=== PATIENT | male | born 1950 | race Caucasian/White ===

== ENCOUNTER 2018-06-18 15:26 | Inpatient (IN) | payer MEDICARE, OTHER ==
[~2018-06-18] VITALS: Ht 170.2 cm; Wt 88.5 kg
[2018-06-18 17:45] VITALS: BP 129/66
[2018-06-18] MEDS ORDERED: CALCIUM CARBONATE 500 MG TAB.CHEW PO PRN (18:00)
[2018-06-18] MEDS ORDERED: HYDROcodone/APAP 5/325MG 1 TAB TABLET PO PRN (18:00)
[2018-06-18] MEDS ORDERED: 0.9 % SODIUM CHLORIDE 10 ML DISP.SYRIN. IV PRN (18:00)
[2018-06-18] MEDS ORDERED: MAGNESIUM HYDROXIDE 2,400 MG/30 ML ORAL.SUSP. PO PRN (18:00)
[2018-06-18] MEDS ORDERED: ACETAMINOPHEN 325 MG TABLET. PO PRN (18:00)
[2018-06-18] MEDS ORDERED: fentaNYL PF VIAL 100 MCG/2 ML VIAL IV PRN (18:00)
--- NOTE | 2018-06-18 18:03 | HP ---
ADMIT DATE: 06/18/2018 REASON FOR ADMISSION: Lower extremity weakness. HISTORY OF PRESENT ILLNESS: The patient is a pleasant 67-year-old man who reports over the last month increasing pain in his lower back along with feelings of electricity radiating into his lower extremities and weakness in his lower extremities. He reports that he has had problems with intermittent leg numbness in the past, beginning a month ago he developed much more significant pain in his lower back along with numbness and weakness in his lower extremities. His left leg is more involved than the right. He has been taking gabapentin to try to help him. Recently, because of leg weakness and falling he has started to use a walker. He rates his pain as a 4-5/10. He reports no bowel or bladder difficulties. PAST MEDICAL HISTORY: He has renal disease. He has problems with cardiac rhythm and has a pacemaker. PERSONAL HISTORY: He is . He lives with his . MEDICATIONS: Available on the chart and are noncontributory. ALLERGIES: NKDA REVIEW OF SYSTEMS: A 12 points was reviewed and was negative. PHYSICAL EXAMINATION: GENERAL: He is pleasant, alert and cooperative. NEUROLOGIC: He is alert and oriented x 3. His strength was 4/5 in bilateral lower extremities. In his upper extremities, strength was 5/5. On sensory examination, his sensation was normal in the upper extremities. In his lower extremities, he noted a decrease in light touch, which began in the lower abdominal wall anteriorly and extended to involve both of his lower extremities. His left leg he felt was slightly more involved with decreased sensation on the right. On reflex testing, his upper extremity reflexes were 1+. In his lower extremities, knee jerks were 3+, ankle jerks were 1+. There were no pathologic reflexes. He walked using a walker to support himself. Earlier today, he underwent myelography to include the cervical, thoracic and lumbar spine. There are a significant number of abnormalities. In the lumbar spine, he has severe stenosis at L2-L3 and very severe stenosis at L3-L4, which could include a broad-based disk herniation. There is complete block at L3-L4. At T10-T11, there is a left-sided disk herniation with marked deviation of the spinal cord from the left to right and moderately severe spinal stenosis. In the cervical spine, at C5-C6 there is severe cervical spinal stenosis. ASSESSMENT AND PLAN: Based on his sensory level and his hyperreflexia, my concern is that the problem at T10-T11 is responsible for his recent severe deterioration. My plan at this point would be to admit him and have him undergo thoracic surgery to remove the thoracic disc herniation. I did discuss this with him and outlined the risks of this type of operation and possibility of paralysis with this sort of problem and surgery. He understands that this most likely would not correct all of his problems and most certainly at some point he is going to require lumbar surgery and cervical surgery for his significant problems. MICHEAL HERNANDEZ MD DR: THUY/kaye JOB#: [id number] / [id number] PEPE
--- NOTE | 2018-06-18 18:13 | EKG ---
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
[2018-06-18 18:41] LABS: BASO # 0.1 x10^3/uL (0.0-0.2); BASO % 1 % (0-3); EOS # 0.1 x10^3/uL (0.0-0.7); EOS % 2 % (0-3); HEMATOCRIT 44.3 % (39.0-53.0); HEMOGLOBIN 14.8 g/dL (13.0-17.5); LYMPH % 27 % (24-48); MEAN CORPUSCULAR HEMOGLOBIN 31 pg (25-35); MEAN CORPUSCULAR HGB CONC 33 g/dL (31-37); MEAN CORPUSCULAR VOLUME 94 fL (79-100); MONO # 0.6 x10^3/uL (0.0-1.1); MONO % 9 % (0-9); NEUT # 4.6 x10^3uL (1.8-7.7); NEUT % 62 % (31-73); PLATELET COUNT 153 x10^3/uL (140-400); RED BLOOD COUNT 4.71 x10^6/uL (4.30-5.70); RED CELL DISTRIBUTION WIDTH 12.4 % (11.5-14.5); WHITE BLOOD COUNT 7.4 x10^3/uL (4.0-11.0)
[2018-06-18 18:48] LABS: PROTHROMBIN TIME PATIENT 14.2 SEC (11.7-14.0)
[2018-06-18 18:57] LABS: ALBUMIN 3.8 g/dL (3.4-5.0); ALBUMIN/GLOBULIN RATIO 1.1 (1.0-1.7); CALCIUM 8.9 mg/dL (8.5-10.1); GFR 74.8; POTASSIUM 3.7 mmol/L (3.5-5.1); TOTAL BILIRUBIN 0.6 mg/dL (0.2-1.0); TOTAL PROTEIN 7.3 g/dL (6.4-8.2)
[2018-06-18 19:00] VITALS: BP 143/91
--- NOTE | 2018-06-18 19:00 | NUR ---
ADMIT Patient arrived on . Patient A/Ox4, room air. Several family members at bedside. Patient c/o pain in back, radiating down both legs 7/10, 3/10 with spasms down right and left legs, more so in right leg. Patient currently more comfortable in chair. Full admission assessment completed, fall precautions posted at this time. IV Access initiated. IVF will be started. Verified home meds, and placed in computer at this time. Passcode given to spouse at bedside. Discussed plan of care, NPO at 12am. Will continue to monitor closely.
[2018-06-18] MEDS ORDERED: LISI10TA2 PO (20:45)
[2018-06-18] MEDS ORDERED: LISI-334 PO (20:45)
[2018-06-18] MEDS ORDERED: OMEG1CAP6 PO (20:45)
[2018-06-18] MEDS ORDERED: MELO7.5T29 PO (20:45)
[2018-06-18] MEDS ORDERED: METO25TA4 PO (20:45)
[2018-06-18] MEDS ORDERED: HYDR12.59 PO (20:45)
[2018-06-18] MEDS ORDERED: ATOR20TA58 PO (20:45)
[2018-06-18] MEDS ORDERED: GABA300C18 PO (20:45)
[2018-06-18] MEDS ORDERED: AMLO5TAB10 PO (20:45)
[2018-06-18] MEDS: DOCUSATE SODIUM 100 MG CAPSULE. PO SCH (22:38)
[2018-06-18 23:00] VITALS: BP 143/91
[2018-06-18] MEDS: CYCLOBENZAPRINE 10 MG TABLET. PO PRN (23:08)
[2018-06-18] MEDS: POTASSIUM CL 20MEQ D5-0.45NACL 1,000 ML IV SCH (23:24)
[2018-06-19] MEDS: HYDROcodone/APAP 5/325MG 1 TAB TABLET PO PRN ×3 (00:02→20:45)
[2018-06-19 03:00] VITALS: BP 124/69
--- NOTE | 2018-06-19 06:41 | NUR ---
Routine consult called to Dr. Fernandes regarding pre-op cardiac clearance. Message left with Sarah at answering service.
--- NOTE | 2018-06-19 06:47 | NUR ---
Routine consult called to Dr. Le, [facility]. Message left with Malini, answering service. Dr. Win currently electronic tech.
[2018-06-19 07:00] VITALS: BP 138/73
[2018-06-19] MEDS: POTASSIUM CL 20MEQ D5-0.45NACL 1,000 ML IV SCH ×2 (07:07→17:20)
--- NOTE | 2018-06-19 07:51 | PDOC2 ---
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 He reports that he has had problems with intermittent leg numbness in the past, beginning a month ago he developed much more significant pain in his lower back along with numbness and weakness in his lower extremities. His left leg is more involved than the right. Recently, because of leg weakness and falling he has started to use a walker. He rates his pain as a 4-5/10. He reports no bowel or bladder difficulties. He notes gabapentin gives him minimal relief. He has significant thoracic stenosis and has had myelogram outpatient 06/18/18 to evidence this. Pt has not been having any chest pain, SOA. No cardiac symptoms. No palpitations, frequent dizziness. Denies any past CAD and it over 3 yrs since his last stress test. He does have hx of complete heart block s/p PPM which was originally placed at least the lead in 1990 then several generator change with the same lead since then with last generator change in 2014. 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 Past Medical History Cardiovascular: HTN, Other (PPM 2/2 complete heart block) Pulmonary: No pertinent hx GI: No pertinent hx Heme/Onc: No pertinent hx Hepatobiliary: No pertinent hx Psych: No pertinent hx Musculoskeletal: low back pain, Weakness Rheumatologic: No pertinent hx Infectious disease: No pertinent hx ENT: No pertinent hx Renal/: Chronic renal insuff Endocrine: No pertinent hx Dermatology: No pertinent hx Past Surgical History Past Surgical History: Pacemaker Family History Family History: High Cholestrol, Hypertension Social History No ALCOHOL: rare Drugs: None Lives: with Family Domestic Violence: Neg Current Medications Current Medications Current Medications Sodium Chloride (Normal Saline Flush) 3 ml PRN DAILY PRN IV AFTER MEDS AND BLOOD DRAWS; Start 06/18/18 at 18:00 Potassium Chloride/Dextrose/ Sod Cl 1,000 ml @ 75 mls/hr [id number] IV Last administered on 06/18/18at 23:24; Start 06/18/18 at 17:47 Calcium Carbonate/ Glycine (Tums) 500 mg PRN Q3HRS PRN PO UPSET STOMACH; Start 06/18/18 at 18:00 Acetaminophen/ Hydrocodone Bitart (Lortab 5/325) 1 tab PRN Q4HRS PRN PO MILD PAIN Last administered on 06/19/18at 05:45; Start 06/18/18 at 18:00 Acetaminophen/ Hydrocodone Bitart (Lortab 5/325) 2 tab PRN Q4HRS PRN PO MODERATE PAIN, SEVERE PAIN; Start 06/18/18 at 18:00 Acetaminophen (Tylenol) 650 mg PRN Q6HRS PRN PO Headaches, Temp > 101.5F; Start 06/18/18 at 18:00 Docusate Sodium (Colace) 100 mg BID PO ; Start 06/18/18 at 21:00 Magnesium Hydroxide (Milk Of Magnesia) 2,400 mg PRN Q12HR PRN PO CONSTIPATION; Start 06/18/18 at 18:00 Fentanyl Citrate (Fentanyl 2ml Vial) 25 mcg PRN Q2HR PRN IV MODERATE PAIN; Start 06/18/18 at 18:00 Cyclobenzaprine HCl (Flexeril) 10 mg PRN TID PRN PO MUSCLE SPASMS Last administered on 06/18/18at 23:08; Start 06/18/18 at 23:00 Amlodipine Besylate (Norvasc) 5 mg DAILY PO ; Start 06/19/18 at 09:00 Atorvastatin Calcium (Lipitor) 20 mg HS PO ; Start 06/19/18 at 21:00 Gabapentin (Neurontin) 300 mg TID PO ; Start 06/19/18 at 09:00 Lisinopril (Prinivil) 10 mg DAILY16 PO ; Start 06/19/18 at 16:00 Lisinopril (Prinivil) 20 mg DAILY PO ; Start 06/19/18 at 09:00 Metoprolol Tartrate (Lopressor) 25 mg BID PO ; Start 06/19/18 at 09:00 Hydrochlorothiazide (Microzide) 12.5 mg DAILY PO ; Start 06/19/18 at 09:00 Active Scripts Active Reported Meloxicam 7.5 Mg Tablet 1 Tab PO DAILY Fish Oil 1,000 Mg Capsule ([place]-3 Fatty Acids/Fish Oil) 1 Each Capsule 1 Each PO BID Hydrochlorothiazide 12.5 Mg Capsule 12.5 Mg PO DAILY Lisinopril 10 Mg Tablet 1 Tab PO DAILY16 Lisinopril 20 Mg Tablet 1 Tab PO DAILY Metoprolol Tartrate 25 Mg Tablet 1 Tab PO BID Gabapentin (Gabapentin) 300 Mg Capsule 300 Mg PO TID Atorvastatin Calcium 20 Mg Tablet 1 Tab PO DAILY Amlodipine Besylate 5 Mg Tablet 5 Mg PO DAILY Allergies Allergies: Coded Allergies: No Known Drug Allergies (Unverified , 06/18/18) ROS General: No: Chills, Night Sweats, Fatigue, Malaise, Appetite, Other PSYCHOLOGICAL ROS: No: Anxiety, Behavioral Disorder, Concentration difficultie , Decreased libido, Depression, Disorientation, Hallucinations, Hostility, Irritablity, Memory difficulties, Mood Swings, Obsessive thoughts, Physical abuse, Sexual abuse, Sleep disturbances, Suicidal ideation, Other Eyes: No Blurry vision, No Decreased vision, No Double vision, No Dry eyes, No Excessive tearing, No Eye Pain, No Itchy Eyes, No Loss of vision, No Photophobia , No Scotomata, No Uses contacts, No Uses glasses, No Other HEENT: No: Heacaches, Visual Changes, Hearing change, Nasal congestion, Nasal discharge, Oral lesions, Sinus pain, Sore Throat, Epistaxis, Sneezing, Snoring, Tinnitus, Vertigo, Vocal changes, Other ALLERGY AND IMMUNOLOGY: No: Hives, Insect Bite Sensitivity, Itchy/Watery Eyes, Nasal Congestion, Post Nasal Drip, Seasonal Allergies, Other Hematological and Lymphatic: No: Bleeding Problems, Blood Clots, Blood Transfusions, Brusing, Night Sweats, Pallor, Swollen Lymph Nodes, Other ENDOCRINE: No: Breast Changes, Galactorrhea, Hair Pattern Changes, Hot Flashes , Malaise/lethargy, Mood Swings, Palpitations, Polydipsia/polyuria, Skin Changes , Temperature Intolerance, Unexpected Weight Changes, Other Breast: No New/Changing Breast Lumps, No Nipple changes, No Nipple discharge, No Other Respiratory: No: Cough, Hemoptysis, Orthopnea, Pleuritic Pain, Shortness of breath, SOB with excertion, Sputum Changes, Stridor, Tachypnea, Wheezing, Other Cardiovascular: No Chest Pain, No Palpitations, No Orthopnea, No Paroxysmal Noc. Dyspnea, No Edema, No Lt Headedness, No Other Gastrointestinal: No Nausea, No Vomiting, No Abdominal Pain, No Diarrhea, No Constipation, No Melena, No Hematochezia, No Other Genitourinary: No Dysuria, No Frequency, No Incontinence, No Hematuria, No Retention, No Discharge, No Urgency, No Pain, No Flank Pain, No Other, No , No , No , No , No , No , No Musculoskeletal: Yes Gait Disturbance, Yes Joint Pain, Yes Joint Stiffness, Yes Muscle Pain, Yes Muscular Weakness; No Joint Swelling, No Pain In:, No Swelling In:, No Other Neurological: Yes Gait Disturbance, Yes Impaired Coord/balance, Yes Numbness/ Tingling; No Behavorial Changes, No Bowel/Bladder ControlChng, No Confusion, No Dizziness, No Headaches, No Memory Loss, No Seizures, No Speech Problems, No Tremors, No Visual Changes, No Weakness, No Other Skin: No Dry Skin, No Eczema, No Hair Changes, No Lumps, No Mole Changes, No Mottling, No Nail Changes, No Pruritus, No Rash, No Skin Lesion Changes, No Other, No Acne Physical Exam Physical Exam His strength was 4/5 in bilateral lower extremities. In his upper extremities, strength was 5/5. On sensory examination, his sensation was normal in the upper extremities. In his lower extremities, he noted a decrease in light touch , which began in the lower abdominal wall anteriorly and extended to involve both of his lower extremities. His left leg he felt was slightly more involved with decreased sensation on the right. On reflex testing, his upper extremity reflexes were 1+. In his lower extremities, knee jerks were 3+, ankle jerks were 1+. There were no pathologic reflexes. He walked using a walker to support himself. General: Alert, Oriented X3, Cooperative, No acute distress HEENT: Atraumatic, PERRLA, EOMI, Mucous membr. moist/pink Lungs: Clear to auscultation, Normal air movement Heart: Regular rate, Normal S1, Normal S2, No murmurs Abdomen: Normal bowel sounds, Soft, No tenderness, No hepatosplenomegaly, No masses Extremities: No clubbing, No cyanosis, No edema, Normal pulses, No tenderness/ swelling Skin: No rashes, No breakdown Neuro: Normal speech, Normal tone, Cranial nerves 3-12 NL, Reflexes 2+ ( Hyperreflexic left leg, some fasciculations), Other (H) Psych/Mental Status: Mental status NL, Mood NL MUSCULOSKELETAL: No joint tenderness, No deformity, No swelling, No muscular tenderness noted Vitals VITALS Vital Signs Date Time Temp Pulse Resp B/P (MAP) Pulse Ox O2 Delivery O2 Flow Rate FiO2 06/19/18 07:00 97.9 60 18 138/73 (94) 96 Room Air 97.9 Labs Labs Laboratory Tests Test 06/18/18 18:25 White Blood Count 7.4 x10^3/uL (4.0-11.0) Red Blood Count 4.71 x10^6/uL (4.30-5.70) Hemoglobin 14.8 g/dL (13.0-17.5) Hematocrit 44.3 % (39.0-53.0) Mean Corpuscular Volume 94 fL (79-100) Mean Corpuscular Hemoglobin 31 pg (25-35) Mean Corpuscular Hemoglobin Concent 33 g/dL (31-37) Red Cell Distribution Width 12.4 % (11.5-14.5) Platelet Count 153 x10^3/uL (140-400) Neutrophils (%) (Auto) 62 % (31-73) Lymphocytes (%) (Auto) 27 % (24-48) Monocytes (%) (Auto) 9 % (0-9) Eosinophils (%) (Auto) 2 % (0-3) Basophils (%) (Auto) 1 % (0-3) Neutrophils # (Auto) 4.6 x10^3uL (1.8-7.7) Lymphocytes # (Auto) 2.0 x10^3/uL (1.0-4.8) Monocytes # (Auto) 0.6 x10^3/uL (0.0-1.1) Eosinophils # (Auto) 0.1 x10^3/uL (0.0-0.7) Basophils # (Auto) 0.1 x10^3/uL (0.0-0.2) Prothrombin Time 14.2 SEC (11.7-14.0) Prothromb Time International Ratio 1.1 (0.8-1.1) Sodium Level 142 mmol/L (136-145) Potassium Level 3.7 mmol/L (3.5-5.1) Chloride Level 106 mmol/L (98-107) Carbon Dioxide Level 26 mmol/L (21-32) Anion Gap 10 (6-14) Blood Urea Nitrogen 27 mg/dL (8-26) Creatinine 1.0 mg/dL (0.7-1.3) Estimated GFR (Cockcroft-Gault) 74.8 BUN/Creatinine Ratio 27 (6-20) Glucose Level 101 mg/dL (70-99) Calcium Level 8.9 mg/dL (8.5-10.1) Total Bilirubin 0.6 mg/dL (0.2-1.0) Aspartate Amino Transf (AST/SGOT) 23 U/L (15-37) Alanine Aminotransferase (ALT/SGPT) 24 U/L (16-63) Alkaline Phosphatase 68 U/L (46-116) Total Protein 7.3 g/dL (6.4-8.2) Albumin 3.8 g/dL (3.4-5.0) Albumin/Globulin Ratio 1.1 (1.0-1.7) Laboratory Tests Test 06/18/18 18:25 White Blood Count 7.4 x10^3/uL (4.0-11.0) Red Blood Count 4.71 x10^6/uL (4.30-5.70) Hemoglobin 14.8 g/dL (13.0-17.5) Hematocrit 44.3 % (39.0-53.0) Mean Corpuscular Volume 94 fL (79-100) Mean Corpuscular Hemoglobin 31 pg (25-35) Mean Corpuscular Hemoglobin Concent 33 g/dL (31-37) Red Cell Distribution Width 12.4 % (11.5-14.5) Platelet Count 153 x10^3/uL (140-400) Neutrophils (%) (Auto) 62 % (31-73) Lymphocytes (%) (Auto) 27 % (24-48) Monocytes (%) (Auto) 9 % (0-9) Eosinophils (%) (Auto) 2 % (0-3) Basophils (%) (Auto) 1 % (0-3) Neutrophils # (Auto) 4.6 x10^3uL (1.8-7.7) Lymphocytes # (Auto) 2.0 x10^3/uL (1.0-4.8) Monocytes # (Auto) 0.6 x10^3/uL (0.0-1.1) Eosinophils # (Auto) 0.1 x10^3/uL (0.0-0.7) Basophils # (Auto) 0.1 x10^3/uL (0.0-0.2) Prothrombin Time 14.2 SEC (11.7-14.0) Prothromb Time International Ratio 1.1 (0.8-1.1) Sodium Level 142 mmol/L (136-145) Potassium Level 3.7 mmol/L (3.5-5.1) Chloride Level 106 mmol/L (98-107) Carbon Dioxide Level 26 mmol/L (21-32) Anion Gap 10 (6-14) Blood Urea Nitrogen 27 mg/dL (8-26) Creatinine 1.0 mg/dL (0.7-1.3) Estimated GFR (Cockcroft-Gault) 74.8 BUN/Creatinine Ratio 27 (6-20) Glucose Level 101 mg/dL (70-99) Calcium Level 8.9 mg/dL (8.5-10.1) Total Bilirubin 0.6 mg/dL (0.2-1.0) Aspartate Amino Transf (AST/SGOT) 23 U/L (15-37) Alanine Aminotransferase (ALT/SGPT) 24 U/L (16-63) Alkaline Phosphatase 68 U/L (46-116) Total Protein 7.3 g/dL (6.4-8.2) Albumin 3.8 g/dL (3.4-5.0) Albumin/Globulin Ratio 1.1 (1.0-1.7) Images Images Myelogram - In the lumbar spine, he has severe stenosis at L2-L3 and very severe stenosis at L3-L4, which could include a broad-based disk herniation. There is complete block at L3-L4. At T10-T11, there is a left-sided disk herniation with marked deviation of the spinal cord from the left to right and moderately severe spinal stenosis. In the cervical spine, at C5-C6 there is severe cervical spinal stenosis. Assessment/Plan Assessment/Plan A/P: Lower extremity numbness and weakness - likely compression at T10-T11 is responsible for his recent severe weakness and numbness HTN - controlled CKD1 - IVF 500cc-1000cc pre op appropriate. Labs stable Complete heart block s/p PPM in situ - medtronic device, cardiology will interrogate. EKG shows a sinus rhythm. Can have Echocardiogram VILLA on CPAP - has brought his device. I recommend bedside BIPAP availability post-operatively for respiratory bridging to avoid prolonged vent stay Patient would be at moderate cardiovascular risk for lower risk noncardiac surgery. Recommend routine pacer care intraoperatively per anesthesia protocol No further testing necessary prior to planned surgery tomorrow FEN - cardiac diet, npo after midnight PPX - ambulatory, post op lovenox FULL CODE Inpatient for likely thoracic spinal compression, at least 2 midnights of inpatient care. 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 CHUY JHA MD Jun 19, 2018 07:51
[2018-06-19] MEDS: DOCUSATE SODIUM 100 MG CAPSULE. PO SCH ×2 (08:37→20:44)
[2018-06-19] MEDS: hydroCHLOROthiazide 12.5 MG CAPSULE PO SCH ×2 (09:00→14:32)
[2018-06-19] MEDS: GABAPENTIN 300 MG CAPSULE. PO SCH ×3 (09:00→20:45)
[2018-06-19] MEDS: LISINOPRIL 20 MG TABLET PO SCH ×2 (09:00→14:33)
[2018-06-19] MEDS: amLODIPine BESYLATE 5 MG TABLET PO SCH ×2 (09:00→14:33)
--- NOTE | 2018-06-19 09:40 | PDOC2 ---
CARDIAC CONSULT DATE OF CONSULT Date of Consult DATE: 06/19/18 TIME: 09:25 REASON FOR CONSULT Reason for Consult: Preo clearance REFERRING PHYSICIAN Referring Physician: Douglas SOURCE Source: Chart review, Patient HISTORY OF PRESENT ILLNESS HISTORY OF PRESENT ILLNESS This is a pleasant 67 yo male admitted for complains of persistent leg weakness , back pain. He has significant thoracic stenosis and has been having worsening symptoms such as decreased LE mobility, sensation and back pain. Surgery for decompression is planned today and requiring perop eval. Pt has not been having any chest pain, SOA. No cardiac symptoms. No palpitations, frequent dizziness. Denies any past CAD and it over 3 yrs since his last stress test. He does have hx of complete heart which was originally placed at least the lead in 1990 then several generator change with the same lead since then with last generator change in 2014. 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 He has HTn and takes his meds regularly. PAST MEDICAL HISTORY Cardiovascular: HTN, Other (CHF) Pulmonary: Other (VILLA with CPAP) GI: No pertinent hx Heme/Onc: No pertinent hx Hepatobiliary: No pertinent hx Psych: No pertinent hx Musculoskeletal: low back pain, Osteoarthritis Rheumatologic: No pertinent hx Infectious disease: No pertinent hx Renal/: No pertinent hx Endocrine: No pertinent hx Dermatology: No pertinent hx PAST SURGICAL HISTORY Past Surgical History: Pacemaker (with several gen change last done in 2014), Other (cervical fusion) FAMILY HISTORY Family History: Heart Disease (father) SOCIAL HISTORY Smoke: No ALCOHOL: none Drugs: None Lives: with Family CURRENT MEDICATIONS CURRENT MEDICATIONS Current Medications Medications (Trade) Dose Ordered Sig/Antonina Route PRN Reason Start Time Stop Time Status Last Admin Dose Admin Potassium Chloride/Dextrose/ Sod Cl 1,000 ml @ 75 mls/hr [id number] IV 06/18/18 17:47 06/18/18 23:24 Acetaminophen/ Hydrocodone Bitart (Lortab 5/325) 1 tab PRN Q4HRS PRN PO MILD PAIN 06/18/18 18:00 06/19/18 05:45 Cyclobenzaprine HCl (Flexeril) 10 mg PRN TID PRN PO MUSCLE SPASMS 06/18/18 23:00 06/18/18 23:08 ALLERGIES ALLERGIES: Coded Allergies: No Known Drug Allergies (Unverified , 06/18/18) ROS Review of System 14 point ROS evaluated with pertinent positives noted per HPI PHYSICAL EXAM General: Alert, Oriented X3, Cooperative, No acute distress HEENT: Atraumatic, Mucous membr. moist/pink Lungs: Clear to auscultation, Normal air movement Heart: Regular rate (SR), Normal S1, Normal S2, Other (2/6 systolic murmur to LLS border) Abdomen: Soft, No tenderness Extremities: No cyanosis, No edema Skin: No breakdown, No significant lesion Neuro: Normal speech, Other (decrease LE sensation and weakness. ) Psych/Mental Status: Mental status NL, Mood NL MUSCULOSKELETAL: Osteoarthritic changes both hands VITALS VITALS Vital Signs Date Time Temp Pulse Resp B/P (MAP) Pulse Ox O2 Delivery O2 Flow Rate FiO2 06/19/18 07:00 97.9 60 18 138/73 (94) 96 Room Air 97.9 LABS Lab: Laboratory Tests Test 06/18/18 18:25 White Blood Count 7.4 x10^3/uL (4.0-11.0) Red Blood Count 4.71 x10^6/uL (4.30-5.70) Hemoglobin 14.8 g/dL (13.0-17.5) Hematocrit 44.3 % (39.0-53.0) Mean Corpuscular Volume 94 fL (79-100) Mean Corpuscular Hemoglobin 31 pg (25-35) Mean Corpuscular Hemoglobin Concent 33 g/dL (31-37) Red Cell Distribution Width 12.4 % (11.5-14.5) Platelet Count 153 x10^3/uL (140-400) Neutrophils (%) (Auto) 62 % (31-73) Lymphocytes (%) (Auto) 27 % (24-48) Monocytes (%) (Auto) 9 % (0-9) Eosinophils (%) (Auto) 2 % (0-3) Basophils (%) (Auto) 1 % (0-3) Neutrophils # (Auto) 4.6 x10^3uL (1.8-7.7) Lymphocytes # (Auto) 2.0 x10^3/uL (1.0-4.8) Monocytes # (Auto) 0.6 x10^3/uL (0.0-1.1) Eosinophils # (Auto) 0.1 x10^3/uL (0.0-0.7) Basophils # (Auto) 0.1 x10^3/uL (0.0-0.2) Prothrombin Time 14.2 SEC (11.7-14.0) Prothromb Time International Ratio 1.1 (0.8-1.1) Sodium Level 142 mmol/L (136-145) Potassium Level 3.7 mmol/L (3.5-5.1) Chloride Level 106 mmol/L (98-107) Carbon Dioxide Level 26 mmol/L (21-32) Anion Gap 10 (6-14) Blood Urea Nitrogen 27 mg/dL (8-26) Creatinine 1.0 mg/dL (0.7-1.3) Estimated GFR (Cockcroft-Gault) 74.8 BUN/Creatinine Ratio 27 (6-20) Glucose Level 101 mg/dL (70-99) Calcium Level 8.9 mg/dL (8.5-10.1) Total Bilirubin 0.6 mg/dL (0.2-1.0) Aspartate Amino Transf (AST/SGOT) 23 U/L (15-37) Alanine Aminotransferase (ALT/SGPT) 24 U/L (16-63) Alkaline Phosphatase 68 U/L (46-116) Total Protein 7.3 g/dL (6.4-8.2) Albumin 3.8 g/dL (3.4-5.0) Albumin/Globulin Ratio 1.1 (1.0-1.7) ASSESSMENT/PLAN ASSESSMENT/PLAN 1. Severe thoracic stenosis with increasing LE symptoms: needing surgery per neurosurgery 2. HTN: controlled 3. PPM in situ: medtronic due to past CHB. Presently EKG appears to be SB with likely lowest setting at 50 Recommendations 1. Continue perop BB. TTE today. Pending TTE he is low risk for preoperative CV events for noncardiac surgery. 2. Restart home BP regimen after surgery 3. Will try to interrogate device. CHANDANA MCKENZIE APRN Jun 19, 2018 09:40
[2018-06-19] MEDS: METOPROLOL TART IMMED RELEASE 25 MG TABLET. PO SCH ×2 (10:03→20:46)
--- NOTE | 2018-06-19 10:22 | CARD ---
MR#: [id number] Date of Study: 06/19/2018 Ordering Physician: CHANDANA MCKENZIE, Referring Physician: MICHEAL HERNANDEZ Tech: Becca Sainz KARLIE APPROVED REPORT EXAM: Two-dimensional and M-mode echocardiogram with Doppler and color Doppler. Other Information Quality : Good INDICATION Pre-Op Surgery/Intervention Pacemaker: Date: 2000 2D DIMENSIONS RVDd2.3 (2.9-3.5cm)Left Atrium(2D)4.0 (1.6-4.0cm) IVSd0.9 (0.7-1.1cm)Aortic Root(2D)3.1 (2.0-3.7cm) LVDd5.6 (3.9-5.9cm)LVOT Diameter2.0 (1.8-2.4cm) PWd0.7 (0.7-1.1cm)LVDs2.8 (2.5-4.0cm) FS (%) 30.0 %LVEF(%)60.0 (>50%) Aortic Valve AoV Peak Noman.168.2cm/sAoV VTI31.7cm AO Peak GR.11.3mmHgLVOT VTI 26.32cm AO Mean GR.6mmHgAVA (VTI)2.50cm2 Mitral Valve MV E Fqvetocw475.2cm/sMV DECEL VEMQ989xo MV A Ywkqrmsb02.4cm/sE/A Ratio1.3 TDI Lateral E' P. V10.21cm/sMedial E' P. V7.98cm/s E/Lateral E'12.2E/Medial E'15.6 Tricuspid Valve TR P. Tbommvud814mo/sRAP QHNCKJUE1joCz TR Peak Gr.31tnYwPDGM61efPh Pulmonary Vein S1 Mutqtwlu58.7cm/sS2 Ayjaomiq05.92cm/s D2 Kehdwrki49.9cm/s LEFT VENTRICLE The Left Ventricle is mildly dilated. There is normal left ventricular wall thickness. The left ventr icular systolic function is normal and the ejection fraction is within normal range. The Ejection Fra ction is 55-60%. There is normal LV segmental wall motion. Transmitral Doppler flow pattern is Grade I-abnormal relaxation pattern. RIGHT VENTRICLE The right ventricle is normal size. The right ventricular systolic function is normal. There is a pac emaker lead in the right ventricle. ATRIA The left atrium is mildly dilated. The right atrium size is normal. A pacemaker is seen in the right atrium consistent with history. The interatrial septum is intact with no evidence for an atrial septa l defect or patent foramen ovale as noted on 2-D or Doppler imaging. AORTIC VALVE The aortic valve is calcified but opens well. Doppler and Color Flow revealed no significant aortic r egurgitation. There is no significant aortic valvular stenosis. MITRAL VALVE The mitral valve is calcified but opens well. Mitral annular calcification is mild. There is no evide nce of mitral valve prolapse. There is no mitral valve stenosis. Doppler and Color-flow revealed trac e to mild mitral regurgitation. TRICUSPID VALVE The tricuspid valve is normal in structure and function. Doppler and Color Flow revealed physiologica l tricuspid regurgitation. The PA pressure was estimated at 31 mmHg. There is no tricuspid valve sten osis. PULMONIC VALVE The pulmonic valve is not well visualized. Doppler and Color Flow revealed trace pulmonic valvular re gurgitation. There is no pulmonic valvular stenosis. GREAT VESSELS The aortic root is normal in size. The ascending aorta is normal in size. The IVC is normal in size a nd collapses >50% with inspiration. PERICARDIAL EFFUSION There is no evidence of significant pericardial effusion. Critical Notification Critical Value: No <Conclusion> The left ventricular systolic function is normal and the ejection fraction is within normal range. Th e Ejection Fraction is 55-60%. There is normal LV segmental wall motion. There is a pacemaker lead in the right ventricle. Signed by : Sage Fernandes, Electronically Approved : 06/19/2018 10:21:12
[2018-06-19 11:00] VITALS: BP 150/81
[2018-06-19] MEDS: CYCLOBENZAPRINE 10 MG TABLET. PO PRN ×2 (11:45→20:53)
--- NOTE | 2018-06-19 11:48 | NUR ---
SW following for discharge planning. Discussed with RN, pt is from home with . Possible surgery today. PT/OT will need to be reordered after surgery. SW will continue to follow.
--- NOTE | 2018-06-19 12:14 | RAD ---
CT of the thoracic spine without contrast, 06/19/2018: History: Brain lab study for surgical localization, spinal stenosis Multidetector CT imaging was performed with multiplanar reconstructions produced. The data was transferred to the operating room to aid in the patient's stereotactically guided surgery. There are multilevel degenerative changes in the thoracic spine. There is residual contrast material within the thecal sac from yesterday's myelogram. Central spinal stenosis is again identified at the T10-11 level, better demonstrated and fully described on yesterday's CT myelogram. Spinal stenosis is also noted at L2-3 and L3-4, as also described on yesterday's exam. PQRS Compliance Statement: One or more of the following individualized dose reduction techniques were utilized for this examination: 1. Automated exposure control 2. Adjustment of the mA and/or kV according to patient size 3. Use of iterative reconstruction technique
[2018-06-19 15:00] VITALS: BP 186/60
[2018-06-19] MEDS: LISINOPRIL 10 MG TABLET PO SCH (17:20)
[2018-06-19 19:00] VITALS: BP 114/72
[2018-06-19] MEDS: ATORVASTATIN CALCIUM 20 MG TABLET PO SCH (20:45)
[2018-06-19] MEDS ORDERED: MAG HYDROX/ALUMINUM HYD/SIMETH 30 ML ORAL.SUSP PO PRN (22:00)
[2018-06-19 23:00] VITALS: BP 112/75
[2018-06-20] VITALS (10 sets, daily range): BP systolic 104–146; BP diastolic 60–81
[2018-06-20] MEDS ORDERED: BACITRACIN 50,000 UNIT in IV NORMAL SALINE 1000ML BAG 1,000 ML IRR ONE (06:00)
[2018-06-20] MEDS ORDERED: BUPIVAC MPF-EPI 0.5%-1:200000 30 ML VIAL. ONE (06:52)
[2018-06-20] MEDS ORDERED: THROMBIN TOPICAL 20,000 UNIT SPRAY.SYRN KIT TP ONE (06:52)
[2018-06-20] MEDS ORDERED: GELATIN SPONGE SIZE 100. ONE (06:52)
[2018-06-20] MEDS ORDERED: KETOROLAC 60 MG/2 ML INJ FOR OR. ONE (06:52)
[2018-06-20] MEDS ORDERED: HYDROmorphone 2 MG/ML VIAL IV PRN (07:00)
[2018-06-20] MEDS ORDERED: fentaNYL PF VIAL 100 MCG/2 ML VIAL IV PRN ×2 (07:00)
[2018-06-20] MEDS ORDERED: ONDANSETRON PF 4 MG/2 ML VIAL. IV PRN (07:00)
[2018-06-20] MEDS ORDERED: MORPHINE SULFATE 2 MG/ML VIAL. IV PRN (07:00)
[2018-06-20] MEDS ORDERED: IV RINGERS,LACTATED 1000ML 1,000 ML IV SCH (07:00)
[2018-06-20] MEDS ORDERED: LIDOCAINE 1% PF 2 ML VIAL. ID PRN (07:00)
[2018-06-20] MEDS ORDERED: PROCHLORPERAZINE 10 MG/2 ML VIAL. IV PRN (07:00)
[2018-06-20] MEDS ORDERED: PROPOFOL 20 ML IV ONE (07:42)
[2018-06-20] MEDS ORDERED: PROPOFOL 50 ML IV ONE ×2 (07:42→10:43)
[2018-06-20] MEDS ORDERED: ROCURONIUM 50 MG/5 ML VIAL. ONE (07:43)
[2018-06-20] MEDS ORDERED: LIDOCAINE 2% PF 5 ML VIAL. ONE (07:43)
[2018-06-20] MEDS ORDERED: fentaNYL PF VIAL 100 MCG/2 ML VIAL ONE (07:43)
[2018-06-20] MEDS ORDERED: REMIFENTANIL 2 MG VIAL. IV ONE (07:43)
[2018-06-20] MEDS ORDERED: SUCCINYLCHOLINE 200 MG/10 ML VIAL. ONE (07:43)
--- NOTE | 2018-06-20 08:06 | PDOC ---
PROGRESS NOTES Chief Complaint Chief Complaint A/P: Lower extremity numbness and weakness - likely compression at T10-T11 is responsible for his recent severe weakness and numbness HTN - controlled CKD1 - IVF 500cc-1000cc pre op appropriate. Labs stable Complete heart block s/p PPM in situ - medtronic device, cardiology will interrogate. EKG shows a sinus rhythm. Can have Echocardiogram VILLA on CPAP - has brought his device. I recommend bedside BIPAP availability post-operatively for respiratory bridging to avoid prolonged vent stay Patient would be at moderate cardiovascular risk for lower risk noncardiac surgery. Recommend routine pacer care intraoperatively per anesthesia protocol No further testing necessary prior to planned surgery tomorrow FEN - cardiac diet, npo after midnight PPX - ambulatory, post op lovenox FULL CODE Inpatient for likely thoracic spinal compression, at least 2 midnights of inpatient care. 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 History of Present Illness History of Present Illness Mr Gomez is a pleasant 67-year-old man w/ PMHx VILLA on CPAP, HTN, 3rd degree heart block s/p PPM, CKD1 who reports over the last month increasing pain in his lower back along with feelings of electricity radiating into his lower extremities and weakness in his bilateral lower extremities. He reports that he has had problems with intermittent leg numbness in the past, beginning a month ago he developed much more significant pain in his lower back along with numbness and weakness in his lower extremities. His left leg is more involved than the right. Recently, because of leg weakness and falling he has started to use a walker. He rates his pain as a 4-5/10. He reports no bowel or bladder difficulties. He notes gabapentin gives him minimal relief. He has significant thoracic stenosis and has had myelogram outpatient 06/18/18 to evidence this. Slept ok with CPAP overnight. To OR today Vitals Vitals Vital Signs Date Time Temp Pulse Resp B/P (MAP) Pulse Ox O2 Delivery O2 Flow Rate FiO2 06/20/18 07:05 99.0 62 15 140/72 97 Room Air 99.0 Physical Exam General: Alert, Oriented X3, Cooperative, No acute distress Heart: Regular rate, Normal S1, Normal S2, No murmurs Abdomen: Normal bowel sounds, Soft, No tenderness, No hepatosplenomegaly, No masses Extremities: No clubbing, No cyanosis, No edema, Normal pulses, No tenderness/ swelling Skin: No rashes, No breakdown Comment Review of Relevant I have reviewed the following items khanh (where applicable) has been applied. Labs Laboratory Tests Test 06/18/18 18:25 White Blood Count 7.4 x10^3/uL (4.0-11.0) Red Blood Count 4.71 x10^6/uL (4.30-5.70) Hemoglobin 14.8 g/dL (13.0-17.5) Hematocrit 44.3 % (39.0-53.0) Mean Corpuscular Volume 94 fL (79-100) Mean Corpuscular Hemoglobin 31 pg (25-35) Mean Corpuscular Hemoglobin Concent 33 g/dL (31-37) Red Cell Distribution Width 12.4 % (11.5-14.5) Platelet Count 153 x10^3/uL (140-400) Neutrophils (%) (Auto) 62 % (31-73) Lymphocytes (%) (Auto) 27 % (24-48) Monocytes (%) (Auto) 9 % (0-9) Eosinophils (%) (Auto) 2 % (0-3) Basophils (%) (Auto) 1 % (0-3) Neutrophils # (Auto) 4.6 x10^3uL (1.8-7.7) Lymphocytes # (Auto) 2.0 x10^3/uL (1.0-4.8) Monocytes # (Auto) 0.6 x10^3/uL (0.0-1.1) Eosinophils # (Auto) 0.1 x10^3/uL (0.0-0.7) Basophils # (Auto) 0.1 x10^3/uL (0.0-0.2) Prothrombin Time 14.2 SEC (11.7-14.0) Prothromb Time International Ratio 1.1 (0.8-1.1) Sodium Level 142 mmol/L (136-145) Potassium Level 3.7 mmol/L (3.5-5.1) Chloride Level 106 mmol/L (98-107) Carbon Dioxide Level 26 mmol/L (21-32) Anion Gap 10 (6-14) Blood Urea Nitrogen 27 mg/dL (8-26) Creatinine 1.0 mg/dL (0.7-1.3) Estimated GFR (Cockcroft-Gault) 74.8 BUN/Creatinine Ratio 27 (6-20) Glucose Level 101 mg/dL (70-99) Calcium Level 8.9 mg/dL (8.5-10.1) Total Bilirubin 0.6 mg/dL (0.2-1.0) Aspartate Amino Transf (AST/SGOT) 23 U/L (15-37) Alanine Aminotransferase (ALT/SGPT) 24 U/L (16-63) Alkaline Phosphatase 68 U/L (46-116) Total Protein 7.3 g/dL (6.4-8.2) Albumin 3.8 g/dL (3.4-5.0) Albumin/Globulin Ratio 1.1 (1.0-1.7) Medications Current Medications Sodium Chloride (Normal Saline Flush) 3 ml PRN DAILY PRN IV AFTER MEDS AND BLOOD DRAWS; Start 06/18/18 at 18:00 Potassium Chloride/Dextrose/ Sod Cl 1,000 ml @ 75 mls/hr [id number] IV Last administered on 06/19/18at 17:20; Start 06/18/18 at 17:47 Calcium Carbonate/ Glycine (Tums) 500 mg PRN Q3HRS PRN PO UPSET STOMACH; Start 06/18/18 at 18:00 Acetaminophen/ Hydrocodone Bitart (Lortab 5/325) 1 tab PRN Q4HRS PRN PO MILD PAIN Last administered on 06/19/18at 20:45; Start 06/18/18 at 18:00 Acetaminophen/ Hydrocodone Bitart (Lortab 5/325) 2 tab PRN Q4HRS PRN PO MODERATE PAIN, SEVERE PAIN; Start 06/18/18 at 18:00 Acetaminophen (Tylenol) 650 mg PRN Q6HRS PRN PO Headaches, Temp > 101.5F; Start 06/18/18 at 18:00 Docusate Sodium (Colace) 100 mg BID PO Last administered on 06/19/18at 20:44; Start 06/18/18 at 21:00 Magnesium Hydroxide (Milk Of Magnesia) 2,400 mg PRN Q12HR PRN PO CONSTIPATION; Start 06/18/18 at 18:00 Fentanyl Citrate (Fentanyl 2ml Vial) 25 mcg PRN Q2HR PRN IV MODERATE PAIN; Start 06/18/18 at 18:00 Cyclobenzaprine HCl (Flexeril) 10 mg PRN TID PRN PO MUSCLE SPASMS Last administered on 06/19/18 20:53; Start 06/18/18 at 23:00 Amlodipine Besylate (Norvasc) 5 mg DAILY PO Last administered on 06/19/18 14:33 ; Start 06/19/18 at 09:00 Atorvastatin Calcium (Lipitor) 20 mg HS PO Last administered on 06/19/18 20:45 ; Start 06/19/18 at 21:00 Gabapentin (Neurontin) 300 mg TID PO Last administered on 06/19/18 20:45; Start 06/19/18 at 09:00 Lisinopril (Prinivil) 10 mg DAILY16 PO Last administered on 06/19/18 17:20; Start 06/19/18 at 16:00 Lisinopril (Prinivil) 20 mg DAILY PO Last administered on 06/19/18 14:33; Start 06/19/18 at 09:00 Metoprolol Tartrate (Lopressor) 25 mg BID PO Last administered on 06/19/18 20: 46; Start 06/19/18 at 09:00 Hydrochlorothiazide (Microzide) 12.5 mg DAILY PO Last administered on 06/19/18 14:32; Start 06/19/18 at 09:00 Bacitracin 55137 unit/Sodium Chloride 1,000 ml @ 1,000 mls/hr 1X ONCE IRR ; Start 06/20/18 at 06:00; Stop 06/20/18 at 06:59; Status DC Ondansetron HCl (Zofran) 4 mg PRN Q6HRS PRN IV NAUSEA/VOMITING; Start 06/20/18 at 07:00; Stop 06/21/18 at 06:59 Fentanyl Citrate (Fentanyl 2ml Vial) 25 mcg PRN Q5MIN PRN IV MILD PAIN; Start 06/20/18 at 07:00; Stop 06/21/18 at 06:59 Fentanyl Citrate (Fentanyl 2ml Vial) 50 mcg PRN Q5MIN PRN IV MODERATE TO SEVERE PAIN; Start 06/20/18 at 07:00; Stop 06/21/18 at 06:59 Morphine Sulfate (Morphine Sulfate) 1 mg PRN Q10MIN PRN IV SEVERE PAIN; Start 06/20/18 at 07:00; Stop 06/21/18 at 06:59 Ringer's Solution 1,000 ml @ 30 mls/hr Q24H IV ; Start 06/20/18 at 07:00; Stop 06/20/18 at 18:59 Lidocaine HCl (Xylocaine-Mpf 1% 2ml Vial) 2 ml PRN 1X PRN ID IV START; Start at 07:00; Stop 06/21/18 at 06:59 Hydromorphone HCl (Dilaudid) 0.5 mg PRN Q10MIN PRN IV SEV PAIN, Second choice; Start 06/20/18 at 07:00; Stop 06/21/18 at 06:59 Prochlorperazine Edisylate (Compazine) 5 mg PACU PRN PRN IV NAUSEA, MRX1; Start 06/20/18 at 07:00; Stop 06/21/18 at 06:59 Al Hydroxide/Mg Hydroxide (Mylanta Plus Xs) 30 ml PRN Q4HRS PRN PO HEARTBURN / GAS; Start 06/19/18 at 22:00; Status Cancel Gelatin (Gelfoam Size 100) 1 each STK-MED ONCE .ROUTE ; Start 06/20/18 at 06:52 ; Stop 06/20/18 at 06:53; Status DC Bupivacaine HCl/ Epinephrine Bitart (Sensorcain-Mpf Epi 0.5%-1:[id number]) 30 ml STK -MED ONCE .ROUTE ; Start 06/20/18 at 06:52; Stop 06/20/18 at 06:53; Status DC Ketorolac Tromethamine (Toradol For Or Only) 60 mg STK-MED ONCE .ROUTE ; Start 06/20/18 at 06:52; Stop 06/20/18 at 06:53; Status DC Thrombin 20,000 unit STK-MED ONCE TP ; Start 06/20/18 at 06:52; Stop 06/20/18 at 06:53; Status DC Propofol 20 ml @ As Directed STK-MED ONCE IV ; Start 06/20/18 at 07:42; Stop 06/20 at 07:43; Status DC Propofol 50 ml @ As Directed STK-MED ONCE IV ; Start 06/20/18 at 07:42; Stop 06/20 at 07:43; Status DC Fentanyl Citrate (Fentanyl 2ml Vial) 100 mcg STK-MED ONCE .ROUTE ; Start at 07:43; Stop 06/20/18 at 07:44; Status DC Succinylcholine Chloride (Anectine) 200 mg STK-MED ONCE .ROUTE ; Start 06/20/18 at 07:43; Stop 06/20/18 at 07:44; Status DC Rocuronium [place] (Zemuron) 50 mg STK-MED ONCE .ROUTE ; Start 06/20/18 at 07:43 ; Stop 06/20/18 at 07:44; Status DC Remifentanil HCl (Ultiva) 2 mg STK-MED ONCE IV ; Start 06/20/18 at 07:43; Stop at 07:44; Status DC Lidocaine HCl (Lidocaine Pf 2% Vial) 5 ml STK-MED ONCE .ROUTE ; Start 06/20/18 at 07:43; Stop 06/20/18 at 07:44; Status DC Active Scripts Active Reported Meloxicam 7.5 Mg Tablet 1 Tab PO DAILY Fish Oil 1,000 Mg Capsule (Debord-3 Fatty Acids/Fish Oil) 1 Each Capsule 1 Each PO BID Hydrochlorothiazide 12.5 Mg Capsule 12.5 Mg PO DAILY Lisinopril 10 Mg Tablet 1 Tab PO DAILY16 Lisinopril 20 Mg Tablet 1 Tab PO DAILY Metoprolol Tartrate 25 Mg Tablet 1 Tab PO BID Gabapentin (Gabapentin) 300 Mg Capsule 300 Mg PO TID Atorvastatin Calcium 20 Mg Tablet 1 Tab PO DAILY Amlodipine Besylate 5 Mg Tablet 5 Mg PO DAILY Vitals/I & O Vital Sign - Last 24 Hours 06/19/18 06/19/18 06/19/18 06/19/18 10:03 11:00 14:33 14:33 Temp 98.9 98.9 Pulse 60 100 100 100 Resp 18 B/P (MAP) 138/73 150/81 (104) 150/81 150/81 Pulse Ox 97 O2 Delivery Room Air 06/19/18 06/19/18 06/19/18 06/19/18 15:00 17:20 19:00 20:00 Temp 98.3 98.2 98.3 98.2 Pulse 54 54 62 Resp 18 16 B/P (MAP) 186/60 (102) 186/60 114/72 (86) Pulse Ox 97 94 O2 Delivery Room Air Room Air Room Air 06/19/18 06/19/18 06/19/18 06/19/18 20:45 20:46 21:45 23:00 Temp 97.7 97.7 Pulse 62 51 Resp 14 B/P (MAP) 114/72 112/75 (87) Pulse Ox 95 O2 Delivery Room Air Room Air Room Air 06/20/18 06/20/18 03:00 07:05 Temp 97.7 99.0 97.7 99.0 Pulse 51 62 Resp 16 15 B/P (MAP) 111/63 (79) 140/72 Pulse Ox 96 97 O2 Delivery Room Air Room Air Intake and Output 06/19/18 06/19/18 06/20/18 14:59 22:59 06:59 Intake Total 250 ml 175 ml 1902 ml Output Total 300 ml 350 ml Balance 250 ml -125 ml 1552 ml CHUY JHA MD Jun 20, 2018 08:06
[2018-06-20] MEDS ORDERED: ETOMIDATE 20 MG/10 ML VIAL. IV ONE (08:15)
[2018-06-20] MEDS: GABAPENTIN 300 MG CAPSULE. PO SCH ×3 (09:00→20:38)
[2018-06-20] MEDS: LISINOPRIL 20 MG TABLET PO SCH (09:00)
[2018-06-20] MEDS: DOCUSATE SODIUM 100 MG CAPSULE. PO SCH ×2 (09:00→20:38)
[2018-06-20] MEDS: amLODIPine BESYLATE 5 MG TABLET PO SCH (09:00)
[2018-06-20] MEDS: METOPROLOL TART IMMED RELEASE 25 MG TABLET. PO SCH ×2 (09:00→20:39)
[2018-06-20] MEDS: hydroCHLOROthiazide 12.5 MG CAPSULE PO SCH (09:00)
[2018-06-20] MEDS ORDERED: DEXAMETHASONE SOD PHOS 20 MG/5 ML VIAL. ONE (09:12)
[2018-06-20] MEDS ORDERED: DESFLURANE > 120 MINUTES IH ONE (09:12)
[2018-06-20] MEDS ORDERED: PHENYLEPHRINE 10 MG/ML VIAL. ONE (09:12)
[2018-06-20] MEDS ORDERED: ONDANSETRON PF 4 MG/2 ML VIAL. ONE (09:42)
[2018-06-20] MEDS: POTASSIUM CL 20MEQ D5-0.45NACL 1,000 ML IV SCH ×2 (09:47→23:07)
--- NOTE | 2018-06-20 10:06 | NUR ---
SW following. Discussed with RN, pt having surgery today. PT/OT to assess pt after surgery. SW will continue to follow for discharge planning.
--- NOTE | 2018-06-20 13:27 | OP ---
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 OPERATION PERFORMED: Left costotransversectomy approach with a partial corpectomy and discectomy, T10-T11 and removal of epidural herniated disc, T10-T11 and decompression of the spinal cord. The operation was done with EMG monitoring, SSEP monitoring, motor evoked potentials, fluoroscopy, BrainLAB guidance, microdissection. SURGEON: Miah Hernandez M.D. BUSINESS [employer]UT[employer] CONSULTANT: LIA Foreman assisted with the surgery. She assisted with the exposure, the microdecompression as well as the closure. OPERATIVE INDICATIONS: The patient is a pleasant 67-year-old man who is brought in with problems with weakness in his lower extremities. He had a number of issues with regard to his spine, which included severe lumbar spinal stenosis primarily at L3-L4 as well as severe cervical stenosis at C5-C6, primarily. In the thoracic region at T10-T11, there was a large left-sided disc herniation with his spinal cord pushed from left to right and although this was considered moderate stenosis on the myelogram, my feeling was that this most closely supported his physical findings of increased reflexes in the sensory level in this location and I recommended a thoracic costotransversectomy approach, discectomy and removal of the disc to see if this would help him. There were issues based on his overall medical condition to clear him safely for surgery, but this was accomplished and I spoke with him this morning and discussed the surgery. He understands the surgery and risks and is ready to move forward. DESCRIPTION OF PROCEDURE: Following general endotracheal anesthesia, the patient was positioned prone on the Ivan table. Thoracolumbar region was prepped and draped in standard fashion. ANDREWS hose and AV impulse boots were applied for DVT prophylaxis. Monitoring was established. Ancef 2 grams was given less than 1 hour prior to the initiation of the surgery. Fluoroscopy was brought in. I counted and placed the BrainLAB star at T9 spinous process and then placed markers and confirmed my position at T10-T11. During this time using the BrainLAB system, the patient's BrainLAB system was initialized and the scans were matched without difficulty. I then dissected down skin and subcutaneous tissue, reflected the parathoracic muscles to the left centered at T10-T11 and placed a Conde retractor. I brought in the microscope and the remainder of the surgery was done with the microscope. Using microscopic technique, I burred down the facet and carried down medial aspect of the rib and then more medially. I visualized and decompressed the left T10 nerve root as it rounded the pedicle of T10 and I preserved it and then working medially, I drilled down into the disc space and then along the very far lateral left side of the canal, I did trim some more of this material on left side of the canal and then drilled down into the disc space. I had the curettes, which I entered in the disc space and I did remove a portion of the body of T10 and T11 superiorly and inferiorly to this exposure from the left. I used a down pushing curette and pushed disc material down into this space after I worked and created room and began to decompress the region. As I worked medially, positioned lateral to the dura, I opened some lateral ligament and there was disc beneath this medially and began to tease back multiple disc fragments. The monitoring including SSEP and motor evoked potentials began to improve at this point. I continued my work and enlarged my exposure gradually as I removed more and more disc material. The monitoring continued to improve. The dura moved laterally and was well visualized. I did work beneath the dura and I assured myself that there were no retained fragments. I was very pleased. I irrigated copiously. I did use small amounts of bone wax as well as bipolar cautery for hemostasis. I then gently removed my retractors, obtained hemostasis in the muscle, closed the fascia, closed the subcutaneous tissue and the skin was closed with a subcuticular stitch. The operation went very well, I was quite pleased with the surgery. MIAH HERNANDEZ MD DR: THUY/kaye JOB#: [id number] / [id number] PEPE
--- NOTE | 2018-06-20 14:00 | NUR ---
This nurse taking over for care of pt. Report obtained from MARIA TERESA Pozo and MARIA TERESA Astorga. This nurse to continue care along with MARIA TERESA Astorga.
[2018-06-20] MEDS: DEXAMETHASONE SOD PHOS 4 MG/ML VIAL IV SCH ×2 (14:53→19:25)
--- NOTE | 2018-06-20 16:15 | NUR ---
PT arrived from PACU, A&O X4, VSS, mid back incision CDI, tolerating jello. Head to toe assessment done at this time along with 0800 interventions pt denies pain . Side rails X2, call light with in reach, family at bed side. Will continue to monitor.
[2018-06-20] MEDS: LISINOPRIL 10 MG TABLET PO SCH (16:35)
[2018-06-20] MEDS: HYDROcodone/APAP 5/325MG 1 TAB TABLET PO PRN (16:36)
--- NOTE | 2018-06-20 19:47 | NUR ---
I agree with the documentation and assessments by MARIA TERESA Gutiérrez.
[2018-06-20] MEDS: ATORVASTATIN CALCIUM 20 MG TABLET PO SCH (20:38)
[2018-06-21] MEDS: DEXAMETHASONE SOD PHOS 4 MG/ML VIAL IV SCH ×4 (01:07→17:45)
[2018-06-21 03:00] VITALS: BP 103/56
--- NOTE | 2018-06-21 06:09 | RAD ---
Bilateral lower extremity venous Doppler dated 06/21/2018. No comparison available. CLINICAL INDICATION: Thoracic discectomy leg spasms. FINDINGS: Grayscale, color-flow and spectral waveform analysis performed to include the deep venous system of both lower extremity. Normal compressibility, phasicity and augmentation of flow throughout. No filling defects are seen. IMPRESSION: No evidence of lower extremity deep vein thrombosis. Electronically signed by: Geoff Diaz MD (06/21/2018 6:06 AM) [facility]
[2018-06-21 07:00] VITALS: BP 119/72
[2018-06-21] MEDS: CYCLOBENZAPRINE 10 MG TABLET. PO PRN ×2 (07:09→16:18)
--- NOTE | 2018-06-21 08:47 | PDOC ---
PROGRESS NOTES Chief Complaint Chief Complaint A/P: Lower extremity numbness and weakness - likely compression at T10-T11 is responsible for his recent severe weakness and numbness. improving s/p surgery HTN - controlled CKD1 - Labs stable Complete heart block s/p PPM in situ - medtronic device, cardiology will interrogate. EKG shows a sinus rhythm. Echo ok VILLA on CPAP - has brought his device. FEN - cardiac diet, npo after midnight PPX - ambulatory, post op lovenox FULL CODE Inpatient for likely thoracic spinal compression, at least 2 midnights of inpatient care. 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 History of Present Illness History of Present Illness Mr Gomez is a pleasant 67-year-old man w/ PMHx VILLA on CPAP, HTN, 3rd degree heart block s/p PPM, CKD1 who reports over the last month increasing pain in his lower back along with feelings of electricity radiating into his lower extremities and weakness in his bilateral lower extremities. He reports that he has had problems with intermittent leg numbness in the past, beginning a month ago he developed much more significant pain in his lower back along with numbness and weakness in his lower extremities. His left leg is more involved than the right. Recently, because of leg weakness and falling he has started to use a walker. He rates his pain as a 4-5/10. He reports no bowel or bladder difficulties. He notes gabapentin gives him minimal relief. He has significant thoracic stenosis and has had myelogram outpatient 06/18/18 to evidence this. Slept ok with CPAP overnight. Has some constipation today and no SOB or CP. To OR 06/20 - Left costotransversectomy approach with a partial corpectomy and diskectomy, T10-T11 and removal of epidural herniated disk, T10-T11 and decompression of the spinal cord. Leg swelling this morning - negative for DVT Plan: Bowel regimen IS Rehab Vitals Vitals Vital Signs Date Time Temp Pulse Resp B/P (MAP) Pulse Ox O2 Delivery O2 Flow Rate FiO2 06/21/18 03:00 97.5 57 18 103/56 (72) 95 Room Air 97.5 06/20/18 14:00 2 Physical Exam General: Alert, Oriented X3, Cooperative, No acute distress Heart: Regular rate, Normal S1, Normal S2, No murmurs Abdomen: Normal bowel sounds, Soft, No tenderness, No hepatosplenomegaly, No masses Extremities: No clubbing, No cyanosis, No edema, Normal pulses, No tenderness/ swelling Skin: No rashes, No breakdown Comment Review of Relevant I have reviewed the following items khanh (where applicable) has been applied. Medications Current Medications Sodium Chloride (Normal Saline Flush) 3 ml PRN DAILY PRN IV AFTER MEDS AND BLOOD DRAWS; Start 06/18/18 at 18:00 Potassium Chloride/Dextrose/ Sod Cl 1,000 ml @ 75 mls/hr [id number] IV Last administered on 06/19/18 17:20; Start 06/18/18 at 17:47 Calcium Carbonate/ Glycine (Tums) 500 mg PRN Q3HRS PRN PO UPSET STOMACH; Start 06/18/18 at 18:00 Acetaminophen/ Hydrocodone Bitart (Lortab 5/325) 1 tab PRN Q4HRS PRN PO MILD PAIN Last administered on 06/20/18at 16:36; Start 06/18/18 at 18:00 Acetaminophen/ Hydrocodone Bitart (Lortab 5/325) 2 tab PRN Q4HRS PRN PO MODERATE PAIN, SEVERE PAIN; Start 06/18/18 at 18:00 Acetaminophen (Tylenol) 650 mg PRN Q6HRS PRN PO Headaches, Temp > 101.5F; Start 06/18/18 at 18:00 Docusate Sodium (Colace) 100 mg BID PO Last administered on 06/20/18at 20:38; Start 06/18/18 at 21:00 Magnesium Hydroxide (Milk Of Magnesia) 2,400 mg PRN Q12HR PRN PO CONSTIPATION; Start 06/18/18 at 18:00 Fentanyl Citrate (Fentanyl 2ml Vial) 25 mcg PRN Q2HR PRN IV MODERATE PAIN; Start 06/18/18 at 18:00 Cyclobenzaprine HCl (Flexeril) 10 mg PRN TID PRN PO MUSCLE SPASMS Last administered on 06/21/18at 07:09; Start 06/18/18 at 23:00 Amlodipine Besylate (Norvasc) 5 mg DAILY PO Last administered on 06/19/18at 14:33 ; Start 06/19/18 at 09:00 Atorvastatin Calcium (Lipitor) 20 mg HS PO Last administered on 06/20/18at 20:38 ; Start 06/19/18 at 21:00 Gabapentin (Neurontin) 300 mg TID PO Last administered on 06/20/18 20:38; Start 06/19/18 at 09:00 Lisinopril (Prinivil) 10 mg DAILY16 PO Last administered on 06/20/18 16:35; Start 06/19/18 at 16:00 Lisinopril (Prinivil) 20 mg DAILY PO Last administered on 06/19/18 14:33; Start 06/19/18 at 09:00 Metoprolol Tartrate (Lopressor) 25 mg BID PO Last administered on 06/20/18 20: 39; Start 06/19/18 at 09:00 Hydrochlorothiazide (Microzide) 12.5 mg DAILY PO Last administered on 06/19/18 14:32; Start 06/19/18 at 09:00 Bacitracin 80111 unit/Sodium Chloride 1,000 ml @ 1,000 mls/hr 1X ONCE IRR Last administered on 06/20/18at 10:03; Start 06/20/18 at 06:00; Stop 06/20/18 at 06: 59; Status DC Ondansetron HCl (Zofran) 4 mg PRN Q6HRS PRN IV NAUSEA/VOMITING; Start 06/20/18 at 07:00; Stop 06/21/18 at 06:59; Status DC Fentanyl Citrate (Fentanyl 2ml Vial) 25 mcg PRN Q5MIN PRN IV MILD PAIN; Start 06/20/18 at 07:00; Stop 06/21/18 at 06:59; Status DC Fentanyl Citrate (Fentanyl 2ml Vial) 50 mcg PRN Q5MIN PRN IV MODERATE TO SEVERE PAIN; Start 06/20/18 at 07:00; Stop 06/21/18 at 06:59; Status DC Morphine Sulfate (Morphine Sulfate) 1 mg PRN Q10MIN PRN IV SEVERE PAIN; Start 06/20/18 at 07:00; Stop 06/21/18 at 06:59; Status DC Ringer's Solution 1,000 ml @ 30 mls/hr Q24H IV ; Start 06/20/18 at 07:00; Stop 06/20/18 at 18:59; Status DC Lidocaine HCl (Xylocaine-Mpf 1% 2ml Vial) 2 ml PRN 1X PRN ID IV START; Start at 07:00; Stop 06/21/18 at 06:59; Status DC Hydromorphone HCl (Dilaudid) 0.5 mg PRN Q10MIN PRN IV SEV PAIN, Second choice; Start 06/20/18 at 07:00; Stop 06/21/18 at 06:59; Status DC Prochlorperazine Edisylate (Compazine) 5 mg PACU PRN PRN IV NAUSEA, MRX1; Start 06/20/18 at 07:00; Stop 06/21/18 at 06:59; Status DC Al Hydroxide/Mg Hydroxide (Mylanta Plus Xs) 30 ml PRN Q4HRS PRN PO HEARTBURN / GAS; Start 06/19/18 at 22:00; Status Cancel Gelatin (Gelfoam Size 100) 1 each STK-MED ONCE .ROUTE Last administered on 06/20at 10:03; Start 06/20/18 at 06:52; Stop 06/20/18 at 06:53; Status DC Bupivacaine HCl/ Epinephrine Bitart (Sensorcain-Mpf Epi 0.5%-1:640752) 30 ml STK -MED ONCE .ROUTE Last administered on 06/20/18at 10:03; Start 06/20/18 at 06:52; Stop 06/20/18 at 06:53; Status DC Ketorolac Tromethamine (Toradol For Or Only) 60 mg STK-MED ONCE .ROUTE Last administered on 06/20/18at 10:03; Start 06/20/18 at 06:52; Stop 06/20/18 at 06:53; Status DC Thrombin 20,000 unit STK-MED ONCE TP Last administered on 06/20/18at 10:03; Start 06/20/18 at 06:52; Stop 06/20/18 at 06:53; Status DC Propofol 20 ml @ As Directed STK-MED ONCE IV ; Start 06/20/18 at 07:42; Stop 06/20 at 07:43; Status DC Propofol 50 ml @ As Directed STK-MED ONCE IV ; Start 06/20/18 at 07:42; Stop 06/20 at 07:43; Status DC Fentanyl Citrate (Fentanyl 2ml Vial) 100 mcg STK-MED ONCE .ROUTE ; Start at 07:43; Stop 06/20/18 at 07:44; Status DC Succinylcholine Chloride (Anectine) 200 mg STK-MED ONCE .ROUTE ; Start 06/20/18 at 07:43; Stop 06/20/18 at 07:44; Status DC Rocuronium [place] (Zemuron) 50 mg STK-MED ONCE .ROUTE ; Start 06/20/18 at 07:43 ; Stop 06/20/18 at 07:44; Status DC Remifentanil HCl (Ultiva) 2 mg STK-MED ONCE IV ; Start 06/20/18 at 07:43; Stop at 07:44; Status DC Lidocaine HCl (Lidocaine Pf 2% Vial) 5 ml STK-MED ONCE .ROUTE ; Start 06/20/18 at 07:43; Stop 06/20/18 at 07:44; Status DC Cefazolin Sodium/ Dextrose 50 ml @ As Directed STK-MED ONCE IV ; Start 06/20/18 at 08:13; Stop 06/20/18 at 08:15; Status DC Etomidate (Amidate) 20 mg STK-MED ONCE IV ; Start 06/20/18 at 08:15; Stop at 08:17; Status DC Dexamethasone Sodium Phosphate (Decadron) 20 mg STK-MED ONCE .ROUTE ; Start 06/20 at 09:12; Stop 06/20/18 at 09:13; Status DC Phenylephrine HCl (David-Synephrine Inj) 10 mg STK-MED ONCE .ROUTE ; Start at 09:12; Stop 06/20/18 at 09:13; Status DC Desflurane (Suprane) 90 ml STK-MED ONCE IH ; Start 06/20/18 at 09:12; Stop at 09:13; Status DC Ephedrine Sulfate (Akovaz) 50 mg STK-MED ONCE .ROUTE ; Start 06/20/18 at 09:20; Stop 06/20/18 at 09:21; Status DC Ondansetron HCl (Zofran) 4 mg STK-MED ONCE .ROUTE ; Start 06/20/18 at 09:42; Stop 06/20/18 at 09:43; Status DC Propofol 50 ml @ As Directed STK-MED ONCE IV ; Start 06/20/18 at 10:43; Stop 06/20 at 10:44; Status DC Dexamethasone Sodium Phosphate (Decadron) 4 mg Q6HRS IV Last administered on 06/21/18at 06:12; Start 06/20/18 at 14:00 Active Scripts Active Reported Meloxicam 7.5 Mg Tablet 1 Tab PO DAILY Fish Oil 1,000 Mg Capsule ([place]-3 Fatty Acids/Fish Oil) 1 Each Capsule 1 Each PO BID Hydrochlorothiazide 12.5 Mg Capsule 12.5 Mg PO DAILY Lisinopril 10 Mg Tablet 1 Tab PO DAILY16 Lisinopril 20 Mg Tablet 1 Tab PO DAILY Metoprolol Tartrate 25 Mg Tablet 1 Tab PO BID Gabapentin (Gabapentin) 300 Mg Capsule 300 Mg PO TID Atorvastatin Calcium 20 Mg Tablet 1 Tab PO DAILY Amlodipine Besylate 5 Mg Tablet 5 Mg PO DAILY Vitals/I & O Vital Sign - Last 24 Hours 06/20/18 06/20/18 06/20/18 06/20/18 13:11 13:11 13:30 13:45 Temp 98.0 98.0 99.3 98.0 98.0 99.3 Pulse 92 102 104 Resp 16 19 12 B/P (MAP) 142/71 148/72 143/67 Pulse Ox 100 100 96 O2 Delivery Mask Simple Mask Simple Mask Room Air O2 Flow Rate 10 10 3 06/20/18 06/20/18 06/20/18 06/20/18 14:00 14:45 15:00 15:00 Temp 99.3 98.0 99.3 98.0 Pulse 102 107 106 Resp 21 18 18 B/P (MAP) 150/60 135/81 (99) 131/77 (95) Pulse Ox 96 97 96 O2 Delivery Room Air Room Air Mask Room Air Nasal Cannula O2 Flow Rate 2 06/20/18 06/20/18 06/20/18 06/20/18 15:15 15:30 15:45 16:15 Pulse 107 110 108 105 Resp 18 18 18 18 B/P (MAP) 138/72 (94) 146/76 (99) 136/75 (95) 123/69 (87) Pulse Ox 95 95 96 95 O2 Delivery Room Air Room Air Room Air Room Air 06/20/18 06/20/18 06/20/1806/20/19 16:35 16:36 16:45 17:32 Pulse 107 119 Resp 18 B/P (MAP) 138/72 139/75 (96) Pulse Ox 95 O2 Delivery Room Air Room Air Room Air 06/20/18 06/20/18 06/20/18 06/20/18 19:00 20:00 20:39 23:00 Temp 98.1 98.6 98.1 98.6 Pulse 107 87 71 Resp 18 18 B/P (MAP) 115/76 (89) 115/61 104/60 (75) Pulse Ox 96 95 O2 Delivery Room Air Room Air Room Air 06/21/18 03:00 Temp 97.5 97.5 Pulse 57 Resp 18 B/P (MAP) 103/56 (72) Pulse Ox 95 O2 Delivery Room Air Intake and Output 06/20/18 06/20/18 06/21/18 15:00 23:00 07:00 Intake Total 1900 ml 405 ml Output Total 265 ml 275 ml 400 ml Balance 1635 ml 130 ml -400 ml CHUY JHA MD Jun 21, 2018 08:47
[2018-06-21] MEDS: GABAPENTIN 300 MG CAPSULE. PO SCH ×3 (09:19→20:12)
[2018-06-21] MEDS: LISINOPRIL 10 MG TABLET PO SCH ×2 (09:19→15:47)
[2018-06-21] MEDS: METOPROLOL TART IMMED RELEASE 25 MG TABLET. PO SCH ×2 (09:20→20:13)
[2018-06-21] MEDS: amLODIPine BESYLATE 5 MG TABLET PO SCH (09:20)
[2018-06-21] MEDS: DOCUSATE SODIUM 100 MG CAPSULE. PO SCH ×2 (09:20→20:16)
[2018-06-21] MEDS: hydroCHLOROthiazide 12.5 MG CAPSULE PO SCH (09:20)
[2018-06-21] MEDS: LISINOPRIL 20 MG TABLET PO SCH (09:26)
--- NOTE | 2018-06-21 09:59 | PDOC ---
PROGRESS NOTES Subjective Subjective No new complaints. Objective Objective Vital Signs Date Time Temp Pulse Resp B/P (MAP) Pulse Ox O2 Delivery O2 Flow Rate FiO2 06/21/18 09:26 70 119/72 06/21/18 07:00 97.9 18 96 Room Air 97.9 06/20/18 14:00 2 Intake and Output 06/21/18 06:59 Intake Total 2305 ml Output Total 940 ml Balance 1365 ml Intake Oral 200 ml IV Total 2105 ml Output Urine Total 900 ml Estimated Blood Loss 40 ml Physical Exam Physical Exam He is alert,walking with roller walker with physical and occupational therapy with minimal assistance.He continues with lower extremity [id number] and ataxia. He is voiding well and passing gases and no back pain. Plan Plan of Care To continue physical and occupational therapy follow up and hopefully to rehab unit for a short stay to make him more confident with his mobility and self care at roller walker level,on Saturday if medically stable. Comment Review of Relevant I have reviewed the following items khanh (where applicable) has been applied. Medications Current Medications Sodium Chloride (Normal Saline Flush) 3 ml PRN DAILY PRN IV AFTER MEDS AND BLOOD DRAWS; Start 06/18/18 at 18:00 Potassium Chloride/Dextrose/ Sod Cl 1,000 ml @ 75 mls/hr [id number] IV Last administered on 06/19/18at 17:20; Start 06/18/18 at 17:47 Calcium Carbonate/ Glycine (Tums) 500 mg PRN Q3HRS PRN PO UPSET STOMACH; Start 06/18/18 at 18:00 Acetaminophen/ Hydrocodone Bitart (Lortab 5/325) 1 tab PRN Q4HRS PRN PO MILD PAIN Last administered on 06/20/18at 16:36; Start 06/18/18 at 18:00 Acetaminophen/ Hydrocodone Bitart (Lortab 5/325) 2 tab PRN Q4HRS PRN PO MODERATE PAIN, SEVERE PAIN; Start 06/18/18 at 18:00 Acetaminophen (Tylenol) 650 mg PRN Q6HRS PRN PO Headaches, Temp > 101.5F; Start 06/18/18 at 18:00 Docusate Sodium (Colace) 100 mg BID PO Last administered on 06/21/18at 09:20; Start 06/18/18 at 21:00 Magnesium Hydroxide (Milk Of Magnesia) 2,400 mg PRN Q12HR PRN PO CONSTIPATION; Start 06/18/18 at 18:00 Fentanyl Citrate (Fentanyl 2ml Vial) 25 mcg PRN Q2HR PRN IV MODERATE PAIN; Start 06/18/18 at 18:00 Cyclobenzaprine HCl (Flexeril) 10 mg PRN TID PRN PO MUSCLE SPASMS Last administered on 06/21/18 07:09; Start 06/18/18 at 23:00 Amlodipine Besylate (Norvasc) 5 mg DAILY PO Last administered on 06/21/18 09:20 ; Start 06/19/18 at 09:00 Atorvastatin Calcium (Lipitor) 20 mg HS PO Last administered on 06/20/18 20:38 ; Start 06/19/18 at 21:00 Gabapentin (Neurontin) 300 mg TID PO Last administered on 06/21/18 09:19; Start 06/19/18 at 09:00 Lisinopril (Prinivil) 10 mg DAILY16 PO Last administered on 06/20/18 16:35; Start 06/19/18 at 16:00 Lisinopril (Prinivil) 20 mg DAILY PO Last administered on 06/21/18 09:26; Start 06/19/18 at 09:00 Metoprolol Tartrate (Lopressor) 25 mg BID PO Last administered on 06/21/18 09: 20; Start 06/19/18 at 09:00 Hydrochlorothiazide (Microzide) 12.5 mg DAILY PO Last administered on 06/21/18 09:20; Start 06/19/18 at 09:00 Bacitracin 76153 unit/Sodium Chloride 1,000 ml @ 1,000 mls/hr 1X ONCE IRR Last administered on 06/20/18 10:03; Start 06/20/18 at 06:00; Stop 06/20/18 at 06: 59; Status DC Ondansetron HCl (Zofran) 4 mg PRN Q6HRS PRN IV NAUSEA/VOMITING; Start 06/20/18 at 07:00; Stop 06/21/18 at 06:59; Status DC Fentanyl Citrate (Fentanyl 2ml Vial) 25 mcg PRN Q5MIN PRN IV MILD PAIN; Start 06/20/18 at 07:00; Stop 06/21/18 at 06:59; Status DC Fentanyl Citrate (Fentanyl 2ml Vial) 50 mcg PRN Q5MIN PRN IV MODERATE TO SEVERE PAIN; Start 06/20/18 at 07:00; Stop 06/21/18 at 06:59; Status DC Morphine Sulfate (Morphine Sulfate) 1 mg PRN Q10MIN PRN IV SEVERE PAIN; Start 06/20/18 at 07:00; Stop 06/21/18 at 06:59; Status DC Ringer's Solution 1,000 ml @ 30 mls/hr Q24H IV ; Start 06/20/18 at 07:00; Stop 06/20/18 at 18:59; Status DC Lidocaine HCl (Xylocaine-Mpf 1% 2ml Vial) 2 ml PRN 1X PRN ID IV START; Start at 07:00; Stop 06/21/18 at 06:59; Status DC Hydromorphone HCl (Dilaudid) 0.5 mg PRN Q10MIN PRN IV SEV PAIN, Second choice; Start 06/20/18 at 07:00; Stop 06/21/18 at 06:59; Status DC Prochlorperazine Edisylate (Compazine) 5 mg PACU PRN PRN IV NAUSEA, MRX1; Start 06/20/18 at 07:00; Stop 06/21/18 at 06:59; Status DC Al Hydroxide/Mg Hydroxide (Mylanta Plus Xs) 30 ml PRN Q4HRS PRN PO HEARTBURN / GAS; Start 06/19/18 at 22:00; Status Cancel Gelatin (Gelfoam Size 100) 1 each STK-MED ONCE .ROUTE Last administered on 06/20at 10:03; Start 06/20/18 at 06:52; Stop 06/20/18 at 06:53; Status DC Bupivacaine HCl/ Epinephrine Bitart (Sensorcain-Mpf Epi 0.5%-1:063148) 30 ml STK -MED ONCE .ROUTE Last administered on 06/20/18at 10:03; Start 06/20/18 at 06:52; Stop 06/20/18 at 06:53; Status DC Ketorolac Tromethamine (Toradol For Or Only) 60 mg STK-MED ONCE .ROUTE Last administered on 06/20/18at 10:03; Start 06/20/18 at 06:52; Stop 06/20/18 at 06:53; Status DC Thrombin 20,000 unit STK-MED ONCE TP Last administered on 06/20/18at 10:03; Start 06/20/18 at 06:52; Stop 06/20/18 at 06:53; Status DC Propofol 20 ml @ As Directed STK-MED ONCE IV ; Start 06/20/18 at 07:42; Stop 06/20 at 07:43; Status DC Propofol 50 ml @ As Directed STK-MED ONCE IV ; Start 06/20/18 at 07:42; Stop 06/20 at 07:43; Status DC Fentanyl Citrate (Fentanyl 2ml Vial) 100 mcg STK-MED ONCE .ROUTE ; Start at 07:43; Stop 06/20/18 at 07:44; Status DC Succinylcholine Chloride (Anectine) 200 mg STK-MED ONCE .ROUTE ; Start 06/20/18 at 07:43; Stop 06/20/18 at 07:44; Status DC Rocuronium [place] (Zemuron) 50 mg STK-MED ONCE .ROUTE ; Start 06/20/18 at 07:43 ; Stop 06/20/18 at 07:44; Status DC Remifentanil HCl (Ultiva) 2 mg STK-MED ONCE IV ; Start 06/20/18 at 07:43; Stop at 07:44; Status DC Lidocaine HCl (Lidocaine Pf 2% Vial) 5 ml STK-MED ONCE .ROUTE ; Start 06/20/18 at 07:43; Stop 06/20/18 at 07:44; Status DC Cefazolin Sodium/ Dextrose 50 ml @ As Directed STK-MED ONCE IV ; Start 06/20/18 at 08:13; Stop 06/20/18 at 08:15; Status DC Etomidate (Amidate) 20 mg STK-MED ONCE IV ; Start 06/20/18 at 08:15; Stop at 08:17; Status DC Dexamethasone Sodium Phosphate (Decadron) 20 mg STK-MED ONCE .ROUTE ; Start 06/20 at 09:12; Stop 06/20/18 at 09:13; Status DC Phenylephrine HCl (David-Synephrine Inj) 10 mg STK-MED ONCE .ROUTE ; Start at 09:12; Stop 06/20/18 at 09:13; Status DC Desflurane (Suprane) 90 ml STK-MED ONCE IH ; Start 06/20/18 at 09:12; Stop at 09:13; Status DC Ephedrine Sulfate (Akovaz) 50 mg STK-MED ONCE .ROUTE ; Start 06/20/18 at 09:20; Stop 06/20/18 at 09:21; Status DC Ondansetron HCl (Zofran) 4 mg STK-MED ONCE .ROUTE ; Start 06/20/18 at 09:42; Stop 06/20/18 at 09:43; Status DC Propofol 50 ml @ As Directed STK-MED ONCE IV ; Start 06/20/18 at 10:43; Stop 06/20 at 10:44; Status DC Dexamethasone Sodium Phosphate (Decadron) 4 mg Q6HRS IV Last administered on 06/21/18at 06:12; Start 06/20/18 at 14:00 Active Scripts Active Reported Meloxicam 7.5 Mg Tablet 1 Tab PO DAILY Fish Oil 1,000 Mg Capsule ([place]-3 Fatty Acids/Fish Oil) 1 Each Capsule 1 Each PO BID Hydrochlorothiazide 12.5 Mg Capsule 12.5 Mg PO DAILY Lisinopril 10 Mg Tablet 1 Tab PO DAILY16 Lisinopril 20 Mg Tablet 1 Tab PO DAILY Metoprolol Tartrate 25 Mg Tablet 1 Tab PO BID Gabapentin (Gabapentin) 300 Mg Capsule 300 Mg PO TID Atorvastatin Calcium 20 Mg Tablet 1 Tab PO DAILY Amlodipine Besylate 5 Mg Tablet 5 Mg PO DAILY Vitals/I & O Vital Sign - Last 24 Hours 06/20/18 06/20/18 06/20/18 06/20/18 13:11 13:11 13:30 13:45 Temp 98.0 98.0 99.3 98.0 98.0 99.3 Pulse 92 102 104 Resp 16 19 12 B/P (MAP) 142/71 148/72 143/67 Pulse Ox 100 100 96 O2 Delivery Mask Simple Mask Simple Mask Room Air O2 Flow Rate 10 10 3 06/20/18 06/20/18 06/20/18 06/20/18 14:00 14:45 15:00 15:00 Temp 99.3 98.0 99.3 98.0 Pulse 102 107 106 Resp 21 18 18 B/P (MAP) 150/60 135/81 (99) 131/77 (95) Pulse Ox 96 97 96 O2 Delivery Room Air Room Air Mask Room Air Nasal Cannula O2 Flow Rate 2 06/20/18 06/20/18 06/20/18 06/20/18 15:15 15:30 15:45 16:15 Pulse 107 110 108 105 Resp 18 18 18 18 B/P (MAP) 138/72 (94) 146/76 (99) 136/75 (95) 123/69 (87) Pulse Ox 95 95 96 95 O2 Delivery Room Air Room Air Room Air Room Air 06/20/18 06/20/18 06/20/18 06/20/18 16:35 16:36 16:45 17:32 Pulse 107 119 Resp 18 B/P (MAP) 138/72 139/75 (96) Pulse Ox 95 O2 Delivery Room Air Room Air Room Air 06/20/18 06/20/18 06/20/18 06/20/18 19:00 20:00 20:39 23:00 Temp 98.1 98.6 98.1 98.6 Pulse 107 87 71 Resp 18 18 B/P (MAP) 115/76 (89) 115/61 104/60 (75) Pulse Ox 96 95 O2 Delivery Room Air Room Air Room Air 06/21/18 06/21/18 06/21/18 06/21/18 03:00 07:00 09:20 09:20 Temp 97.5 97.9 97.5 97.9 Pulse 57 70 70 70 Resp 18 18 B/P (MAP) 103/56 (72) 119/72 (88) 119/72 119/72 Pulse Ox 95 96 O2 Delivery Room Air Room Air 06/21/18 09:26 Pulse 70 B/P (MAP) 119/72 Intake and Output 06/20/18 06/20/18 06/21/18 14:59 22:59 06:59 Intake Total 1900 ml 405 ml Output Total 265 ml 275 ml 400 ml Balance 1635 ml 130 ml -400 ml ANA TREVINO MD Jun 21, 2018 09:59
[2018-06-21] MEDS: HYDROcodone/APAP 5/325MG 1 TAB TABLET PO PRN ×2 (10:13→20:15)
[2018-06-21] MEDS ORDERED: POLYETHYLENE GLYCOL 3350 17 GM PACKET. PO PRN (10:45)
[2018-06-21 11:00] VITALS: BP 117/62
--- NOTE | 2018-06-21 11:24 | NUR ---
Patient was bladder scanned post void per Dr. Donohue by Destiny MUNOZ. Bladder scan showed 0ml post void.
[2018-06-21] MEDS: POTASSIUM CL 20MEQ D5-0.45NACL 1,000 ML IV SCH (12:27)
--- NOTE | 2018-06-21 13:25 | PDOC ---
PROGRESS NOTES Subjective Subjective Patient was up walking with a walker. Moderate back pain. Objective Objective Vital Signs Date Time Temp Pulse Resp B/P (MAP) Pulse Ox O2 Delivery O2 Flow Rate FiO2 06/21/18 11:19 16 Room Air 06/21/18 11:00 98.2 65 117/62 (80) 94 98.2 06/20/18 14:00 2 Intake and Output 06/21/18 06:59 Intake Total 2305 ml Output Total 940 ml Balance 1365 ml Intake Oral 200 ml IV Total 2105 ml Output Urine Total 900 ml Estimated Blood Loss 40 ml Physical Exam Physical Exam Incision flat. Minimal drainage. LE strength 4+ to 5/5. Voiding normally Assessment Assessment LE doppler was negative Plan Plan of Care PT is recommending Rehab at discharge. is following. Patient clearly improved. Comment Review of Relevant I have reviewed the following items khanh (where applicable) has been applied. Medications Current Medications Sodium Chloride (Normal Saline Flush) 3 ml PRN DAILY PRN IV AFTER MEDS AND BLOOD DRAWS; Start 06/18/18 at 18:00 Potassium Chloride/Dextrose/ Sod Cl 1,000 ml @ 75 mls/hr [id number] IV Last administered on 06/19/18at 17:20; Start 06/18/18 at 17:47 Calcium Carbonate/ Glycine (Tums) 500 mg PRN Q3HRS PRN PO UPSET STOMACH; Start 06/18/18 at 18:00 Acetaminophen/ Hydrocodone Bitart (Lortab 5/325) 1 tab PRN Q4HRS PRN PO MILD PAIN Last administered on 06/21/18at 10:13; Start 06/18/18 at 18:00 Acetaminophen/ Hydrocodone Bitart (Lortab 5/325) 2 tab PRN Q4HRS PRN PO MODERATE PAIN, SEVERE PAIN; Start 06/18/18 at 18:00 Acetaminophen (Tylenol) 650 mg PRN Q6HRS PRN PO Headaches, Temp > 101.5F; Start 06/18/18 at 18:00 Docusate Sodium (Colace) 100 mg BID PO Last administered on 06/21/18at 09:20; Start 06/18/18 at 21:00 Magnesium Hydroxide (Milk Of Magnesia) 2,400 mg PRN Q12HR PRN PO CONSTIPATION Last administered on 06/21/18at 10:09; Start 06/18/18 at 18:00 Fentanyl Citrate (Fentanyl 2ml Vial) 25 mcg PRN Q2HR PRN IV MODERATE PAIN; Start 06/18/18 at 18:00 Cyclobenzaprine HCl (Flexeril) 10 mg PRN TID PRN PO MUSCLE SPASMS Last administered on 06/21/18 07:09; Start 06/18/18 at 23:00 Amlodipine Besylate (Norvasc) 5 mg DAILY PO Last administered on 06/21/18 09:20 ; Start 06/19/18 at 09:00 Atorvastatin Calcium (Lipitor) 20 mg HS PO Last administered on 06/20/18 20:38 ; Start 06/19/18 at 21:00 Gabapentin (Neurontin) 300 mg TID PO Last administered on 06/21/18 09:19; Start 06/19/18 at 09:00 Lisinopril (Prinivil) 10 mg DAILY16 PO Last administered on 06/20/18 16:35; Start 06/19/18 at 16:00 Lisinopril (Prinivil) 20 mg DAILY PO Last administered on 06/21/18 09:26; Start 06/19/18 at 09:00 Metoprolol Tartrate (Lopressor) 25 mg BID PO Last administered on 06/21/18 09: 20; Start 06/19/18 at 09:00 Hydrochlorothiazide (Microzide) 12.5 mg DAILY PO Last administered on 06/21/18 09:20; Start 06/19/18 at 09:00 Bacitracin 27757 unit/Sodium Chloride 1,000 ml @ 1,000 mls/hr 1X ONCE IRR Last administered on 06/20/18at 10:03; Start 06/20/18 at 06:00; Stop 06/20/18 at 06: 59; Status DC Ondansetron HCl (Zofran) 4 mg PRN Q6HRS PRN IV NAUSEA/VOMITING; Start 06/20/18 at 07:00; Stop 06/21/18 at 06:59; Status DC Fentanyl Citrate (Fentanyl 2ml Vial) 25 mcg PRN Q5MIN PRN IV MILD PAIN; Start 06/20/18 at 07:00; Stop 06/21/18 at 06:59; Status DC Fentanyl Citrate (Fentanyl 2ml Vial) 50 mcg PRN Q5MIN PRN IV MODERATE TO SEVERE PAIN; Start 06/20/18 at 07:00; Stop 06/21/18 at 06:59; Status DC Morphine Sulfate (Morphine Sulfate) 1 mg PRN Q10MIN PRN IV SEVERE PAIN; Start 06/20/18 at 07:00; Stop 06/21/18 at 06:59; Status DC Ringer's Solution 1,000 ml @ 30 mls/hr Q24H IV ; Start 06/20/18 at 07:00; Stop 06/20/18 at 18:59; Status DC Lidocaine HCl (Xylocaine-Mpf 1% 2ml Vial) 2 ml PRN 1X PRN ID IV START; Start at 07:00; Stop 06/21/18 at 06:59; Status DC Hydromorphone HCl (Dilaudid) 0.5 mg PRN Q10MIN PRN IV SEV PAIN, Second choice; Start 06/20/18 at 07:00; Stop 06/21/18 at 06:59; Status DC Prochlorperazine Edisylate (Compazine) 5 mg PACU PRN PRN IV NAUSEA, MRX1; Start 06/20/18 at 07:00; Stop 06/21/18 at 06:59; Status DC Al Hydroxide/Mg Hydroxide (Mylanta Plus Xs) 30 ml PRN Q4HRS PRN PO HEARTBURN / GAS; Start 06/19/18 at 22:00; Status Cancel Gelatin (Gelfoam Size 100) 1 each STK-MED ONCE .ROUTE Last administered on 06/20at 10:03; Start 06/20/18 at 06:52; Stop 06/20/18 at 06:53; Status DC Bupivacaine HCl/ Epinephrine Bitart (Sensorcain-Mpf Epi 0.5%-1:255297) 30 ml STK -MED ONCE .ROUTE Last administered on 06/20/18at 10:03; Start 06/20/18 at 06:52; Stop 06/20/18 at 06:53; Status DC Ketorolac Tromethamine (Toradol For Or Only) 60 mg STK-MED ONCE .ROUTE Last administered on 06/20/18at 10:03; Start 06/20/18 at 06:52; Stop 06/20/18 at 06:53; Status DC Thrombin 20,000 unit STK-MED ONCE TP Last administered on 06/20/18at 10:03; Start 06/20/18 at 06:52; Stop 06/20/18 at 06:53; Status DC Propofol 20 ml @ As Directed STK-MED ONCE IV ; Start 06/20/18 at 07:42; Stop 06/20 at 07:43; Status DC Propofol 50 ml @ As Directed STK-MED ONCE IV ; Start 06/20/18 at 07:42; Stop 06/20 at 07:43; Status DC Fentanyl Citrate (Fentanyl 2ml Vial) 100 mcg STK-MED ONCE .ROUTE ; Start at 07:43; Stop 06/20/18 at 07:44; Status DC Succinylcholine Chloride (Anectine) 200 mg STK-MED ONCE .ROUTE ; Start 06/20/18 at 07:43; Stop 06/20/18 at 07:44; Status DC Rocuronium [place] (Zemuron) 50 mg STK-MED ONCE .ROUTE ; Start 06/20/18 at 07:43 ; Stop 06/20/18 at 07:44; Status DC Remifentanil HCl (Ultiva) 2 mg STK-MED ONCE IV ; Start 06/20/18 at 07:43; Stop at 07:44; Status DC Lidocaine HCl (Lidocaine Pf 2% Vial) 5 ml STK-MED ONCE .ROUTE ; Start 06/20/18 at 07:43; Stop 06/20/18 at 07:44; Status DC Cefazolin Sodium/ Dextrose 50 ml @ As Directed STK-MED ONCE IV ; Start 06/20/18 at 08:13; Stop 06/20/18 at 08:15; Status DC Etomidate (Amidate) 20 mg STK-MED ONCE IV ; Start 06/20/18 at 08:15; Stop at 08:17; Status DC Dexamethasone Sodium Phosphate (Decadron) 20 mg STK-MED ONCE .ROUTE ; Start 06/20 at 09:12; Stop 06/20/18 at 09:13; Status DC Phenylephrine HCl (David-Synephrine Inj) 10 mg STK-MED ONCE .ROUTE ; Start at 09:12; Stop 06/20/18 at 09:13; Status DC Desflurane (Suprane) 90 ml STK-MED ONCE IH ; Start 06/20/18 at 09:12; Stop at 09:13; Status DC Ephedrine Sulfate (Akovaz) 50 mg STK-MED ONCE .ROUTE ; Start 06/20/18 at 09:20; Stop 06/20/18 at 09:21; Status DC Ondansetron HCl (Zofran) 4 mg STK-MED ONCE .ROUTE ; Start 06/20/18 at 09:42; Stop 06/20/18 at 09:43; Status DC Propofol 50 ml @ As Directed STK-MED ONCE IV ; Start 06/20/18 at 10:43; Stop 06/20 at 10:44; Status DC Dexamethasone Sodium Phosphate (Decadron) 4 mg Q6HRS IV Last administered on 06/21/18at 12:00; Start 06/20/18 at 14:00 Polyethylene Glycol (miraLAX PACKET) 17 gm PRN BID PRN PO CONSTIPATION (2nd Choice); Start 06/21/18 at 10:45 Active Scripts Active Reported Meloxicam 7.5 Mg Tablet 1 Tab PO DAILY Fish Oil 1,000 Mg Capsule ([place]-3 Fatty Acids/Fish Oil) 1 Each Capsule 1 Each PO BID Hydrochlorothiazide 12.5 Mg Capsule 12.5 Mg PO DAILY Lisinopril 10 Mg Tablet 1 Tab PO DAILY16 Lisinopril 20 Mg Tablet 1 Tab PO DAILY Metoprolol Tartrate 25 Mg Tablet 1 Tab PO BID Gabapentin (Gabapentin) 300 Mg Capsule 300 Mg PO TID Atorvastatin Calcium 20 Mg Tablet 1 Tab PO DAILY Amlodipine Besylate 5 Mg Tablet 5 Mg PO DAILY Vitals/I & O Vital Sign - Last 24 Hours 06/20/18 06/20/18 06/20/18 06/20/18 13:30 13:45 14:00 14:45 Temp 98.0 99.3 99.3 98.0 98.0 99.3 99.3 98.0 Pulse 102 104 102 107 Resp 19 12 21 18 B/P (MAP) 148/72 143/67 150/60 135/81 (99) Pulse Ox 100 96 96 97 O2 Delivery Simple Mask Room Air Room Air Room Air Nasal Cannula O2 Flow Rate 3 2 06/20/18 06/20/18 06/20/18 06/20/18 15:00 15:00 15:15 15:30 Pulse 106 107 110 Resp 18 18 18 B/P (MAP) 131/77 (95) 138/72 (94) 146/76 (99) Pulse Ox 96 95 95 O2 Delivery Mask Room Air Room Air Room Air 06/20/18 06/20/18 06/20/18 06/20/18 15:45 16:15 16:35 16:36 Pulse 108 105 107 Resp 18 18 B/P (MAP) 136/75 (95) 123/69 (87) 138/72 Pulse Ox 96 95 O2 Delivery Room Air Room Air Room Air 06/20/18 06/20/18 06/20/18 06/20/18 16:45 19:00 20:00 20:39 Temp 98.1 98.1 Pulse 119 107 87 Resp 18 18 B/P (MAP) 139/75 (96) 115/76 (89) 115/61 Pulse Ox 95 96 O2 Delivery Room Air Room Air Room Air 06/20/18 06/21/18 06/21/18 06/21/18 23:00 03:00 07:00 08:00 Temp 98.6 97.5 97.9 98.6 97.5 97.9 Pulse 71 57 70 Resp 18 18 18 B/P (MAP) 104/60 (75) 103/56 (72) 119/72 (88) Pulse Ox 95 95 96 O2 Delivery Room Air Room Air Room Air Room Air 06/21/18 06/21/18 06/21/18 06/21/18 09:20 09:20 09:26 10:13 Pulse 70 70 70 Resp 16 B/P (MAP) 119/72 119/72 119/72 O2 Delivery Room Air 06/21/18 06/21/18 11:00 11:19 Temp 98.2 98.2 Pulse 65 Resp 18 16 B/P (MAP) 117/62 (80) Pulse Ox 94 O2 Delivery Room Air Room Air Intake and Output 06/20/18 06/20/18 06/21/18 14:59 22:59 06:59 Intake Total 1900 ml 405 ml Output Total 265 ml 275 ml 400 ml Balance 1635 ml 130 ml -400 ml MICHEAL HERNANDEZ MD Jun 21, 2018 13:25
--- NOTE | 2018-06-21 13:27 | NUR ---
SW consulted for rehab options. Chart reviewed and discussed with Physician. PT/OT recommends acute rehab. Discussed with pt and in room regarding options ([facility] acute rehab and [facility] Pt and chose [facility]. SW discussed insurance benefit and rehab. Referral faxed to [facility]. Pt admission and acceptance pending. Will continue to follow.
[2018-06-21 15:00] VITALS: BP 122/52
--- NOTE | 2018-06-21 15:02 | CONS ---
DATE OF CONSULTATION: 06/20/2018 ATTENDING PHYSICIAN: Miah Cole MD. The patient was seen at the request of Dr. Cole for rehab evaluation. HISTORY OF PRESENT ILLNESS: This is a 67-year-old male patient who was admitted on 06/18/2018 with lower extremity weakness with increasing back pain and also feeling of electricity radiating to his lower extremities and weakness in his lower extremities going on for about a month or so without any specific injury. He had intermittent leg numbness in the past. His left leg is more involved than the right side. He has been taking gabapentin. He apparently had falls and because of his leg weakness, he has to use a roller walker to get around. He rates his pain on a scale of 0-10 around 4-5. No apparent trouble with his bowel or bladder control. PAST MEDICAL HISTORY: Significant for cardiac arrhythmia, had permanent pacemaker placed, also renal disease. ALLERGIES: The patient is not known allergic to any medication. SOCIAL HISTORY: He lives with his family in [facility], had half step to enter the house plus basement and upstairs. There is a bathroom in the main level. The patient admits less pain in his back since he had thoracic spine surgery done this morning. 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 The patient has been passing gasses and urinating postop. PHYSICAL EXAMINATION: Today revealed a middle-aged male. He is alert, oriented to time, place, person and circumstance and follows commands appropriately, moves all 4 extremities voluntarily where he had 5/5 grade muscle strength and deep tendon reflexes are 1-2+ and symmetrical in the upper extremities, exaggerated at left knee, absent at right knee and both ankles. He had equal perception of touch and pinprick sensation bilaterally. He had dressing to his thoracic spine area. Other than that, his skin is intact. Plantar reflex is flexor bilaterally. He is independent with bed mobility and transfers. Once up, he walked for a few feet with roller walker. He had ataxic gait. He had equal perception of touch and pinprick sensation in both upper and lower extremities. ASSESSMENT: 1. A middle-aged male status post left costotransversectomy approach with partial corpectomy and diskectomy, T10-T11 and removal of epidural herniated disk and decompression of spinal cord done on 06/20/2018, for treatment of herniated thoracic disk at T10-T11 with thoracic myelopathy. 2. Clinical evidence of peripheral neuropathy, ataxia with mobility and self-care limitations. Also, the patient with renal disease, cardiac arrhythmia, status post permanent pacemaker placement, also radiological evidence of cervical and lumbar spinal stenosis. Also with known hypertension, chronic lower back pain, chronic renal insufficiency, family history of hypercholesterolemia and hypertension. RECOMMENDATIONS: Agree with the plan for physical therapy and occupational therapy to screen him for transfer to inpatient rehab unit to help with his mobility and self-care limitations. Dr. Cole, I appreciate asking me to participate in the care of this interesting patient. I will be glad to follow him with you as needed for his rehabilitation. ANA TREVINO MD DR: MARITA/kaye JOB#: [id number] / [id number]
[2018-06-21 19:00] VITALS: BP 127/57
[2018-06-21] MEDS: ATORVASTATIN CALCIUM 20 MG TABLET PO SCH (20:12)
[2018-06-21 23:00] VITALS: BP 127/69
[2018-06-22] MEDS: POTASSIUM CL 20MEQ D5-0.45NACL 1,000 ML IV SCH (01:47)
[2018-06-22 03:00] VITALS: BP 120/69
[2018-06-22] MEDS: DEXAMETHASONE SOD PHOS 4 MG/ML VIAL IV SCH ×4 (06:00→17:42)
[2018-06-22 07:00] VITALS: BP 134/59
--- NOTE | 2018-06-22 07:46 | PDOC ---
PROGRESS NOTES Chief Complaint Chief Complaint A/P: Lower extremity numbness and weakness - likely compression at T10-T11 is responsible for his recent severe weakness and numbness. improving s/p surgery HTN - controlled CKD1 - Labs stable Complete heart block s/p PPM in situ - medtronic device, cardiology will interrogate. EKG shows a sinus rhythm. Echo ok VILLA on CPAP - has brought his device. FEN - cardiac diet, npo after midnight PPX - ambulatory, post op lovenox FULL CODE Inpatient for likely thoracic spinal compression, at least 2 midnights of inpatient care. 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 History of Present Illness History of Present Illness Mr Gomez is a pleasant 67-year-old man w/ PMHx VILLA on CPAP, HTN, 3rd degree heart block s/p PPM, CKD1 who reports over the last month increasing pain in his lower back along with feelings of electricity radiating into his lower extremities and weakness in his bilateral lower extremities. He reports that he has had problems with intermittent leg numbness in the past, beginning a month ago he developed much more significant pain in his lower back along with numbness and weakness in his lower extremities. His left leg is more involved than the right. Recently, because of leg weakness and falling he has started to use a walker. He rates his pain as a 4-5/10. He reports no bowel or bladder difficulties. He notes gabapentin gives him minimal relief. He has significant thoracic stenosis and has had myelogram outpatient 06/18/18 to evidence this. To OR 06/20 - Left costotransversectomy approach with a partial corpectomy and diskectomy, T10-T11 and removal of epidural herniated disk, T10-T11 and decompression of the spinal cord. 06/21: Leg swelling this morning - negative for DVT Slept ok with CPAP overnight. Has some constipation today and no SOB or CP. Feels stronger and better sensation bilateral lower extremities, still a little like he is in sand on his right foot Plan: Bowel regimen IS Rehab on D/C Vitals Vitals Vital Signs Date Time Temp Pulse Resp B/P (MAP) Pulse Ox O2 Delivery O2 Flow Rate FiO2 06/22/18 03:00 97.6 55 18 120/69 (86) 96 Room Air 97.6 Physical Exam General: Alert, Oriented X3, Cooperative, No acute distress Heart: Regular rate, Normal S1, Normal S2, No murmurs Abdomen: Normal bowel sounds, Soft, No tenderness, No hepatosplenomegaly, No masses Extremities: No clubbing, No cyanosis, No edema, Normal pulses, No tenderness/ swelling Skin: No rashes, No breakdown Comment Review of Relevant I have reviewed the following items khanh (where applicable) has been applied. Medications Current Medications Sodium Chloride (Normal Saline Flush) 3 ml PRN DAILY PRN IV AFTER MEDS AND BLOOD DRAWS; Start 06/18/18 at 18:00 Potassium Chloride/Dextrose/ Sod Cl 1,000 ml @ 75 mls/hr [id number] IV Last administered on 06/19/18at 17:20; Start 06/18/18 at 17:47; Stop 06/22/18 at 06:45; Status DC Calcium Carbonate/ Glycine (Tums) 500 mg PRN Q3HRS PRN PO UPSET STOMACH; Start 06/18/18 at 18:00 Acetaminophen/ Hydrocodone Bitart (Lortab 5/325) 1 tab PRN Q4HRS PRN PO MILD PAIN Last administered on 06/21/18 20:15; Start 06/18/18 at 18:00 Acetaminophen/ Hydrocodone Bitart (Lortab 5/325) 2 tab PRN Q4HRS PRN PO MODERATE PAIN, SEVERE PAIN; Start 06/18/18 at 18:00 Acetaminophen (Tylenol) 650 mg PRN Q6HRS PRN PO Headaches, Temp > 101.5F; Start 06/18/18 at 18:00 Docusate Sodium (Colace) 100 mg BID PO Last administered on 06/21/18at 20:16; Start 06/18/18 at 21:00 Magnesium Hydroxide (Milk Of Magnesia) 2,400 mg PRN Q12HR PRN PO CONSTIPATION Last administered on 06/21/18at 10:09; Start 06/18/18 at 18:00 Fentanyl Citrate (Fentanyl 2ml Vial) 25 mcg PRN Q2HR PRN IV MODERATE PAIN; Start 06/18/18 at 18:00 Cyclobenzaprine HCl (Flexeril) 10 mg PRN TID PRN PO MUSCLE SPASMS Last administered on 06/21/18at 16:18; Start 06/18/18 at 23:00 Amlodipine Besylate (Norvasc) 5 mg DAILY PO Last administered on 06/21/18 09:20 ; Start 06/19/18 at 09:00 Atorvastatin Calcium (Lipitor) 20 mg HS PO Last administered on 06/21/18 20:12 ; Start 06/19/18 at 21:00 Gabapentin (Neurontin) 300 mg TID PO Last administered on 06/21/18 20:12; Start 06/19/18 at 09:00 Lisinopril (Prinivil) 10 mg DAILY16 PO Last administered on 06/21/18 15:47; Start 06/19/18 at 16:00 Lisinopril (Prinivil) 20 mg DAILY PO Last administered on 06/21/18 09:26; Start 06/19/18 at 09:00 Metoprolol Tartrate (Lopressor) 25 mg BID PO Last administered on 06/21/18 20: 13; Start 06/19/18 at 09:00 Hydrochlorothiazide (Microzide) 12.5 mg DAILY PO Last administered on 06/21/18 09:20; Start 06/19/18 at 09:00 Bacitracin 94095 unit/Sodium Chloride 1,000 ml @ 1,000 mls/hr 1X ONCE IRR Last administered on 06/20/18 10:03; Start 06/20/18 at 06:00; Stop 06/20/18 at 06: 59; Status DC Ondansetron HCl (Zofran) 4 mg PRN Q6HRS PRN IV NAUSEA/VOMITING; Start 06/20/18 at 07:00; Stop 06/21/18 at 06:59; Status DC Fentanyl Citrate (Fentanyl 2ml Vial) 25 mcg PRN Q5MIN PRN IV MILD PAIN; Start 06/20/18 at 07:00; Stop 06/21/18 at 06:59; Status DC Fentanyl Citrate (Fentanyl 2ml Vial) 50 mcg PRN Q5MIN PRN IV MODERATE TO SEVERE PAIN; Start 06/20/18 at 07:00; Stop 06/21/18 at 06:59; Status DC Morphine Sulfate (Morphine Sulfate) 1 mg PRN Q10MIN PRN IV SEVERE PAIN; Start 06/20/18 at 07:00; Stop 06/21/18 at 06:59; Status DC Ringer's Solution 1,000 ml @ 30 mls/hr Q24H IV ; Start 06/20/18 at 07:00; Stop 06/20/18 at 18:59; Status DC Lidocaine HCl (Xylocaine-Mpf 1% 2ml Vial) 2 ml PRN 1X PRN ID IV START; Start at 07:00; Stop 06/21/18 at 06:59; Status DC Hydromorphone HCl (Dilaudid) 0.5 mg PRN Q10MIN PRN IV SEV PAIN, Second choice; Start 06/20/18 at 07:00; Stop 06/21/18 at 06:59; Status DC Prochlorperazine Edisylate (Compazine) 5 mg PACU PRN PRN IV NAUSEA, MRX1; Start 06/20/18 at 07:00; Stop 06/21/18 at 06:59; Status DC Al Hydroxide/Mg Hydroxide (Mylanta Plus Xs) 30 ml PRN Q4HRS PRN PO HEARTBURN / GAS; Start 06/19/18 at 22:00; Status Cancel Gelatin (Gelfoam Size 100) 1 each STK-MED ONCE .ROUTE Last administered on 06/20at 10:03; Start 06/20/18 at 06:52; Stop 06/20/18 at 06:53; Status DC Bupivacaine HCl/ Epinephrine Bitart (Sensorcain-Mpf Epi 0.5%-1:221184) 30 ml STK -MED ONCE .ROUTE Last administered on 06/20/18at 10:03; Start 06/20/18 at 06:52; Stop 06/20/18 at 06:53; Status DC Ketorolac Tromethamine (Toradol For Or Only) 60 mg STK-MED ONCE .ROUTE Last administered on 06/20/18at 10:03; Start 06/20/18 at 06:52; Stop 06/20/18 at 06:53; Status DC Thrombin 20,000 unit STK-MED ONCE TP Last administered on 06/20/18at 10:03; Start 06/20/18 at 06:52; Stop 06/20/18 at 06:53; Status DC Propofol 20 ml @ As Directed STK-MED ONCE IV ; Start 06/20/18 at 07:42; Stop 06/20 at 07:43; Status DC Propofol 50 ml @ As Directed STK-MED ONCE IV ; Start 06/20/18 at 07:42; Stop 06/20 at 07:43; Status DC Fentanyl Citrate (Fentanyl 2ml Vial) 100 mcg STK-MED ONCE .ROUTE ; Start at 07:43; Stop 06/20/18 at 07:44; Status DC Succinylcholine Chloride (Anectine) 200 mg STK-MED ONCE .ROUTE ; Start 06/20/18 at 07:43; Stop 06/20/18 at 07:44; Status DC Rocuronium [place] (Zemuron) 50 mg STK-MED ONCE .ROUTE ; Start 06/20/18 at 07:43 ; Stop 06/20/18 at 07:44; Status DC Remifentanil HCl (Ultiva) 2 mg STK-MED ONCE IV ; Start 06/20/18 at 07:43; Stop at 07:44; Status DC Lidocaine HCl (Lidocaine Pf 2% Vial) 5 ml STK-MED ONCE .ROUTE ; Start 06/20/18 at 07:43; Stop 06/20/18 at 07:44; Status DC Cefazolin Sodium/ Dextrose 50 ml @ As Directed STK-MED ONCE IV ; Start 06/20/18 at 08:13; Stop 06/20/18 at 08:15; Status DC Etomidate (Amidate) 20 mg STK-MED ONCE IV ; Start 06/20/18 at 08:15; Stop at 08:17; Status DC Dexamethasone Sodium Phosphate (Decadron) 20 mg STK-MED ONCE .ROUTE ; Start 06/20 at 09:12; Stop 06/20/18 at 09:13; Status DC Phenylephrine HCl (David-Synephrine Inj) 10 mg STK-MED ONCE .ROUTE ; Start at 09:12; Stop 06/20/18 at 09:13; Status DC Desflurane (Suprane) 90 ml STK-MED ONCE IH ; Start 06/20/18 at 09:12; Stop at 09:13; Status DC Ephedrine Sulfate (Akovaz) 50 mg STK-MED ONCE .ROUTE ; Start 06/20/18 at 09:20; Stop 06/20/18 at 09:21; Status DC Ondansetron HCl (Zofran) 4 mg STK-MED ONCE .ROUTE ; Start 06/20/18 at 09:42; Stop 06/20/18 at 09:43; Status DC Propofol 50 ml @ As Directed STK-MED ONCE IV ; Start 06/20/18 at 10:43; Stop 06/20 at 10:44; Status DC Dexamethasone Sodium Phosphate (Decadron) 4 mg Q6HRS IV Last administered on 01/31at 06:00; Start 06/20/18 at 14:00 Polyethylene Glycol (miraLAX PACKET) 17 gm PRN BID PRN PO CONSTIPATION (2nd Choice); Start 06/21/18 at 10:45 Active Scripts Active Reported Meloxicam 7.5 Mg Tablet 1 Tab PO DAILY Fish Oil 1,000 Mg Capsule ([place]-3 Fatty Acids/Fish Oil) 1 Each Capsule 1 Each PO BID Hydrochlorothiazide 12.5 Mg Capsule 12.5 Mg PO DAILY Lisinopril 10 Mg Tablet 1 Tab PO DAILY16 Lisinopril 20 Mg Tablet 1 Tab PO DAILY Metoprolol Tartrate 25 Mg Tablet 1 Tab PO BID Gabapentin (Gabapentin) 300 Mg Capsule 300 Mg PO TID Atorvastatin Calcium 20 Mg Tablet 1 Tab PO DAILY Amlodipine Besylate 5 Mg Tablet 5 Mg PO DAILY Vitals/I & O Vital Sign - Last 24 Hours 06/21/18 06/21/18 06/21/18 06/21/18 08:00 09:20 09:20 09:26 Pulse 70 70 70 B/P (MAP) 119/72 119/72 119/72 O2 Delivery Room Air 06/21/18 06/21/18 06/21/18 06/21/18 10:13 11:00 15:00 15:47 Temp 98.2 98.2 Pulse 65 67 67 Resp 16 18 18 B/P (MAP) 117/62 (80) 122/52 (75) 122/52 Pulse Ox 94 96 O2 Delivery Room Air Room Air Room Air 06/21/18 06/21/18 06/21/18 06/21/18 19:00 20:00 20:13 20:15 Temp 98.4 98.4 Pulse 61 67 Resp 18 20 B/P (MAP) 127/57 (80) 122/52 Pulse Ox 93 96 O2 Delivery Room Air Room Air Room Air 06/21/18 06/21/18 06/22/18 21:15 23:00 03:00 Temp 97.0 97.6 97.0 97.6 Pulse 53 55 Resp 20 20 18 B/P (MAP) 127/69 (88) 120/69 (86) Pulse Ox 96 93 96 O2 Delivery Room Air Room Air Room Air Intake and Output 06/21/18 06/21/18 06/22/18 15:00 23:00 07:00 Intake Total 400 ml 400 ml Output Total 800 ml 850 ml Balance -400 ml -450 ml CHYU JHA MD Jun 22, 2018 07:46
[2018-06-22] MEDS: GABAPENTIN 300 MG CAPSULE. PO SCH ×3 (08:30→21:16)
[2018-06-22] MEDS: amLODIPine BESYLATE 5 MG TABLET PO SCH (08:30)
[2018-06-22] MEDS: LISINOPRIL 20 MG TABLET PO SCH (08:30)
[2018-06-22] MEDS: METOPROLOL TART IMMED RELEASE 25 MG TABLET. PO SCH ×2 (08:31→21:00)
[2018-06-22] MEDS: hydroCHLOROthiazide 12.5 MG CAPSULE PO SCH (08:31)
[2018-06-22] MEDS: DOCUSATE SODIUM 100 MG CAPSULE. PO SCH ×2 (08:31→21:16)
[2018-06-22] MEDS ORDERED: CYCL10TA2 PO (08:58)
[2018-06-22] MEDS ORDERED: POLY17PO28 PO (08:58)
[2018-06-22] MEDS ORDERED: MAGN400O7 PO (08:58)
[2018-06-22] MEDS ORDERED: HYDR-2761 PO (08:58)
[2018-06-22] MEDS ORDERED: DOCU-109 PO (08:58)
[2018-06-22] MEDS ORDERED: CALC200T23 PO (08:58)
[2018-06-22] MEDS ORDERED: ACET325T9 PO (08:58)
--- NOTE | 2018-06-22 09:01 | SNU/HH DC ---
DISCHARGE ORDERS DISCHARGE INFORMATION: DISCHARGE DATE: Jun 23, 2018 FINAL DIAGNOSIS Thoracic spinal compression CONDITION ON DISCHARGE: Stable CODE STATUS: Code Status: Full CARE HOME: SNF STAY <30 DAYS: Yes POST DISCHARGE ORDERS: ACTIVITY ORDERS: Activity as tolerated WEIGHT BEARING STATUS: Full weight bearing DIET AFTER DISCHARGE: Cardiac WOUND/INCISION CARE: Ice to area for comfort, Do not change dressing CHECKS AFTER DISCHARGE: CHECKS AFTER DISCHARGE: Check blood press - daily, Check your Temp as needed, Weigh Yourself Daily FOLLOW-UP: PHYSICIAN FOLLOW-UP: Dr. Miah Cole - 2 weeks TREATMENT/EQUIPMENT ORDERS: ADAPTIVE EQUIPMENT NEEDED: Front wheeled walker Physical Therapy For: Evalulation/Treatment Occupational Therapy For: Evaluation/Treatment DISCHARGE MEDICATIONS: Home Meds Active Scripts Polyethylene Glycol 3350 (POLYETHYLENE GLYCOL 3350) 17 Gm Powd.pack, 17 GM PO PRN BID PRN for CONSTIPATION (2nd Choice) for 30 Days, #60 PKT Prov:CHUY JHA MD 06/22/18 Magnesium Hydroxide (MILK OF MAGNESIA) 400 Mg/5 Ml Oral.susp, 2400 MG PO PRN Q12HR PRN for CONSTIPATION for 30 Days, #60 MISC Prov:CHUY JHA MD 06/22/18 Docusate Sodium (COLACE) 100 Mg Capsule, 100 MG PO BID for constipation for 30 Days, #60 CAP Prov:CHUY JHA MD 06/22/18 Calcium Carbonate (CALCIUM CARBONATE) 200 Mg Tab.chew, 500 MG PO PRN Q3HRS PRN for UPSET STOMACH for 30 Days, #60 TAB.CHEW Prov:CHUY JHA MD 06/22/18 Acetaminophen (TYLENOL) 325 Mg Tablet, 650 MG PO PRN Q6HRS PRN for Headaches, Temp > 101.5F for 30 Days, #60 TAB Prov:CHUY JHA MD 06/22/18 Hydrocodone Bit/Acetaminophen (HYDROCODONE-APAP 5-325 ) 1 Tab Tablet, 1-2 TAB PO PRN Q6HRS PRN for MILD PAIN for 6 Days, #40 TAB Prov:CHUY JHA MD 06/22/18 Cyclobenzaprine Hcl (CYCLOBENZAPRINE HCL) 10 Mg Tablet, 10 MG PO PRN TID PRN for MUSCLE SPASMS for 10 Days, #30 TAB Prov:CHUY JHA MD 06/22/18 Reported Medications Meloxicam (MELOXICAM) 7.5 Mg Tablet, 1 TAB PO DAILY for Home Med, #30 TAB 2 Refills 06/18/18 [place]-3 Fatty Acids/Fish Oil (FISH OIL 1,000 MG CAPSULE) 1 Each Capsule, 1 EACH PO BID for supplement, CAP 06/18/18 Hydrochlorothiazide (Hydrochlorothiazide) 12.5 Mg Capsule, 12.5 MG PO DAILY for Home Med, CAP 06/18/18 Lisinopril (LISINOPRIL) 10 Mg Tablet, 1 TAB PO DAILY16 for Home Med, #30 TAB 5 Refills 06/18/18 Lisinopril (LISINOPRIL) 20 Mg Tablet, 1 TAB PO DAILY for Home Med, #30 TAB 5 Refills 06/18/18 Metoprolol Tartrate (METOPROLOL TARTRATE) 25 Mg Tablet, 1 TAB PO BID for Home Med, #180 TAB 1 Refill 06/18/18 Gabapentin (GABAPENTIN ) 300 Mg Capsule, 300 MG PO TID for NEUROGENIC PAIN, CAP 06/18/18 Atorvastatin Calcium (ATORVASTATIN CALCIUM) 20 Mg Tablet, 1 TAB PO DAILY for Home Med, #30 TAB 5 Refills 06/18/18 Amlodipine Besylate (AMLODIPINE BESYLATE) 5 Mg Tablet, 5 MG PO DAILY for Home Med, TAB 06/18/18 CHUY JHA MD Jun 22, 2018 09:01
[2018-06-22 10:04] LABS: CALCIUM 8.7 mg/dL (8.5-10.1); CREATININE 1.1 mg/dL (0.7-1.3); POTASSIUM 4.3 mmol/L (3.5-5.1)
[2018-06-22 11:00] VITALS: BP 118/63
[2018-06-22 15:00] VITALS: BP 109/67
[2018-06-22] MEDS: LISINOPRIL 10 MG TABLET PO SCH (16:11)
[2018-06-22] MEDS: HYDROcodone/APAP 5/325MG 1 TAB TABLET PO PRN (16:13)
--- NOTE | 2018-06-22 16:31 | PDOC ---
PROGRESS NOTES Subjective Subjective Sitting up in chair. Objective Objective Minimal Tenderness Vital Signs Date Time Temp Pulse Resp B/P (MAP) Pulse Ox O2 Delivery O2 Flow Rate FiO2 06/22/18 16:11 52 118/63 06/22/18 11:00 97.8 19 98 Room Air 97.8 06/20/18 14:00 2 Intake and Output 06/22/18 07:00 Intake Total 800 ml Output Total 1650 ml Balance -850 ml Intake Oral 800 ml Output Urine Total 1650 ml Physical Exam Physical Exam ARIS Almazan 08/17. Incision flat and dry. Plan Plan of Care Unsteady gait. Needs rehab. consulted. Has cervical and lumbar spinal stenosis. That will need to be addressed later. Comment Review of Relevant I have reviewed the following items khanh (where applicable) has been applied. Labs Laboratory Tests Test 06/22/18 09:30 Sodium Level 139 mmol/L (136-145) Potassium Level 4.3 mmol/L (3.5-5.1) Chloride Level 103 mmol/L (98-107) Carbon Dioxide Level 22 mmol/L (21-32) Anion Gap 14 (6-14) Blood Urea Nitrogen 32 mg/dL (8-26) Creatinine 1.1 mg/dL (0.7-1.3) Estimated GFR (Cockcroft-Gault) 67.0 Glucose Level 220 mg/dL (70-99) Calcium Level 8.7 mg/dL (8.5-10.1) Laboratory Tests Test 06/22/18 09:30 Sodium Level 139 mmol/L (136-145) Potassium Level 4.3 mmol/L (3.5-5.1) Chloride Level 103 mmol/L (98-107) Carbon Dioxide Level 22 mmol/L (21-32) Anion Gap 14 (6-14) Blood Urea Nitrogen 32 mg/dL (8-26) Creatinine 1.1 mg/dL (0.7-1.3) Estimated GFR (Cockcroft-Gault) 67.0 Glucose Level 220 mg/dL (70-99) Calcium Level 8.7 mg/dL (8.5-10.1) Medications Current Medications Sodium Chloride (Normal Saline Flush) 3 ml PRN DAILY PRN IV AFTER MEDS AND BLOOD DRAWS; Start 06/18/18 at 18:00 Potassium Chloride/Dextrose/ Sod Cl 1,000 ml @ 75 mls/hr [id number] IV Last administered on 06/19/18 17:20; Start 06/18/18 at 17:47; Stop 06/22/18 at 06:45; Status DC Calcium Carbonate/ Glycine (Tums) 500 mg PRN Q3HRS PRN PO UPSET STOMACH; Start 06/18/18 at 18:00 Acetaminophen/ Hydrocodone Bitart (Lortab 5/325) 1 tab PRN Q4HRS PRN PO MILD PAIN Last administered on 06/22/18 16:13; Start 06/18/18 at 18:00 Acetaminophen/ Hydrocodone Bitart (Lortab 5/325) 2 tab PRN Q4HRS PRN PO MODERATE PAIN, SEVERE PAIN; Start 06/18/18 at 18:00 Acetaminophen (Tylenol) 650 mg PRN Q6HRS PRN PO Headaches, Temp > 101.5F; Start 06/18/18 at 18:00 Docusate Sodium (Colace) 100 mg BID PO Last administered on 06/22/18 08:31; Start 06/18/18 at 21:00 Magnesium Hydroxide (Milk Of Magnesia) 2,400 mg PRN Q12HR PRN PO CONSTIPATION, 2nd CHOICE Last administered on 06/21/18 10:09; Start 06/18/18 at 18:00 Fentanyl Citrate (Fentanyl 2ml Vial) 25 mcg PRN Q2HR PRN IV MODERATE PAIN; Start 06/18/18 at 18:00 Cyclobenzaprine HCl (Flexeril) 10 mg PRN TID PRN PO MUSCLE SPASMS Last administered on 06/21/18 16:18; Start 06/18/18 at 23:00 Amlodipine Besylate (Norvasc) 5 mg DAILY PO Last administered on 06/22/18 08: 30; Start 06/19/18 at 09:00 Atorvastatin Calcium (Lipitor) 20 mg HS PO Last administered on 06/21/18 20:12 ; Start 06/19/18 at 21:00 Gabapentin (Neurontin) 300 mg TID PO Last administered on 06/22/18 16:11; Start 06/19/18 at 09:00 Lisinopril (Prinivil) 10 mg DAILY16 PO Last administered on 06/22/18 16:11; Start 06/19/18 at 16:00 Lisinopril (Prinivil) 20 mg DAILY PO Last administered on 06/22/18at 08:30; Start 06/19/18 at 09:00 Metoprolol Tartrate (Lopressor) 25 mg BID PO Last administered on 06/22/18at 08: 31; Start 06/19/18 at 09:00 Hydrochlorothiazide (Microzide) 12.5 mg DAILY PO Last administered on at 08:31; Start 06/19/18 at 09:00 Bacitracin 71894 unit/Sodium Chloride 1,000 ml @ 1,000 mls/hr 1X ONCE IRR Last administered on 06/20/18at 10:03; Start 06/20/18 at 06:00; Stop 06/20/18 at 06: 59; Status DC Ondansetron HCl (Zofran) 4 mg PRN Q6HRS PRN IV NAUSEA/VOMITING; Start 06/20/18 at 07:00; Stop 06/21/18 at 06:59; Status DC Fentanyl Citrate (Fentanyl 2ml Vial) 25 mcg PRN Q5MIN PRN IV MILD PAIN; Start 06/20/18 at 07:00; Stop 06/21/18 at 06:59; Status DC Fentanyl Citrate (Fentanyl 2ml Vial) 50 mcg PRN Q5MIN PRN IV MODERATE TO SEVERE PAIN; Start 06/20/18 at 07:00; Stop 06/21/18 at 06:59; Status DC Morphine Sulfate (Morphine Sulfate) 1 mg PRN Q10MIN PRN IV SEVERE PAIN; Start 06/20/18 at 07:00; Stop 06/21/18 at 06:59; Status DC Ringer's Solution 1,000 ml @ 30 mls/hr Q24H IV ; Start 06/20/18 at 07:00; Stop 06/20/18 at 18:59; Status DC Lidocaine HCl (Xylocaine-Mpf 1% 2ml Vial) 2 ml PRN 1X PRN ID IV START; Start at 07:00; Stop 06/21/18 at 06:59; Status DC Hydromorphone HCl (Dilaudid) 0.5 mg PRN Q10MIN PRN IV SEV PAIN, Second choice; Start 06/20/18 at 07:00; Stop 06/21/18 at 06:59; Status DC Prochlorperazine Edisylate (Compazine) 5 mg PACU PRN PRN IV NAUSEA, MRX1; Start 06/20/18 at 07:00; Stop 06/21/18 at 06:59; Status DC Al Hydroxide/Mg Hydroxide (Mylanta Plus Xs) 30 ml PRN Q4HRS PRN PO HEARTBURN / GAS; Start 06/19/18 at 22:00; Status Cancel Gelatin (Gelfoam Size 100) 1 each STK-MED ONCE .ROUTE Last administered on 06/20 10:03; Start 06/20/18 at 06:52; Stop 06/20/18 at 06:53; Status DC Bupivacaine HCl/ Epinephrine Bitart (Sensorcain-Mpf Epi 0.5%-1:421025) 30 ml STK -MED ONCE .ROUTE Last administered on 06/20/18 10:03; Start 06/20/18 at 06:52; Stop 06/20/18 at 06:53; Status DC Ketorolac Tromethamine (Toradol For Or Only) 60 mg STK-MED ONCE .ROUTE Last administered on 06/20/18at 10:03; Start 06/20/18 at 06:52; Stop 06/20/18 at 06:53; Status DC Thrombin 20,000 unit STK-MED ONCE TP Last administered on 06/20/18at 10:03; Start 06/20/18 at 06:52; Stop 06/20/18 at 06:53; Status DC Propofol 20 ml @ As Directed STK-MED ONCE IV ; Start 06/20/18 at 07:42; Stop 06/20 at 07:43; Status DC Propofol 50 ml @ As Directed STK-MED ONCE IV ; Start 06/20/18 at 07:42; Stop 06/20 at 07:43; Status DC Fentanyl Citrate (Fentanyl 2ml Vial) 100 mcg STK-MED ONCE .ROUTE ; Start at 07:43; Stop 06/20/18 at 07:44; Status DC Succinylcholine Chloride (Anectine) 200 mg STK-MED ONCE .ROUTE ; Start 06/20/18 at 07:43; Stop 06/20/18 at 07:44; Status DC Rocuronium Ancram (Zemuron) 50 mg STK-MED ONCE .ROUTE ; Start 06/20/18 at 07:43 ; Stop 06/20/18 at 07:44; Status DC Remifentanil HCl (Ultiva) 2 mg STK-MED ONCE IV ; Start 06/20/18 at 07:43; Stop at 07:44; Status DC Lidocaine HCl (Lidocaine Pf 2% Vial) 5 ml STK-MED ONCE .ROUTE ; Start 06/20/18 at 07:43; Stop 06/20/18 at 07:44; Status DC Cefazolin Sodium/ Dextrose 50 ml @ As Directed STK-MED ONCE IV ; Start 06/20/18 at 08:13; Stop 06/20/18 at 08:15; Status DC Etomidate (Amidate) 20 mg STK-MED ONCE IV ; Start 06/20/18 at 08:15; Stop at 08:17; Status DC Dexamethasone Sodium Phosphate (Decadron) 20 mg STK-MED ONCE .ROUTE ; Start 06/20 at 09:12; Stop 06/20/18 at 09:13; Status DC Phenylephrine HCl (David-Synephrine Inj) 10 mg STK-MED ONCE .ROUTE ; Start at 09:12; Stop 06/20/18 at 09:13; Status DC Desflurane (Suprane) 90 ml STK-MED ONCE IH ; Start 06/20/18 at 09:12; Stop at 09:13; Status DC Ephedrine Sulfate (Akovaz) 50 mg STK-MED ONCE .ROUTE ; Start 06/20/18 at 09:20; Stop 06/20/18 at 09:21; Status DC Ondansetron HCl (Zofran) 4 mg STK-MED ONCE .ROUTE ; Start 06/20/18 at 09:42; Stop 06/20/18 at 09:43; Status DC Propofol 50 ml @ As Directed STK-MED ONCE IV ; Start 06/20/18 at 10:43; Stop 06/20 at 10:44; Status DC Dexamethasone Sodium Phosphate (Decadron) 4 mg Q6HRS IV Last administered on 01/31at 12:32; Start 06/20/18 at 14:00 Polyethylene Glycol (miraLAX PACKET) 17 gm PRN BID PRN PO CONSTIPATION, 1st CHOICE Last administered on 06/22/18at 08:36; Start 06/21/18 at 10:45 Active Scripts Active Polyethylene Glycol 3350 17 Gm Powd.pack 17 Gm PO PRN BID PRN 30 Days Milk Of Magnesia (Magnesium Hydroxide) 400 Mg/5 Ml Oral.susp 2,400 Mg PO PRN Q12HR PRN 30 Days Colace (Docusate Sodium) 100 Mg Capsule 100 Mg PO BID 30 Days Calcium Carbonate 200 Mg Tab.chew 500 Mg PO PRN Q3HRS PRN 30 Days Tylenol (Acetaminophen) 325 Mg Tablet 650 Mg PO PRN Q6HRS PRN 30 Days Hydrocodone-Apap 5-325 (Hydrocodone Bit/Acetaminophen) 1 Tab Tablet 1-2 Tab PO PRN Q6HRS PRN 6 Days Cyclobenzaprine Hcl 10 Mg Tablet 10 Mg PO PRN TID PRN 10 Days Reported Meloxicam 7.5 Mg Tablet 1 Tab PO DAILY Fish Oil 1,000 Mg Capsule ([place]-3 Fatty Acids/Fish Oil) 1 Each Capsule 1 Each PO BID Hydrochlorothiazide 12.5 Mg Capsule 12.5 Mg PO DAILY Lisinopril 10 Mg Tablet 1 Tab PO DAILY16 Lisinopril 20 Mg Tablet 1 Tab PO DAILY Metoprolol Tartrate 25 Mg Tablet 1 Tab PO BID Gabapentin (Gabapentin) 300 Mg Capsule 300 Mg PO TID Atorvastatin Calcium 20 Mg Tablet 1 Tab PO DAILY Amlodipine Besylate 5 Mg Tablet 5 Mg PO DAILY Vitals/I & O Vital Sign - Last 24 Hours 06/21/18 06/21/18 06/21/18 06/21/18 19:00 20:00 20:13 20:15 Temp 98.4 98.4 Pulse 61 67 Resp 18 20 B/P (MAP) 127/57 (80) 122/52 Pulse Ox 93 96 O2 Delivery Room Air Room Air Room Air 06/21/18 06/21/18 06/22/18 06/22/18 21:15 23:00 03:00 07:00 Temp 97.0 97.6 98.1 97.0 97.6 98.1 Pulse 53 55 55 Resp 20 20 18 18 B/P (MAP) 127/69 (88) 120/69 (86) 134/59 (84) Pulse Ox 96 93 96 100 O2 Delivery Room Air Room Air Room Air Room Air 06/22/18 06/22/18 06/22/18 06/22/18 08:00 08:30 08:30 08:31 Pulse 55 55 55 B/P (MAP) 134/59 134/59 134/59 O2 Delivery Room Air 06/22/18 06/22/18 11:00 16:11 Temp 97.8 97.8 Pulse 52 52 Resp 19 B/P (MAP) 118/63 (81) 118/63 Pulse Ox 98 O2 Delivery Room Air Intake and Output 06/21/18 06/21/18 06/22/18 15:00 23:00 07:00 Intake Total 400 ml 400 ml Output Total 800 ml 850 ml Balance -400 ml -450 ml MICHEAL HERNANDEZ MD Jun 22, 2018 16:31
[2018-06-22 19:30] VITALS: BP 107/65
[2018-06-22] MEDS: ATORVASTATIN CALCIUM 20 MG TABLET PO SCH (21:16)
[2018-06-22 23:00] VITALS: BP 135/74
[2018-06-23 03:00] VITALS: BP 129/80
[2018-06-23 07:00] VITALS: BP 132/75
[2018-06-23] MEDS: hydroCHLOROthiazide 12.5 MG CAPSULE PO SCH (08:44)
[2018-06-23] MEDS: GABAPENTIN 300 MG CAPSULE. PO SCH (08:44)
[2018-06-23] MEDS: DOCUSATE SODIUM 100 MG CAPSULE. PO SCH (08:44)
[2018-06-23] MEDS: METOPROLOL TART IMMED RELEASE 25 MG TABLET. PO SCH (08:45)
[2018-06-23] MEDS: LISINOPRIL 20 MG TABLET PO SCH (08:45)
[2018-06-23] MEDS: amLODIPine BESYLATE 5 MG TABLET PO SCH (08:46)
--- NOTE | 2018-06-23 08:57 | NUR ---
SW following. Pt has been accepted at [facility], RN notified. SW awaiting discharge confirmation. SW will continue to follow.
[2018-06-23] MEDS ORDERED: BISACODYL 10 MG SUPP.RECT. PR PRN (09:30)
[2018-06-23] MEDS: BISACODYL 5 MG TABLET.DR. PO PRN ×2 (10:17→10:18)
[2018-06-23 11:00] VITALS: BP 116/75
--- NOTE | 2018-06-23 11:03 | PDOC3 ---
Discharge Summary Visit Information Date of Admission: Jun 18, 2018 Date of Discharge: Jun 23, 2018 Admitting Diagnosis Comment: Lower extremity numbness and weakness -compression at T10-T11 is responsible for his recent severe weakness and numbness. improving s/p surgery 06/20/18 HTN - controlled CKD1 - Labs stable Complete heart block s/p PPM in situ - medtronic device, cardiology interrogated. EKG shows a sinus rhythm. Echo ok VILLA on CPAP - has brought his device. Brief Hospital Course Allergies Allergies Coded Allergies Type Severity Reaction Last Updated Verified No Known Drug Allergies 06/18/18 No Vital Signs Vital Signs Date Time Temp Pulse Resp B/P (MAP) Pulse Ox O2 Delivery O2 Flow Rate FiO2 06/23/18 08:46 54 132/75 06/23/18 08:00 Room Air 06/23/18 07:00 97.5 18 98 97.5 Lab Results Laboratory Tests Test 06/22/18 09:30 Sodium Level 139 mmol/L (136-145) Potassium Level 4.3 mmol/L (3.5-5.1) Chloride Level 103 mmol/L (98-107) Carbon Dioxide Level 22 mmol/L (21-32) Anion Gap 14 (6-14) Blood Urea Nitrogen 32 mg/dL (8-26) Creatinine 1.1 mg/dL (0.7-1.3) Estimated GFR (Cockcroft-Gault) 67.0 Glucose Level 220 mg/dL (70-99) Calcium Level 8.7 mg/dL (8.5-10.1) Brief Hospital Course Mr. Gomez is a 67 old white male who had a compression fracture T10-T11 with LE weakness and needed surgery of 06/20/18 . Had some past medical history including heart block PPN in situ -cards consulted device interrogated, echo okay no further interventions needed from cards Also on beta jeff - needing lortab post op here [facility]:neurosx, cards Proc; T10-T11 sx : Discharge Information Condition at Discharge: Improved, Stable Follow Up: Weeks ([place] after rehab dc) Disposition/Orders: Other (rehab) Scheduled Amlodipine Besylate (Amlodipine Besylate) 5 Mg Tablet, 5 MG PO DAILY for Home Med, (Reported) Entered as Reported by: RASHEL MELGAR on 06/18/182044 Last Taken: Unknown Dose on Unknown Date & Time Last Action: Continued on 06/18/182333 by MICHEAL HERNANDEZ Atorvastatin Calcium (Atorvastatin Calcium) 20 Mg Tablet, 1 TAB PO DAILY for Home Med, #30 Ref 5 (Reported) Entered as Reported by: RASHEL MELGAR on 06/18/182044 Last Taken: Unknown Dose on Unknown Date & Time Last Action: Continued on 06/18/182333 by MICHEAL HERNANDEZ Docusate Sodium (Colace) 100 Mg Capsule, 100 MG PO BID for constipation for 30 Days, #60 Prescribed by: CHUY JHA MD on 06/22/18 0858 Gabapentin (Gabapentin ) 300 Mg Capsule, 300 MG PO TID for NEUROGENIC PAIN, ( Reported) Entered as Reported by: RASHEL MELGAR on 06/18/182044 Last Taken: Unknown Dose on Unknown Date & Time Last Action: Continued on 06/18/182333 by MICHEAL HERNANDEZ Hydrochlorothiazide (Hydrochlorothiazide) 12.5 Mg Capsule, 12.5 MG PO DAILY for Home Med, (Reported) Entered as Reported by: RASHEL MELGAR on 06/18/182044 Last Taken: Unknown Dose on Unknown Date & Time Last Action: Converted on 06/18/182333 by MICHEAL HERNANDEZ Lisinopril (Lisinopril) 20 Mg Tablet, 1 TAB PO DAILY for Home Med, #30 Ref 5 ( Reported) Entered as Reported by: RASHEL MELGAR on 06/18/182044 Last Taken: Unknown Dose on Unknown Date & Time Last Action: Continued on 06/18/182333 by MICHEAL HERNANDEZ Lisinopril (Lisinopril) 10 Mg Tablet, 1 TAB PO DAILY16 for Home Med, #30 Ref 5 ( Reported) Entered as Reported by: RASHEL MELGAR on 06/18/182044 Last Taken: Unknown Dose on Unknown Date & Time Last Action: Continued on 06/18/182333 by MICHEAL HERNANDEZ Meloxicam (Meloxicam) 7.5 Mg Tablet, 1 TAB PO DAILY for Home Med, #30 Ref 2 ( Reported) Entered as Reported by: RASHEL MELGAR on 06/18/182044 Last Taken: Unknown Dose on Unknown Date & Time Last Action: HELD on 2333 by MICHEAL HERNANDEZ Metoprolol Tartrate (Metoprolol Tartrate) 25 Mg Tablet, 1 TAB PO BID for Home Med, #180 Ref 1 (Reported) Entered as Reported by: RASHEL MELGAR on 06/18/182044 Last Taken: Unknown Dose on Unknown Date & Time Last Action: Continued on 06/18/182333 by MICHEAL HERNANDEZ [place]-3 Fatty Acids/Fish Oil (Fish Oil 1,000 Mg Capsule) 1 Each Capsule, 1 EACH PO BID for supplement, (Reported) Entered as Reported by: RASHEL MELGAR on 06/18/182044 Last Taken: Unknown Dose on Unknown Date & Time Last Action: HELD on 2333 by MICHEAL HERNANDEZ Scheduled PRN Acetaminophen (Tylenol) 325 Mg Tablet, 650 MG PO PRN Q6HRS PRN for Headaches, Temp > 101.5F for 30 Days, #60 Prescribed by: CHUY JHA MD on 06/22/18 0858 Calcium Carbonate (Calcium Carbonate) 200 Mg Tab.chew, 500 MG PO PRN Q3HRS PRN for UPSET STOMACH for 30 Days, #60 Prescribed by: CHUY JHA MD on 06/22/18 0858 Cyclobenzaprine Hcl (Cyclobenzaprine Hcl) 10 Mg Tablet, 10 MG PO PRN TID PRN for MUSCLE SPASMS for 10 Days, #30 Prescribed by: CHUY JHA MD on 06/22/18 0858 Hydrocodone Bit/Acetaminophen (Hydrocodone-Apap 5-325 ) 1 Tab Tablet, 1-2 TAB PO PRN Q6HRS PRN for MILD PAIN for 6 Days, #40 Prescribed by: CHUY JHA MD on 06/22/18 0858 Magnesium Hydroxide (Milk Of Magnesia) 400 Mg/5 Ml Oral.susp, 2,400 MG PO PRN Q12HR PRN for CONSTIPATION for 30 Days, #60 Prescribed by: CHUY JHA MD on 06/22/18 0858 Polyethylene Glycol 3350 (Polyethylene Glycol 3350) 17 Gm Powd.pack, 17 GM PO PRN BID PRN for CONSTIPATION (2nd Choice) for 30 Days, #60 Prescribed by: CHUY JHA MD on 06/22/18 0858 SKYE GARZA MD Jun 23, 2018 11:03
--- NOTE | 2018-06-23 11:59 | NUR ---
SW following. Discharge paperwork faxed to [facility]. [facility] will transport pt at noon. Pt choice and rights letter signed and placed on chart. RN notified.
--- NOTE | 2018-06-23 12:02 | NUR ---
Attempted to call [facility] rehab to give report on patient yet no one answered,
--- NOTE | 2018-06-23 12:37 | NUR ---
Discharge instructions and belongings reviewed with patient and , verbalized understanding. Patient was escorted out of hospital via WC/transport by this nurse and accompanied by his Mahsa.
--- NOTE | 2018-06-23 15:19 | PDOC ---
PROGRESS NOTES Subjective Subjective No new complaints. Objective Objective Vital Signs Date Time Temp Pulse Resp B/P (MAP) Pulse Ox O2 Delivery O2 Flow Rate FiO2 06/23/18 11:00 97.8 51 18 116/75 (89) 91 Room Air 97.8 06/20/18 14:00 2 Intake and Output 06/23/18 07:00 Intake Total 900 ml Output Total 1750 ml Balance -850 ml Intake Oral 900 ml Output Urine Total 1750 ml Physical Exam Physical Exam He is participating well with therapy and walking with roller walker.I spoke to his and therapy staff. Plan Plan of Care Agree with plans for rehab unit transfer for a short stay. Comment Review of Relevant I have reviewed the following items khanh (where applicable) has been applied. Labs Laboratory Tests Test 06/22/18 09:30 Sodium Level 139 mmol/L (136-145) Potassium Level 4.3 mmol/L (3.5-5.1) Chloride Level 103 mmol/L (98-107) Carbon Dioxide Level 22 mmol/L (21-32) Anion Gap 14 (6-14) Blood Urea Nitrogen 32 mg/dL (8-26) Creatinine 1.1 mg/dL (0.7-1.3) Estimated GFR (Cockcroft-Gault) 67.0 Glucose Level 220 mg/dL (70-99) Calcium Level 8.7 mg/dL (8.5-10.1) Medications Current Medications Sodium Chloride (Normal Saline Flush) 3 ml PRN DAILY PRN IV AFTER MEDS AND BLOOD DRAWS; Start 06/18/18 at 18:00; Stop 06/23/18 at 12:39; Status DC Potassium Chloride/Dextrose/ Sod Cl 1,000 ml @ 75 mls/hr [id number] IV Last administered on 06/19/18at 17:20; Start 06/18/18 at 17:47; Stop 06/22/18 at 06:45; Status DC Calcium Carbonate/ Glycine (Tums) 500 mg PRN Q3HRS PRN PO UPSET STOMACH; Start 06/18/18 at 18:00; Stop 06/23/18 at 12:39; Status DC Acetaminophen/ Hydrocodone Bitart (Lortab 5/325) 1 tab PRN Q4HRS PRN PO MILD PAIN Last administered on 06/22/18at 16:13; Start 06/18/18 at 18:00; Stop at 12:39; Status DC Acetaminophen/ Hydrocodone Bitart (Lortab 5/325) 2 tab PRN Q4HRS PRN PO MODERATE PAIN, SEVERE PAIN; Start 06/18/18 at 18:00; Stop 06/23/18 at 12:39; Status DC Acetaminophen (Tylenol) 650 mg PRN Q6HRS PRN PO Headaches, Temp > 101.5F; Start 06/18/18 at 18:00; Stop 06/23/18 at 12:39; Status DC Docusate Sodium (Colace) 100 mg BID PO Last administered on 06/23/18 08:44; Start 06/18/18 at 21:00; Stop 06/23/18 at 12:39; Status DC Magnesium Hydroxide (Milk Of Magnesia) 2,400 mg PRN Q12HR PRN PO CONSTIPATION, 2nd CHOICE Last administered on 06/21/18 10:09; Start 06/18/18 at 18:00; Stop 03/03 at 12:39; Status DC Fentanyl Citrate (Fentanyl 2ml Vial) 25 mcg PRN Q2HR PRN IV MODERATE PAIN; Start 06/18/18 at 18:00; Stop 06/23/18 at 12:39; Status DC Cyclobenzaprine HCl (Flexeril) 10 mg PRN TID PRN PO MUSCLE SPASMS Last administered on 06/21/18 16:18; Start 06/18/18 at 23:00; Stop 06/23/18 at 12:39; Status DC Amlodipine Besylate (Norvasc) 5 mg DAILY PO Last administered on 06/23/18 08: 46; Start 06/19/18 at 09:00; Stop 06/23/18 at 12:39; Status DC Atorvastatin Calcium (Lipitor) 20 mg HS PO Last administered on 06/22/18 21:16 ; Start 06/19/18 at 21:00; Stop 06/23/18 at 12:39; Status DC Gabapentin (Neurontin) 300 mg TID PO Last administered on 06/23/18 08:44; Start 06/19/18 at 09:00; Stop 06/23/18 at 12:39; Status DC Lisinopril (Prinivil) 10 mg DAILY16 PO Last administered on 3/10/19at 16:11; Start 06/19/18 at 16:00; Stop 06/23/18 at 12:39; Status DC Lisinopril (Prinivil) 20 mg DAILY PO Last administered on 06/23/18at 08:45; Start 06/19/18 at 09:00; Stop 06/23/18 at 12:39; Status DC Metoprolol Tartrate (Lopressor) 25 mg BID PO Last administered on 06/23/18at 08: 45; Start 06/19/18 at 09:00; Stop 06/23/18 at 12:39; Status DC Hydrochlorothiazide (Microzide) 12.5 mg DAILY PO Last administered on at 08:44; Start 06/19/18 at 09:00; Stop 06/23/18 at 12:39; Status DC Bacitracin 91649 unit/Sodium Chloride 1,000 ml @ 1,000 mls/hr 1X ONCE IRR Last administered on 06/20/18at 10:03; Start 06/20/18 at 06:00; Stop 06/20/18 at 06: 59; Status DC Ondansetron HCl (Zofran) 4 mg PRN Q6HRS PRN IV NAUSEA/VOMITING; Start 06/20/18 at 07:00; Stop 06/21/18 at 06:59; Status DC Fentanyl Citrate (Fentanyl 2ml Vial) 25 mcg PRN Q5MIN PRN IV MILD PAIN; Start 06/20/18 at 07:00; Stop 06/21/18 at 06:59; Status DC Fentanyl Citrate (Fentanyl 2ml Vial) 50 mcg PRN Q5MIN PRN IV MODERATE TO SEVERE PAIN; Start 06/20/18 at 07:00; Stop 06/21/18 at 06:59; Status DC Morphine Sulfate (Morphine Sulfate) 1 mg PRN Q10MIN PRN IV SEVERE PAIN; Start 06/20/18 at 07:00; Stop 06/21/18 at 06:59; Status DC Ringer's Solution 1,000 ml @ 30 mls/hr Q24H IV ; Start 06/20/18 at 07:00; Stop 06/20/18 at 18:59; Status DC Lidocaine HCl (Xylocaine-Mpf 1% 2ml Vial) 2 ml PRN 1X PRN ID IV START; Start at 07:00; Stop 06/21/18 at 06:59; Status DC Hydromorphone HCl (Dilaudid) 0.5 mg PRN Q10MIN PRN IV SEV PAIN, Second choice; Start 06/20/18 at 07:00; Stop 06/21/18 at 06:59; Status DC Prochlorperazine Edisylate (Compazine) 5 mg PACU PRN PRN IV NAUSEA, MRX1; Start 06/20/18 at 07:00; Stop 06/21/18 at 06:59; Status DC Al Hydroxide/Mg Hydroxide (Mylanta Plus Xs) 30 ml PRN Q4HRS PRN PO HEARTBURN / GAS; Start 06/19/18 at 22:00; Status Cancel Gelatin (Gelfoam Size 100) 1 each STK-MED ONCE .ROUTE Last administered on 06/20at 10:03; Start 06/20/18 at 06:52; Stop 06/20/18 at 06:53; Status DC Bupivacaine HCl/ Epinephrine Bitart (Sensorcain-Mpf Epi 0.5%-1:[id number]) 30 ml STK -MED ONCE .ROUTE Last administered on 06/20/18at 10:03; Start 06/20/18 at 06:52; Stop 06/20/18 at 06:53; Status DC Ketorolac Tromethamine (Toradol For Or Only) 60 mg STK-MED ONCE .ROUTE Last administered on 06/20/18at 10:03; Start 06/20/18 at 06:52; Stop 06/20/18 at 06:53; Status DC Thrombin 20,000 unit STK-MED ONCE TP Last administered on 06/20/18at 10:03; Start 06/20/18 at 06:52; Stop 06/20/18 at 06:53; Status DC Propofol 20 ml @ As Directed STK-MED ONCE IV ; Start 06/20/18 at 07:42; Stop 06/20 at 07:43; Status DC Propofol 50 ml @ As Directed STK-MED ONCE IV ; Start 06/20/18 at 07:42; Stop 06/20 at 07:43; Status DC Fentanyl Citrate (Fentanyl 2ml Vial) 100 mcg STK-MED ONCE .ROUTE ; Start at 07:43; Stop 06/20/18 at 07:44; Status DC Succinylcholine Chloride (Anectine) 200 mg STK-MED ONCE .ROUTE ; Start 06/20/18 at 07:43; Stop 06/20/18 at 07:44; Status DC Rocuronium Orland (Zemuron) 50 mg STK-MED ONCE .ROUTE ; Start 06/20/18 at 07:43 ; Stop 06/20/18 at 07:44; Status DC Remifentanil HCl (Ultiva) 2 mg STK-MED ONCE IV ; Start 06/20/18 at 07:43; Stop at 07:44; Status DC Lidocaine HCl (Lidocaine Pf 2% Vial) 5 ml STK-MED ONCE .ROUTE ; Start 06/20/18 at 07:43; Stop 06/20/18 at 07:44; Status DC Cefazolin Sodium/ Dextrose 50 ml @ As Directed STK-MED ONCE IV ; Start 06/20/18 at 08:13; Stop 06/20/18 at 08:15; Status DC Etomidate (Amidate) 20 mg STK-MED ONCE IV ; Start 06/20/18 at 08:15; Stop at 08:17; Status DC Dexamethasone Sodium Phosphate (Decadron) 20 mg STK-MED ONCE .ROUTE ; Start 06/20 at 09:12; Stop 06/20/18 at 09:13; Status DC Phenylephrine HCl (David-Synephrine Inj) 10 mg STK-MED ONCE .ROUTE ; Start at 09:12; Stop 06/20/18 at 09:13; Status DC Desflurane (Suprane) 90 ml STK-MED ONCE IH ; Start 06/20/18 at 09:12; Stop at 09:13; Status DC Ephedrine Sulfate (Akovaz) 50 mg STK-MED ONCE .ROUTE ; Start 06/20/18 at 09:20; Stop 06/20/18 at 09:21; Status DC Ondansetron HCl (Zofran) 4 mg STK-MED ONCE .ROUTE ; Start 06/20/18 at 09:42; Stop 06/20/18 at 09:43; Status DC Propofol 50 ml @ As Directed STK-MED ONCE IV ; Start 06/20/18 at 10:43; Stop 06/20 at 10:44; Status DC Dexamethasone Sodium Phosphate (Decadron) 4 mg Q6HRS IV Last administered on 01/31at 17:42; Start 06/20/18 at 14:00; Stop 06/22/18 at 19:16; Status DC Polyethylene Glycol (miraLAX PACKET) 17 gm PRN BID PRN PO CONSTIPATION, 1st CHOICE Last administered on 06/22/18at 08:36; Start 06/21/18 at 10:45; Stop at 12:39; Status DC Bisacodyl (Dulcolax Supp) 10 mg PRN DAILY PRN PA CONSTIPATION; Start 06/23/18 at 09:30; Stop 06/23/18 at 12:39; Status DC Bisacodyl (Dulcolax Tab) 5 mg PRN DAILY PRN PO CONSTIPATION 3RD CHOICE Last administered on 06/23/18at 10:18; Start 06/23/18 at 09:30; Stop 06/23/18 at 12:39 ; Status DC Active Scripts Active Polyethylene Glycol 3350 17 Gm Powd.pack 17 Gm PO PRN BID PRN 30 Days Milk Of Magnesia (Magnesium Hydroxide) 400 Mg/5 Ml Oral.susp 2,400 Mg PO PRN Q12HR PRN 30 Days Colace (Docusate Sodium) 100 Mg Capsule 100 Mg PO BID 30 Days Calcium Carbonate 200 Mg Tab.chew 500 Mg PO PRN Q3HRS PRN 30 Days Tylenol (Acetaminophen) 325 Mg Tablet 650 Mg PO PRN Q6HRS PRN 30 Days Hydrocodone-Apap 5-325 (Hydrocodone Bit/Acetaminophen) 1 Tab Tablet 1-2 Tab PO PRN Q6HRS PRN 6 Days Cyclobenzaprine Hcl 10 Mg Tablet 10 Mg PO PRN TID PRN 10 Days Reported Meloxicam 7.5 Mg Tablet 1 Tab PO DAILY Fish Oil 1,000 Mg Capsule (Jenera-3 Fatty Acids/Fish Oil) 1 Each Capsule 1 Each PO BID Hydrochlorothiazide 12.5 Mg Capsule 12.5 Mg PO DAILY Lisinopril 10 Mg Tablet 1 Tab PO DAILY16 Lisinopril 20 Mg Tablet 1 Tab PO DAILY Metoprolol Tartrate 25 Mg Tablet 1 Tab PO BID Gabapentin (Gabapentin) 300 Mg Capsule 300 Mg PO TID Atorvastatin Calcium 20 Mg Tablet 1 Tab PO DAILY Amlodipine Besylate 5 Mg Tablet 5 Mg PO DAILY Vitals/I & O Vital Sign - Last 24 Hours 06/22/18 06/22/18 06/22/18 06/22/18 16:11 17:13 19:30 20:00 Temp 97.8 97.8 Pulse 52 55 Resp 18 B/P (MAP) 118/63 107/65 (79) Pulse Ox 97 O2 Delivery Room Air Room Air Room Air 06/22/18 06/22/18 06/23/18 06/23/18 21:00 23:00 03:00 07:00 Temp 97.7 97.7 97.5 97.7 97.7 97.5 Pulse 55 53 57 54 Resp 18 18 18 B/P (MAP) 107/65 135/74 (94) 129/80 (96) 132/75 (94) Pulse Ox 92 99 98 O2 Delivery Room Air BiPAP/CPAP Room Air 06/23/18 06/23/18 06/23/18 06/23/18 08:00 08:45 08:45 08:46 Pulse 54 54 54 B/P (MAP) 132/75 132/75 132/75 O2 Delivery Room Air 06/23/18 11:00 Temp 97.8 97.8 Pulse 51 Resp 18 B/P (MAP) 116/75 (89) Pulse Ox 91 O2 Delivery Room Air Intake and Output 06/22/18 06/22/18 06/23/18 15:00 23:00 07:00 Intake Total 900 ml Output Total 250 ml 1050 ml 450 ml Balance -250 ml -1050 ml 450 ml ANA TREVINO MD Jun 23, 2018 15:19
--- NOTE | 2018-06-24 16:08 | PATHOLOGY ---
[facility] Accession Number: [id number] . 01 Material submitted: . THORACIC DISC AND DECOMPRESSION . 01 Clinical history: . Moderately severe thoracic stenosis, left sided disc herniation . 02 Diagnosis: Segments of fibrocartilaginous, adipose and skeletal muscle tissue and bone, thoracic disc and decompression: - Degenerative changes of fibrocartilaginous tissue. (JPM:game developer; 06/24/2018) MBR/06/24/2018 . 02 Comment: There is no evidence of an acute inflammatory process or malignancy. (JPM:game developer; 06/24/2018) . 02 Electronically signed: . Bernardino Conde MD, Pathologist NPI- [id number] . 01 Gross description: . Received in formalin labeled "Candelario Gomez, thoracic disc and decompression," are several pieces of glistening, fibrous tissue measuring 4.1 x 3.1 x 1.3 cm in aggregate dimensions, containing small fragments of possible bone. The tissue is submitted representatively in cassette A1, following decalcification. (TSD; 06/23/2018) TOB/TOB . 02 Pathologist provided ICD-10: M51.34 . 02 CPT . 177806, 152713 Specimen Comment: A courtesy copy of this report has been sent to Specimen Comment: [phone], . Specimen Comment: Report sent to / DR MIRELES Specimen Comment: A duplicate report has been generated due to demographic updates. Performed at: 01 [facility] [address], [place], [place] [id number] MD Ryan Sanchez MD Phone: [phone] Performed at: 02 [facility] [address] [place], [place] [id number] MD Bernardino Conde MD Phone: [phone]
--- NOTE | 2018-07-04 16:36 | RAD ---
Indication: Fluoroscopy guidance for at for microdiscectomy at T10-T11 in the OR. TECHNIQUE: Fluoroscopy guidance for above-mentioned procedure with 5 images. COMPARISON: None FINDINGS: Surgical instrument is seen projecting at the level of T10-T11 disc. IMPRESSION: Fluoroscopy guidance provided for above-mentioned procedure. Please see procedure note in patient's chart for full information. Electronically signed by: Josh Quarles DO (07/04/2018 4:33 PM) [facility]
== END 2018-06-23 12:38 | DRG 519 ==
LOC: 4 NORTH 17:16
PROVIDERS: ADMIT Neurological Surgery; ATTEND Neurological Surgery
PROC: 5A09357 Assistance with Respiratory Ventilation, Less than 24 Consecutive Hours, Continuous Positive Airway Pressure (ICD-10-PCS; 2018-06-18)
PROC: 4B02XSZ Measurement of Cardiac Pacemaker, External Approach (ICD-10-PCS; 2018-06-19)
PROC: 4A11X4G Monitoring of Peripheral Nervous Electrical Activity, Intraoperative, External Approach (ICD-10-PCS; 2018-06-20)
PROC: 00NX0ZZ Release Thoracic Spinal Cord, Open Approach (ICD-10-PCS; 2018-06-20)
PROC: 0RB90ZZ Excision of Thoracic Vertebral Disc, Open Approach (ICD-10-PCS; principal; 2018-06-20 08:30)
DX: M51.04 Intervertebral disc disorders with myelopathy, thoracic region (principal); I13.0 Hypertensive heart and chronic kidney disease with heart failure and stage 1 through stage 4 chronic kidney disease, or unspecified chronic kidney disease; M48.04 Spinal stenosis, thoracic region; M48.061 Spinal stenosis, lumbar region without neurogenic claudication; M48.02 Spinal stenosis, cervical region; G62.9 Polyneuropathy, unspecified; G47.33 Obstructive sleep apnea (adult) (pediatric); R29.2 Abnormal reflex; G89.29 Other chronic pain; I50.9 Heart failure, unspecified; N18.1 Chronic kidney disease, stage 1; K59.00 Constipation, unspecified; Z82.49 Family history of ischemic heart disease and other diseases of the circulatory system; Z83.49 Family history of other endocrine, nutritional and metabolic diseases; Z95.0 Presence of cardiac pacemaker
CPT/HCPCS: 36415; 72126; 72128; 72129; 72132; 72270; 76000; 80048; 80053; 85025; 85610; 88304; 88311; 93005; 93306; 93970; J0330; J0696; J1100; J1885; J2001; J2405; J2704; J3010; J3490; J7030; J7120; 97110; 97116; 97530; 97535

== ENCOUNTER → 2018-08-06 | Outpatient (CLI) | payer MEDICARE, OTHER ==
[~2018-08-06] MED LIST: ACET325T9 PO; AMLO5TAB10 PO; ATOR20TA58 PO; CALC200T23 PO; CYCL10TA2 PO; DOCU-109 PO; GABA300C18 PO; HYDR-2761 PO; HYDR12.59 PO; LISI-334 PO; LISI10TA2 PO; MAGN400O7 PO; MELO7.5T29 PO; METH750T2 PO; METO25TA4 PO; OMEG1CAP6 PO; OXYC1TAB15 PO; POLY17PO28 PO
[2018-08-06 14:24] LABS: BASO # 0.1 x10^3/uL (0.0-0.2); BASO % 1 % (0-3); EOS # 0.2 x10^3/uL (0.0-0.7); EOS % 2 % (0-3); HEMATOCRIT 43.2 % (39.0-53.0); HEMOGLOBIN 14.7 g/dL (13.0-17.5); LYMPH # 2.1 x10^3/uL (1.0-4.8); LYMPH % 27 % (24-48); MEAN CORPUSCULAR HEMOGLOBIN 31 pg (25-35); MEAN CORPUSCULAR HGB CONC 34 g/dL (31-37); MEAN CORPUSCULAR VOLUME 93 fL (79-100); MONO # 0.5 x10^3/uL (0.0-1.1); MONO % 7 % (0-9); NEUT # 5.1 x10^3uL (1.8-7.7); NEUT % 64 % (31-73); PLATELET COUNT 157 x10^3/uL (140-400); RED BLOOD COUNT 4.67 x10^6/uL (4.30-5.70)
[2018-08-06 14:35] LABS: PROTHROMBIN TIME PATIENT 13.6 SEC (11.7-14.0)
[2018-08-06 15:00] LABS: ALBUMIN 3.5 g/dL (3.4-5.0); ALBUMIN/GLOBULIN RATIO 1.1 (1.0-1.7); CALCIUM 8.7 mg/dL (8.5-10.1); GFR 74.8; POTASSIUM 3.8 mmol/L (3.5-5.1); TOTAL BILIRUBIN 0.6 mg/dL (0.2-1.0); TOTAL PROTEIN 6.7 g/dL (6.4-8.2)
== END | disposition home or self-care (01) ==
LOC: SURGPAT 13:11
PROVIDERS: ATTEND Neurological Surgery
DX: Z01.818 Encounter for other preprocedural examination (principal); M48.02 Spinal stenosis, cervical region
CPT/HCPCS: 36415; 80053; 83036; 85025; 85610; 85730; 87641

== ENCOUNTER 2018-08-13 09:19 | Inpatient (IN) | payer MEDICARE, OTHER ==
--- NOTE | 2018-08-12 17:19 | PREOP HP ---
DATE OF SERVICE: 08/13/2018. DATE OF SURGERY: 08/13/2018. HISTORY OF PRESENT ILLNESS: The patient is a pleasant 67-year-old who has had problems with severe cervical stenosis, thoracic herniated disc with severe myelopathy and severe lumbar stenosis. Two weeks ago, he underwent thoracic surgery with removal of herniated disc and has improved significantly. He continues to notice numbness in both of his legs, greater on the right side than the left; however, his strength has improved. He continues to be unsteady, but feels less unsteady since his thoracic surgery has been completed. He feels stronger virtually every day. PAST MEDICAL HISTORY: Chronic kidney disease stage 2, pacemaker, arthritis, hypertension. PAST SURGICAL HISTORY: Cervical surgery in 1984. Thoracic decompression and diskectomy. SOCIAL HISTORY: . Employed. Nonsmoker. Drinks alcohol 1-2 times per year. ALLERGIES: No known drug allergies. CURRENT MEDICATIONS: Gabapentin, ammonium lactate, atorvastatin, calcium, atropine, hydrochlorothiazide, lisinopril, meloxicam, metoprolol, multivitamin, amlodipine, cyanocobalamin, fish oil. REVIEW OF SYSTEMS: A 12-point review of systems was obtained and is noncontributory except for that mentioned above. PHYSICAL EXAMINATION: NEUROSURGERY EXAMINATION: GENERAL APPEARANCE: Alert, pleasant, in no acute distress. HEAD: Normocephalic and atraumatic. SKIN: Warm and dry. MUSCULOSKELETAL: There is healing lower thoracic incision. Cervical paraspinal muscle bulk and strength are normal. Lumbar paraspinal muscle bulk is normal. Restricted range of motion of lumbar spine, moderate tenderness of lower lumbar spine to palpation, normal range of motion of the upper and lower extremities bilaterally. EXTREMITIES: No clubbing, cyanosis or edema. NEUROLOGIC: Alert and oriented x 3, normal recent and remote memory, strength 5/5 in bilateral lower extremities. Sensory was intact to light touch in the lower extremities bilaterally except for decrease in both of his legs diffusely. Reflexes were increased and symmetric in bilateral upper and lower extremities. Unsteady gait, uses a walker. IMAGING: I reviewed a total spine myelogram and post-myelogram CT scan from 06/18/2018. On the cervical study, there is a significant cervical spondylosis. C4 and C5 were fused. There is severe spinal stenosis at C5-C6 and to a lesser extent at C6-C7. I also reviewed lumbar images. There is severe stenosis at L2-L3 and a complete block at L3-L4. This study at L3-L4 suggest large herniated disc. ASSESSMENT: Spinal stenosis, cervical region. PLAN: At this point, I feel that now he has improved following his lower thoracic myelopathy from the disk herniation. Cervical surgery needs to be considered. I did review the films with Dr. Archer at and have decided to perform a cervical laminectomy to decompress the spinal cord and cervical region. We will make plans to move forward with cervical laminectomy at C5 through C7 with posterior instrumentation, fusion. He understands. He would like to proceed. We will make the arrangements. MICHEAL HERNANDEZ MD DR: THUY/kaye JOB#: [id number] / [id number] PEPE
[~2018-08-13] VITALS: Ht 170.2 cm; Wt 86.2 kg
[~2018-08-13 09:19] MED LIST changes: +BACITRACIN 50,000 UNIT in IV NORMAL SALINE 1000ML BAG 1,000 ML IRR ONE; +BUPIVAC MPF-EPI 0.5%-1:200000 30 ML VIAL. ONE; +GELATIN SPONGE SIZE 100. ONE; +IV RINGERS,LACTATED 1000ML 1,000 ML IV SCH; +KETOROLAC 60 MG/2 ML INJ FOR OR. ONE; -METH750T2 PO; +ONDANSETRON PF 4 MG/2 ML VIAL. IV PRN; -OXYC1TAB15 PO; +PROCHLORPERAZINE 10 MG/2 ML VIAL. IV PRN; +THROMBIN TOPICAL 20,000 UNIT SPRAY.SYRN KIT TP ONE; +fentaNYL PF VIAL 100 MCG/2 ML VIAL IV PRN
[2018-08-13] MEDS ORDERED: IV RINGERS,LACTATED 1000ML 1,000 ML IV SCH (09:31)
[2018-08-13] MEDS ORDERED: fentaNYL PF VIAL 100 MCG/2 ML VIAL IV PRN ×3 (09:45→16:45)
[2018-08-13] MEDS ORDERED: MIDAZOLAM HCL/PF 2 MG/2 ML VIAL. IV PRN (09:45)
[2018-08-13] MEDS ORDERED: LIDOCAINE 1% PF 2 ML VIAL. ID PRN (09:45)
[2018-08-13] MEDS ORDERED: REMIFENTANIL 2 MG VIAL. IV ONE (11:24)
[2018-08-13] MEDS ORDERED: GLYCOPYRROLATE 1 MG/5 ML VIAL. ONE (11:24)
[2018-08-13] MEDS ORDERED: ROCURONIUM 50 MG/5 ML VIAL. ONE (11:24)
[2018-08-13] MEDS ORDERED: PHENYLEPHRINE 10 MG/ML VIAL. ONE (11:25)
[2018-08-13] MEDS ORDERED: ONDANSETRON PF 4 MG/2 ML VIAL. ONE (11:25)
[2018-08-13] MEDS ORDERED: DESFLURANE > 120 MINUTES IH ONE (11:25)
[2018-08-13] MEDS ORDERED: PROPOFOL 20 ML IV ONE ×2 (11:25→15:16)
[2018-08-13] MEDS ORDERED: DEXAMETHASONE SOD PHOS 20 MG/5 ML VIAL. ONE (11:25)
[2018-08-13] MEDS ORDERED: ACETAMINOPHEN 325 MG TABLET. PO PRN (12:30)
[2018-08-13] MEDS ORDERED: NALOXONE 0.4 MG/ML VIAL. IV PRN (12:30)
[2018-08-13] MEDS ORDERED: diphenhydrAMINE HCL 25 MG CAPSULE PO PRN (12:30)
[2018-08-13] MEDS ORDERED: MAGNESIUM HYDROXIDE 2,400 MG/30 ML ORAL.SUSP. PO PRN ×2 (12:30)
[2018-08-13] MEDS ORDERED: oxyCODONE/APAP 5/325 1 TAB TABLET PO PRN (12:30)
[2018-08-13] MEDS ORDERED: MAG HYDROX/ALUMINUM HYD/SIMETH 30 ML ORAL.SUSP PO PRN (12:30)
[2018-08-13] MEDS ORDERED: 0.9 % SODIUM CHLORIDE 10 ML DISP.SYRIN. IV PRN (12:30)
[2018-08-13] MEDS ORDERED: ONDANSETRON PF 4 MG/2 ML VIAL. IV PRN (12:30)
[2018-08-13] MEDS ORDERED: CALCIUM CARBONATE 500 MG TAB.CHEW PO PRN ×2 (12:30)
[2018-08-13] MEDS ORDERED: POLYETHYLENE GLYCOL 3350 17 GM PACKET. PO PRN (12:50)
[2018-08-13] MEDS ORDERED: ceFAZolin SODIUM 1 GM in IV DEXTROSE 5% 50 ML IV SCH (14:00)
[2018-08-13] MEDS ORDERED: REMIFENTANIL 1 MG VIAL. IV ONE (14:41)
[2018-08-13] MEDS ORDERED: LISINOPRIL 10 MG TABLET PO SCH (16:00)
[2018-08-13] MEDS: fentaNYL PF VIAL 100 MCG/2 ML VIAL IV PRN ×3 (16:12→16:49)
[2018-08-13] MEDS: MORPHINE SULFATE 2 MG/ML VIAL. IV PRN ×2 (16:38→17:01)
[2018-08-13] MEDS ORDERED: fentaNYL PF VIAL 100 MCG/2 ML VIAL ONE (16:47)
[2018-08-13] MEDS: HYDROmorphone 2 MG/ML VIAL IV PRN ×2 (17:01→17:12)
[2018-08-13 17:30] VITALS: BP 144/94
[2018-08-13 17:45] VITALS: BP 139/90
[2018-08-13 18:00] VITALS: BP 155/95
[2018-08-13] MEDS: oxyCODONE/APAP 5/325 1 TAB TABLET PO PRN ×2 (18:14→23:05)
[2018-08-13] MEDS: POTASSIUM CL 20MEQ D5-0.45NACL 1,000 ML IV SCH (18:14)
[2018-08-13 18:15] VITALS: BP 158/89
[2018-08-13 18:46] VITALS: BP 167/106
[2018-08-13] MEDS ORDERED: DOCUSATE SODIUM 100 MG CAPSULE. PO SCH (21:00)
[2018-08-13] MEDS ORDERED: ATORVASTATIN CALCIUM 20 MG TABLET PO SCH (21:00)
[2018-08-13] MEDS: GABAPENTIN 300 MG CAPSULE. PO SCH (21:09)
[2018-08-13] MEDS: METHOCARBAMOL 750 MG TABLET PO SCH (21:09)
[2018-08-13] MEDS: DOCUSATE SODIUM 100 MG CAPSULE. PO SCH (21:11)
[2018-08-13] MEDS: ceFAZolin SODIUM IV Push 1 GM VIAL. IVP SCH (21:12)
[2018-08-13] MEDS: METOPROLOL TART IMMED RELEASE 25 MG TABLET. PO SCH (21:12)
[2018-08-13 23:00] VITALS: BP 125/78
[2018-08-14 03:20] VITALS: BP 124/74
[2018-08-14 03:23] VITALS: BP 124/74
[2018-08-14] MEDS: POTASSIUM CL 20MEQ D5-0.45NACL 1,000 ML IV SCH (04:20)
[2018-08-14] MEDS: ceFAZolin SODIUM IV Push 1 GM VIAL. IVP SCH (04:29)
[2018-08-14] MEDS: oxyCODONE/APAP 5/325 1 TAB TABLET PO PRN (04:35)
[2018-08-14 05:46] VITALS: BP 144/72
[2018-08-14 06:17] VITALS: BP 124/74
[2018-08-14] MEDS: DOCUSATE SODIUM 100 MG CAPSULE. PO SCH (08:24)
[2018-08-14] MEDS: METHOCARBAMOL 750 MG TABLET PO SCH (08:24)
[2018-08-14] MEDS: GABAPENTIN 300 MG CAPSULE. PO SCH (08:25)
[2018-08-14] MEDS ORDERED: LISINOPRIL 20 MG TABLET PO SCH (09:00)
[2018-08-14] MEDS ORDERED: hydroCHLOROthiazide 12.5 MG CAPSULE PO SCH (09:00)
[2018-08-14] MEDS: METOPROLOL TART IMMED RELEASE 25 MG TABLET. PO SCH (09:00)
[2018-08-14] MEDS ORDERED: amLODIPine BESYLATE 10 MG TABLET PO SCH (09:00)
[2018-08-14] MEDS ORDERED: OXYC1TAB15 PO (10:11)
[2018-08-14] MEDS ORDERED: METH750T2 PO (10:11)
--- NOTE | 2018-08-14 10:13 | DISCH ---
DISCHARGE INSTRUCTIONS Condition on Discharge Condition on Discharge: Stable Activity After Discharge Activity Instructions for Disc: Activity as tolerated, Avoid exertion Bathing Instructions: No Tub Bath until see Lifting Instructions after Dis: No heavy lifting, No pulling or pushing, Do not lift >10 pounds Driving Instructions after Dis: Do not drive, Do not drive today Weight Bearing Status after Di: As tolerated Diet after Discharge Diet after Discharge: Regular Additional Diet Restrictions: resume home diet Diet Texture: Regular Swallowing Supervision: None needed Wound Incision Care Wound/Incision Care: Ice to area for comfort, Do not change dressing Other wound/incision instructi: may remove dressing in 48 hrs if dry then may shower, no soaking Checks after Discharge Checks after discharge: Check blood press - daily Contacting the DRRamona after DC Call your doctor for: Concerns you may have Follow-Up Follow up with: Dr. Hernandez's nurse in 2 weeks [phone] Treatment/Equipment after DC Adaptive Equipment Issued: Front wheeled walker MICHEAL HERNANDEZ MD August 14, 2018 10:13
[2018-08-14 11:17] VITALS: BP 123/71
--- NOTE | 2018-08-15 20:22 | OP ---
DATE OF SURGERY: 08/13/2018 PREOPERATIVE DIAGNOSES: Cervical spinal stenosis, C5-C6, C6-C7. POSTOPERATIVE DIAGNOSES: Cervical spinal stenosis, C5-C6, C6-C7. OPERATION PERFORMED: Cervical laminectomy, partial C4, C5, C6, C7 with lateral mass instrumentation C4, C5, C6, C7 and lateral mass fusion C4, C5, C6, C7. The operation was done with EMG monitoring, SSEP monitoring, motor evoked potentials, fluoroscopy, microscopic dissection. SURGEON: Miah Hernandez M.D. JET DYEING MACHINE TENDER: GLORIA Ocasio, assisted with the surgery. She assisted with the exposure, the placement of the hardware and fusion and laminectomy. OPERATIVE INDICATIONS: The patient is a very pleasant 67-year-old man who developed problems with both his cervical, thoracic and lumbar spine. He underwent an urgent thoracic operation for a herniated thoracic disc and did well from that. Now he presents for unsteadiness related to his severe cervical spinal stenosis. I spoke with him about the surgery and the risks involved. He understands and he wished to go ahead. DESCRIPTION OF PROCEDURE: Following general endotracheal anesthesia, the patient was positioned prone on the Ivan table in Gaspar pins. His posterior cervical region was then clipped, prepped and draped in standard fashion. ANDREWS hose and AV impulse boots were applied for DVT prophylaxis. A microscope was draped. Fluoroscopy was draped and brought into the field. Monitoring was established. Ancef 2 gram was given less than 1 hour prior to initiation of the surgery. Under fluoroscopic guidance, a midline posterior incision was made extending from C4 through inferior C7. I dissected down skin and subcutaneous tissue and reflected the paraspinal muscles and placed self-retaining retractors. I then using the high-speed air drill and using standard coordinates, I drilled small captain airline pilot openings in the C4 lateral mass, C5 lateral mass and C6 and C7 lateral masses. I then tilted the drill medially and inferiorly. I placed a 12 mm drill holes, 3.5 mm in diameter in these same places, first on the left side and on the right side. I followed this with 10 mm screws, which were then placed. I excoriated the facets at this point. I then placed the constantine and applied the nuts, which I then torqued again first on the left and the right side. Following this, again through the microscope, using the high speed air drill, I drilled troughs at C5, 6, and 7 bilaterally. I then trimmed across the midline at C7-T1 inferiorly, and at C4-C5 superiorly and then lifted and removed the lamina of C5, 6, and 7. I used the rongeur to trim the inferior spinous process of C4 and then high speed air drill to trim this further and carried my dissection superiorly with a 2.5 mm Kerrison and fully decompressed the region from the mid C4 through C7. Following this, I did lay Gelfoam in each lateral gutter. I did widen the laminectomy slightly with the 2 mm micro Kerrison. I had already torqued the nuts. I did trim some of the spinous process of the bone from the bone I removed and packed this into the facets bilaterally. I irrigated copiously with antibiotic solution. I closed the wound in layers with absorbable suture and the skin was closed with skin nallely. The patient was awakened uneventfully, taken to recovery room in excellent condition with normal strength in his extremities. I was quite pleased with the surgery. MIAH HERNANDEZ MD DR: THUY/kaye JOB#: [id number] / [id number] PEPE
--- NOTE | 2018-08-16 07:49 | RAD ---
EXAM: Cervical spine, 2 views. HISTORY: Laminectomy. COMPARISON: None. FINDINGS: 2 fluoroscopic images of the cervical spine are obtained. The cervical spine inferior to the superior aspect of C4 is not seen due to projection. There is degenerative endplate remodeling with disc space narrowing at C3-C4. The total fluoroscopy time is not submitted with the images. IMPRESSION: Limited fluoroscopic images of the cervical spine for procedural guidance. Electronically signed by: Mini Farmer MD (08/16/2018 7:46 AM) [facility]
--- NOTE | 2018-08-19 09:08 | PATHOLOGY ---
[facility] Accession Number: [id number] . 01 Material submitted: . vertebral column - CERVICAL DECOMPRESSION . 01 Clinical history: . Cervical stenosis . 02 Diagnosis: Segments of fibrocartilaginous, fibroadipose, and skeletal muscle tissue and bone, cervical decompression: - Focal degenerative changes of fibrocartilaginous tissue and segments of focally sclerotic bone. (JPM:recruitment director; 08/18/2018) MBR/08/18/2018 . 02 Comment: There is no evidence of an acute inflammatory process or malignancy. (JPM:rodri; 08/18/2018) . 02 Electronically signed: . Bernardino Conde MD, Pathologist NPI- [id number] . 01 Gross description: . The specimen is received in formalin, labeled "Candelario Gomez, cervical decompression", are multiple irregular fragments of dark brown-sam fibrous tissue and several segments of bones measuring 5.7 x 4.0 x 1.5 cm in aggregate. Starch Dumper tissue is submitted in A1 after decalcification. ([facility]; 08/14/2018) . . . . SHS/SHS . 02 Pathologist provided ICD-10: M50.30 . 02 CPT . 631936, [id number] Specimen Comment: A courtesy copy of this report has been sent to Specimen Comment: [phone]. Specimen Comment: Report sent to Performed at: 01 [facility] [address], [place] [id number] MD Ryan Sanchez MD Phone: [phone] Performed at: 02 [facility] [address] [place], [place] [id number] MD Bernardino Conde MD Phone: [phone]
--- NOTE | 2018-09-05 17:04 | DS ---
DATE OF DISCHARGE: 08/14/2018 DISCHARGE DIAGNOSES: Cervical spinal stenosis C5-C6, C6-C7. OPERATION PERFORMED: Cervical laminectomy, partial C4, C5, C6, C7 with lateral mass instrumentation C4 through C7 and lateral mass fusion C4 through C7. HISTORY OF PRESENT ILLNESS: The patient is a pleasant 67-year-old man who developed problems with both his cervical, thoracic and lumbar spine. He underwent an urgent thoracic operation for herniated thoracic disk and did well from that surgery. Now, he presents for unsteadiness related to severe cervical spinal stenosis. I spoke with him about the surgery and the risks involved. He understood and wished to go ahead. HOSPITAL COURSE: He was admitted to the floor postoperatively where he did well. He was up ambulating in the room and in the halls. Physical therapy was initiated and instruction was given to him regarding his activities. His pain is well controlled and he is in good condition and was discharged home. DISCHARGE MEDICATIONS: Resume the medications per the MRAD. DISCHARGE INSTRUCTIONS: He was instructed regarding incision care, activity restrictions and expectations for the next several weeks. He will follow up in our office in 2 weeks. He understands to call with any questions or concerns. MICHEAL HERNANDEZ MD DR: GUNNER/kaye JOB#: [id number] / [id number]
== END 2018-08-14 11:50 | disposition home or self-care (01) | DRG 472 ==
LOC: OPSVCIP 09:19 → 4 SOUTHEST 17:28
PROVIDERS: ADMIT Neurological Surgery; ATTEND Neurological Surgery
PROC: 01N10ZZ Release Cervical Nerve, Open Approach (ICD-10-PCS; 2018-08-13)
PROC: 4A11X4G Monitoring of Peripheral Nervous Electrical Activity, Intraoperative, External Approach (ICD-10-PCS; 2018-08-13)
PROC: 0RG20J1 Fusion of 2 or more Cervical Vertebral Joints with Synthetic Substitute, Posterior Approach, Posterior Column, Open Approach (ICD-10-PCS; principal; 2018-08-13 11:00)
DX: M48.02 Spinal stenosis, cervical region (principal); M51.04 Intervertebral disc disorders with myelopathy, thoracic region; N18.2 Chronic kidney disease, stage 2 (mild); I12.9 Hypertensive chronic kidney disease with stage 1 through stage 4 chronic kidney disease, or unspecified chronic kidney disease; M19.90 Unspecified osteoarthritis, unspecified site; Z79.899 Other long term (current) drug therapy; M48.061 Spinal stenosis, lumbar region without neurogenic claudication
CPT/HCPCS: 36415; 76000; 86850; 86900; 86901; 88304; 88311; A7015; C1713; J0690; J0696; J0780; J1100; J1170; J1885; J2270; J2405; J2704; J3010; J3490; J7030; J7120

== ENCOUNTER → 2018-11-03 | Outpatient (CLI) | payer MEDICARE, OTHER ==
[~2018-11-03] MED LIST changes: -BACITRACIN 50,000 UNIT in IV NORMAL SALINE 1000ML BAG 1,000 ML IRR ONE; -BUPIVAC MPF-EPI 0.5%-1:200000 30 ML VIAL. ONE; -GELATIN SPONGE SIZE 100. ONE; -IV RINGERS,LACTATED 1000ML 1,000 ML IV SCH; -KETOROLAC 60 MG/2 ML INJ FOR OR. ONE; +METH750T2 PO; -ONDANSETRON PF 4 MG/2 ML VIAL. IV PRN; +OXYC1TAB15 PO; -PROCHLORPERAZINE 10 MG/2 ML VIAL. IV PRN; -THROMBIN TOPICAL 20,000 UNIT SPRAY.SYRN KIT TP ONE; -fentaNYL PF VIAL 100 MCG/2 ML VIAL IV PRN
[2018-11-03 15:35] LABS: BASO % 1 % (0-3); EOS # 0.2 x10^3/uL (0.0-0.7); EOS % 4 % (0-3); HEMATOCRIT 42.3 % (39.0-53.0); HEMOGLOBIN 14.5 g/dL (13.0-17.5); LYMPH # 1.7 x10^3/uL (1.0-4.8); LYMPH % 26 % (24-48); MEAN CORPUSCULAR HEMOGLOBIN 32 pg (25-35); MEAN CORPUSCULAR HGB CONC 34 g/dL (31-37); MEAN CORPUSCULAR VOLUME 92 fL (79-100); MONO # 0.5 x10^3/uL (0.0-1.1); MONO % 7 % (0-9); NEUT # 4.2 x10^3/uL (1.8-7.7); NEUT % 63 % (31-73); PLATELET COUNT 143 x10^3/uL (140-400); RED BLOOD COUNT 4.59 x10^6/uL (4.30-5.70); RED CELL DISTRIBUTION WIDTH 13.2 % (11.5-14.5); WHITE BLOOD COUNT 6.7 x10^3/uL (4.0-11.0)
[2018-11-03 16:02] LABS: ALBUMIN 3.8 g/dL (3.4-5.0); ALBUMIN/GLOBULIN RATIO 1.2 (1.0-1.7); CALCIUM 8.6 mg/dL (8.5-10.1); CREATININE 1.1 mg/dL (0.7-1.3); GFR 66.8; POTASSIUM 3.8 mmol/L (3.5-5.1); TOTAL BILIRUBIN 0.4 mg/dL (0.2-1.0)
== END | disposition home or self-care (01) ==
LOC: SURGPAT 14:22
PROVIDERS: ATTEND Neurological Surgery
DX: Z01.818 Encounter for other preprocedural examination (principal); M51.16 Intervertebral disc disorders with radiculopathy, lumbar region; M48.062 Spinal stenosis, lumbar region with neurogenic claudication
CPT/HCPCS: 36415; 80053; 85025; 87641

== ENCOUNTER 2018-11-10 07:07 | Observation (INO) | payer MEDICARE, OTHER ==
--- NOTE | 2018-11-09 18:58 | HP ---
ADMIT DATE: 11/10/2018 HISTORY OF PRESENT ILLNESS: The patient is a pleasant 68-year-old man. He recently underwent a cervical laminectomy as well as a thoracic diskectomy. He is continuing to slowly improve. He does also have problems with severe lumbar spinal stenosis. He uses a cane when he must walk longer distances. He says lying on his back and sitting for any length of time are associated with pain and muscle spasms in his anterior thighs. CURRENT MEDICATIONS: Gabapentin, atorvastatin, atropine, hydrochlorothiazide, lisinopril, Meloxicam, metoprolol, multivitamin, amlodipine, fish oil. ALLERGIES: No known drug allergies. PAST MEDICAL HISTORY: Chronic kidney disease, permanent pacemaker, arthritis, hypertension. PAST SURGICAL HISTORY: Cervical surgery, thoracic decompression/diskectomy. FAMILY HISTORY: Noncontributory. SOCIAL HISTORY: . Employed. Nonsmoker. Drinks alcohol 1-2 times per year. REVIEW OF SYSTEMS: A 12-point review of systems was performed and is noncontributory except that mentioned above. PHYSICAL EXAMINATION GENERAL: Alert, pleasant, in no acute distress. HEAD: Normocephalic, atraumatic. NECK: Mild tenderness with palpation of the posterior cervical region, well-healed cervical and thoracic incisions. SKIN: Warm and dry. BACK: Mild tenderness of the lumbar spine with palpation. MUSCULOSKELETAL: Cervical and lumbar paraspinal muscle bulk is normal, range of motion of the upper and lower extremities is normal bilaterally. EXTREMITIES: No clubbing, cyanosis or edema. NEUROLOGIC: Alert and oriented x 3. Strength was 4+/5 hip flexion and knee extension and flexion were 5/5, ankle dorsiflexion and plantar flexion were 4/5, sensory was intact to light touch in the upper and lower extremities, reflexes were symmetric in the upper and lower extremities bilaterally, mildly unsteady gait. IMAGING DATA: I reviewed his previous lumbar myelogram. There is significant stenosis at L2-L3 with high grade central canal block at L3-L4, suggesting a disk herniation at that level. ASSESSMENT AND PLAN: At this point, the plan is for him to undergo a lumbar laminectomy at L2-L3 and L3-L4 with diskectomy at L3-L4. I did discuss with him the surgery as well as the risk and the expected postoperative course. He would like to go ahead. We are going to make the arrangements. MICHEAL Amaya HERNANDEZ MD DR: Mark JOB#: [id number] / [id number]
[~2018-11-10] VITALS: Ht 167.6 cm; Wt 88.9 kg
[2018-11-10] VITALS (9 sets, daily range): BP systolic 98–131; BP diastolic 59–98
[~2018-11-10 07:07] MED LIST changes: +BACITRACIN 50,000 UNIT in IV NORMAL SALINE 1000ML BAG 1,000 ML IRR ONE; +BUPIVAC MPF-EPI 0.5%-1:200000 30 ML VIAL. ONE; +HYDROmorphone 2 MG/ML VIAL IV PRN; +IV RINGERS,LACTATED 1000ML 1,000 ML IV SCH; +KETOROLAC 60 MG/2 ML INJ FOR OR. ONE; +LIDOCAINE 1% PF 2 ML VIAL. ID PRN; +MORPHINE SULFATE 2 MG/ML VIAL. IV PRN; +ONDANSETRON PF 4 MG/2 ML VIAL. IV PRN; +PROCHLORPERAZINE 10 MG/2 ML VIAL. IV PRN; +PROPOFOL 100 ML IV ONE; +fentaNYL PF VIAL 100 MCG/2 ML VIAL IV PRN
[2018-11-10] MEDS ORDERED: THROMBIN TOPICAL 5,000 UNIT VIAL. ONE (07:39)
[2018-11-10] MEDS ORDERED: fentaNYL PF VIAL 100 MCG/2 ML VIAL ONE ×2 (08:12→13:10)
[2018-11-10] MEDS ORDERED: REMIFENTANIL 2 MG VIAL. IV ONE (08:12)
[2018-11-10] MEDS ORDERED: GLYCOPYRROLATE 1 MG/5 ML VIAL. ONE (08:12)
[2018-11-10] MEDS ORDERED: DESFLURANE > 120 MINUTES IH ONE (08:12)
[2018-11-10] MEDS ORDERED: MIDAZOLAM HCL/PF 2 MG/2 ML VIAL. ONE (08:12)
[2018-11-10] MEDS ORDERED: LIDOCAINE 2% PF 5 ML VIAL. ONE (08:13)
[2018-11-10] MEDS ORDERED: DEXAMETHASONE SOD PHOS 4 MG/ML VIAL ONE (08:13)
[2018-11-10] MEDS ORDERED: NEOSTIGMINE METHYLSULFATE 5 MG/5 ML SYRINGE. ONE (08:13)
[2018-11-10] MEDS ORDERED: ONDANSETRON PF 4 MG/2 ML VIAL. ONE (08:13)
[2018-11-10] MEDS ORDERED: PROPOFOL 20 ML IV ONE (08:13)
[2018-11-10] MEDS ORDERED: ROCURONIUM 50 MG/5 ML VIAL. ONE (08:13)
[2018-11-10] MEDS ORDERED: ePHEDrine PF IN SALINE 50 MG/10 ML SYRINGE. IV ONE (08:20)
[2018-11-10] MEDS ORDERED: PHENYLEPHRINE 10 MG/ML VIAL. ONE (08:20)
[2018-11-10] MEDS ORDERED: THROMBIN TOPICAL 5,000 UNIT VIAL. TP ONE ×2 (09:25)
[2018-11-10] MEDS ORDERED: GELATIN SPONGE SIZE 12-7MM SPONGE. TP ONE (09:25)
[2018-11-10] MEDS ORDERED: ceFAZolin 2GM PREMIX 2 GM/50 ML BAG IV ONE (10:00)
[2018-11-10] MEDS ORDERED: PROPOFOL 50 ML IV ONE (10:53)
[2018-11-10] MEDS ORDERED: REMIFENTANIL 1 MG VIAL. IV ONE (10:54)
[2018-11-10] MEDS ORDERED: IV NORMAL SALINE 1000ML BAG 1,000 ML IV SCH (12:28)
[2018-11-10] MEDS ORDERED: MAGNESIUM HYDROXIDE 2,400 MG/30 ML ORAL.SUSP. PO PRN ×2 (12:30)
[2018-11-10] MEDS ORDERED: MAG HYDROX/ALUMINUM HYD/SIMETH 30 ML ORAL.SUSP PO PRN (12:30)
[2018-11-10] MEDS ORDERED: oxyCODONE/APAP 5/325 1 TAB TABLET PO PRN (12:30)
[2018-11-10] MEDS ORDERED: 0.9 % SODIUM CHLORIDE 10 ML DISP.SYRIN. IV PRN (12:30)
[2018-11-10] MEDS ORDERED: diphenhydrAMINE HCL 25 MG CAPSULE PO PRN (12:30)
[2018-11-10] MEDS ORDERED: ZOLPIDEM 5 MG TABLET. PO PRN (12:30)
[2018-11-10] MEDS ORDERED: CALCIUM CARBONATE 500 MG TAB.CHEW PO PRN ×2 (12:30)
[2018-11-10] MEDS ORDERED: ONDANSETRON PF 4 MG/2 ML VIAL. IV PRN (12:30)
[2018-11-10] MEDS ORDERED: ACETAMINOPHEN 325 MG TABLET. PO PRN ×2 (12:30)
[2018-11-10] MEDS ORDERED: fentaNYL PF VIAL 100 MCG/2 ML VIAL IV PRN (12:30)
[2018-11-10] MEDS ORDERED: NALOXONE 0.4 MG/ML VIAL. IV PRN (12:30)
[2018-11-10] MEDS ORDERED: POLYETHYLENE GLYCOL 3350 17 GM PACKET. PO PRN (13:09)
[2018-11-10] MEDS: GABAPENTIN 300 MG CAPSULE. PO SCH ×2 (14:00→21:00)
[2018-11-10] MEDS: METHOCARBAMOL 750 MG TABLET PO SCH ×2 (14:00→21:01)
--- NOTE | 2018-11-10 14:00 | NUR ---
Admitted to unit by bed from PACU. Alert and oriented x's 4. Moves all extremities without difficulty. Dressing saturated and reinforced it with ABD dressing and placed ice pack midback. IVF's intact and infusing. ANDREWS's and STIVEN's on bilaterally. Oriented to room and controls. Side rails up x's 2 with call light in reach.
--- NOTE | 2018-11-10 14:25 | NUR ---
Both gabapentin and Robaxin held due pt not wanting to eat or drink fluids at this time.
--- NOTE | 2018-11-10 15:20 | NUR ---
Ambulated down hallway and back with steady gait. Used gait belt and cane. Up in chair. Placed new ice pack to lower back. at his side. Cont. monitor.
[2018-11-10] MEDS ORDERED: LISINOPRIL 10 MG TABLET PO SCH (16:00)
[2018-11-10] MEDS: POTASSIUM CL 20MEQ D5-0.45NACL 1,000 ML IV SCH ×2 (18:24→19:13)
--- NOTE | 2018-11-10 18:25 | NUR ---
IVF's dc'd, taking po fluids well.
[2018-11-10] MEDS ORDERED: ATORVASTATIN CALCIUM 20 MG TABLET PO SCH (21:00)
[2018-11-10] MEDS: METOPROLOL TART IMMED RELEASE 25 MG TABLET. PO SCH (21:00)
[2018-11-10] MEDS ORDERED: DOCUSATE SODIUM 100 MG CAPSULE. PO SCH (21:00)
[2018-11-10] MEDS: DOCUSATE SODIUM 100 MG CAPSULE. PO SCH (21:00)
[2018-11-10] MEDS: HYDROcodone/APAP 7.5/325MG 1 TAB TABLET PO PRN (21:00)
[2018-11-11] MEDS: HYDROcodone/APAP 7.5/325MG 1 TAB TABLET PO PRN ×3 (01:35→13:03)
[2018-11-11 02:30] VITALS: BP 107/58
[2018-11-11 06:14] VITALS: BP 125/62
--- NOTE | 2018-11-11 06:30 | NUR ---
Dangling at bedside. Attempted to stand, legs too weak and "crampy" to walk on yet. Lortab given po. Drinking coffee w/o N/V. Surgical dressing D/I.
[2018-11-11] MEDS: DOCUSATE SODIUM 100 MG CAPSULE. PO SCH (08:22)
[2018-11-11] MEDS: METHOCARBAMOL 750 MG TABLET PO SCH ×2 (08:22→13:29)
[2018-11-11] MEDS: GABAPENTIN 300 MG CAPSULE. PO SCH ×2 (08:22→13:29)
[2018-11-11] MEDS: METOPROLOL TART IMMED RELEASE 25 MG TABLET. PO SCH (08:23)
[2018-11-11 08:24] VITALS: BP 107/54
[2018-11-11] MEDS ORDERED: LISINOPRIL 20 MG TABLET PO SCH (09:00)
[2018-11-11] MEDS ORDERED: hydroCHLOROthiazide 12.5 MG CAPSULE PO SCH (09:00)
[2018-11-11] MEDS ORDERED: amLODIPine BESYLATE 10 MG TABLET PO SCH (09:00)
--- NOTE | 2018-11-11 09:00 | NUR ---
states he is feeling better but continues to have spasms especially after sitting for more than 30 minutes. we have ambulated in the hallway every 30 minutes. he is rating his incisional pain 2-3. here. demonstrated dressing change; she verbalized understanding of these instructions. he has had 2 previous back surgeries and is familiar with restrictions.
[2018-11-11 11:06] VITALS: BP 102/64
[2018-11-11] MEDS ORDERED: HYDR-2765 PO (13:02)
--- NOTE | 2018-11-11 13:04 | DISCH ---
DISCHARGE INSTRUCTIONS Condition on Discharge Condition on Discharge: Stable Activity After Discharge Activity Instructions for Disc: Avoid exertion, Walk in house Other activity instructions: ambulation only exercise; gradually increae time and distance Bathing Instructions: Shower-keep dressing dry, No Tub Bath until see Lifting Instructions after Dis: No heavy lifting, No pulling or pushing, Do not lift >10 pounds Exercise Instruction after Dis: Progress as tolerated Driving Instructions after Dis: No driving for 2 weeks Weight Bearing Status after Di: No restrictions, Full weight bearing, As tolerated Diet after Discharge Diet after Discharge: Regular Additional Diet Restrictions: resume home diet Diet Texture: Regular Liquid Texture: Thin Liquid Swallowing Supervision: None needed Wound Incision Care Wound/Incision Care: Ice to area for comfort, Keep wound/cast CDI, Change dressing Other wound/incision instructi: may shower 48 hrs after surgery; NO direct water antibiotic cream to incisi Wound Care Equipment: Dressings Checks after Discharge Checks after discharge: Check blood press - daily DC Comment: increase fruits, vegetables and fiber; attempt BM every 2-3 days Contacting the after DC Call your doctor for: Concerns you may have Follow-Up Follow Up With: call [phone] for a 2 week post op appt with Dr. Hernandez's nurse Treatment/Equipment after DC Adaptive Equipment Issued: None MICHEAL HERNANDEZ MD Nov 11, 2018 13:04
--- NOTE | 2018-11-11 13:45 | NUR ---
reviewed written instructions discharge with and Nikko. verbalized understanding the restrictions to activities of daily living. he has a blood pressure machine at home; instructed to take blood pressure prior to taking medications (blood pressure) because we have held them today; v/u. reviewed new medications of pain pill, muscle relaxant and steroid. saline lock removed. supplies for dressing changes given. dismissed to home.
--- NOTE | 2018-11-11 15:21 | PDOC ---
PROGRESS NOTES Subjective Subjective POD #1 some pain and intermittent spasms in LE ambulating in halls frequently Objective Objective Vital Signs Date Time Temp Pulse Resp B/P (MAP) Pulse Ox O2 Delivery O2 Flow Rate FiO2 11/11/18 13:03 20 Room Air 11/11/18 11:06 97.9 54 102/64 (77) 97.9 11/11/18 06:14 97 11/10/18 13:18 10.0 Intake and Output 11/11/18 06:59 Intake Total 3400 ml Balance 3400 ml Intake Oral 1750 ml IV Total 1650 ml # Voids 3 Physical Exam General: Alert, Oriented X3, Cooperative, No acute distress MUSCULOSKELETAL: Other (SUN) Neuro: Normal speech (dressing C,D,I) Assessment Assessment Problems Medical Problems: (1) Spinal stenosis of lumbar region with neurogenic claudication Status: Chronic Plan Plan of Care ok to dc home f/u 2 weeks Comment Review of Relevant I have reviewed the following items khanh (where applicable) has been applied. Medications Current Medications Ondansetron HCl (Zofran) 4 mg PRN Q6HRS PRN IV NAUSEA/VOMITING; Start 11/10/18 at 07:00; Stop 11/11/18 at 07:00; Status DC Fentanyl Citrate (Fentanyl 2ml Vial) 25 mcg PRN Q5MIN PRN IV MILD PAIN 1-3; Start 11/10/18 at 07:00; Stop 11/11/18 at 07:00; Status DC Fentanyl Citrate (Fentanyl 2ml Vial) 50 mcg PRN Q5MIN PRN IV MODERATE TO SEVERE PAIN Last administered on 11/10/18at 13:18; Start 11/10/18 at 07:00; Stop 11/11/18 at 07:00; Status DC Morphine Sulfate (Morphine Sulfate) 1 mg PRN Q10MIN PRN IV SEVERE PAIN 7-10; Start 11/10/18 at 07:00; Stop 11/11/18 at 07:00; Status DC Ringer's Solution 1,000 ml @ 30 mls/hr Q24H IV Last administered on 11/10/18at 07:58; Start 11/10/18 at 07:00; Stop 11/10/18 at 18:59; Status DC Lidocaine HCl (Xylocaine-Mpf 1% 2ml Vial) 2 ml PRN 1X PRN ID PRIOR TO IV START; Start 11/10/18 at 07:00; Stop 11/11/18 at 07:00; Status DC Hydromorphone HCl (Dilaudid) 0.5 mg PRN Q10MIN PRN IV SEV PAIN, Second choice; Start 11/10/18 at 07:00; Stop 11/11/18 at 07:00; Status DC Prochlorperazine Edisylate (Compazine) 5 mg PACU PRN PRN IV NAUSEA, MRX1; Start 11/10/18 at 07:00; Stop 11/11/18 at 07:00; Status DC Bacitracin 87528 unit/Sodium Chloride 1,000 ml @ 1,000 mls/hr 1X ONCE IRR Last administered on 11/10/18at 09:27; Start 11/10/18 at 06:00; Stop 11/10/18 at 06:59; Status DC Cefazolin Sodium/ Dextrose 50 ml @ 100 mls/hr 1X PREOP PRN IV PRIOR TO PROCEDURE Last administered on 11/10/18at 08:57; Start 11/10/18 at 06:00; Stop 11/10/18 at 18:00; Status DC Bupivacaine HCl/ Epinephrine Bitart (Sensorcain-Mpf Epi 0.5%-1:012572) 30 ml STK-MED ONCE .ROUTE Last administered on 11/10/18at 09:25; Start 11/10/18 at 06:32; Stop 11/10/18 at 07:32; Status DC Ketorolac Tromethamine (Toradol For Or Only) 60 mg STK-MED ONCE .ROUTE Last administered on 11/10/18at 09:25; Start 11/10/18 at 06:32; Stop 11/10/18 at 07:32; Status DC Thrombin (Thrombin Topical) 5,000 unit STK-MED ONCE .ROUTE ; Start 11/10/18 at 07:39; Stop 11/10/18 at 07:40; Status DC Propofol 100 ml @ As Directed STK-MED ONCE IV ; Start 11/10/18 at 07:03; Stop 11/10/18 at 08:03; Status DC Desflurane (Suprane) 90 ml STK-MED ONCE IH ; Start 11/10/18 at 08:12; Stop 11/10/18 at 08:13; Status DC Midazolam HCl (Versed) 2 mg STK-MED ONCE .ROUTE ; Start 11/10/18 at 08:12; Stop 11/10/18 at 08:13; Status DC Fentanyl Citrate (Fentanyl 2ml Vial) 100 mcg STK-MED ONCE .ROUTE ; Start 11/10/18 at 08:12; Stop 11/10/18 at 08:13; Status DC Remifentanil HCl (Ultiva) 2 mg STK-MED ONCE IV ; Start 11/10/18 at 08:12; Stop 11/10/18 at 08:13; Status DC Glycopyrrolate (Robinul) 1 mg STK-MED ONCE .ROUTE ; Start 11/10/18 at 08:12; Stop 11/10/18 at 08:13; Status DC Neostigmine Methylsulfate (Neostigmine Methylsulfate) 5 mg STK-MED ONCE .ROUTE ; Start 11/10/18 at 08:13; Stop 11/10/18 at 08:14; Status DC Rocuronium [place] (Zemuron) 50 mg STK-MED ONCE .ROUTE ; Start 11/10/18 at 08:13; Stop 11/10/18 at 08:14; Status DC Propofol 20 ml @ As Directed STK-MED ONCE IV ; Start 11/10/18 at 08:13; Stop 11/10/18 at 08:14; Status DC Lidocaine HCl (Lidocaine Pf 2% Vial) 5 ml STK-MED ONCE .ROUTE ; Start 11/10/18 at 08:13; Stop 11/10/18 at 08:14; Status DC Dexamethasone Sodium Phosphate (Decadron) 4 mg STK-MED ONCE .ROUTE ; Start at 08:13; Stop 11/10/18 at 08:14; Status DC Ondansetron HCl (Zofran) 4 mg STK-MED ONCE .ROUTE ; Start 11/10/18 at 08:13; Stop 11/10/18 at 08:14; Status DC Phenylephrine HCl (David-Synephrine Inj) 10 mg STK-MED ONCE .ROUTE ; Start 11/10/18 at 08:20; Stop 11/10/18 at 08:21; Status DC Ephedrine Sulfate (ePHEDrine PF IN SALINE SYRINGE) 50 mg STK-MED ONCE IV ; Start 11/10/18 at 08:20; Stop 11/10/18 at 08:21; Status DC Thrombin (Thrombin Topical) 5,000 unit STK-MED ONCE TP Last administered on 11/10/18at 09:25; Start 11/10/18 at 09:25; Stop 11/10/18 at 09:36; Status DC Thrombin (Thrombin Topical) 5,000 unit STK-MED ONCE TP Last administered on 11/10/18at 09:25; Start 11/10/18 at 09:25; Stop 11/10/18 at 09:36; Status DC Gelatin (Gelfoam Size 12-7mm) 1 each STK-MED ONCE TP Last administered on 11/10/18at 09:25; Start 11/10/18 at 09:25; Stop 11/10/18 at 09:36; Status DC Propofol 50 ml @ As Directed STK-MED ONCE IV ; Start 11/10/18 at 10:53; Stop 11/10/18 at 10:54; Status DC Remifentanil HCl (Ultiva) 1 mg STK-MED ONCE IV ; Start 11/10/18 at 10:54; Stop 11/10/18 at 10:55; Status DC Acetaminophen (Tylenol) 650 mg PRN Q6HRS PRN PO Headaches, Temp > 101.5F; Start 11/10/18 at 12:30 Amlodipine Besylate (Norvasc) 10 mg DAILY PO ; Start 11/11/18 at 09:00 Atorvastatin Calcium (Lipitor) 20 mg QHS PO Last administered on 11/10/18at 21:01; Start 11/10/18 at 21:00 Calcium Carbonate/ Glycine (Tums) 500 mg PRN Q3HRS PRN PO UPSET STOMACH; Start 11/10/18 at 12:30 Docusate Sodium (Colace) 100 mg BID PO Last administered on 11/11/18at 08:22; Start 11/10/18 at 21:00 Gabapentin (Neurontin) 300 mg TID PO Last administered on 11/11/18at 13:29; Start 11/10/18 at 14:00 Lisinopril (Prinivil) 10 mg DAILY16 PO Last administered on 11/10/18at 16:59; Start 11/10/18 at 16:00 Lisinopril (Prinivil) 20 mg DAILY PO ; Start 11/11/18 at 09:00 Magnesium Hydroxide (Milk Of Magnesia) 2,400 mg PRN Q12HR PRN PO CONSTIPATION; Start 11/10/18 at 12:30 Metoprolol Tartrate (Lopressor) 25 mg BID PO Last administered on 11/11/18at 08:23; Start 11/10/18 at 21:00 Oxycodone/ Acetaminophen (Percocet 5/325) 1 tab PRN Q4HRS PRN PO MILD PAIN 1-3 Last administered on 11/10/18at 17:00; Start 11/10/18 at 12:30 Hydrochlorothiazide (Microzide) 12.5 mg DAILY PO ; Start 11/11/18 at 09:00 Methocarbamol (Robaxin) 750 mg TID PO Last administered on 11/11/18at 13:29; Start 11/10/18 at 14:00 Polyethylene Glycol (miraLAX PACKET) 17 gm PRN BID PRN PO CONSTIPATION; Start 11/10/18 at 13:09 Acetaminophen (Tylenol) 650 mg PRN Q6HRS PRN PO MILD PAIN / TEMP; Start 11/10/18 at 12:30; Status UNV Al Hydroxide/Mg Hydroxide (Mylanta Plus Xs) 30 ml PRN Q3HRS PRN PO HEARTBURN / GAS; Start 11/10/18 at 12:30 Calcium Carbonate/ Glycine (Tums) 500 mg PRN Q3HRS PRN PO INDIGESTION; Start 11/10/18 at 12:30; Status UNV Diphenhydramine HCl (Benadryl) 25 mg PRN Q6HRS PRN PO ITCHING; Start 11/10/18 at 12:30 Zolpidem Tartrate (Ambien) 5 mg PRN QHS PRN PO INSOMNIA, MAY REPEAT IN 1HR; Start 11/10/18 at 12:30 Naloxone HCl (Narcan) 0.1 mg PRN Q2MIN PRN IV ADMIN; Start 11/10/18 at 12:30 Sodium Chloride (Normal Saline Flush) 3 ml QSHIFT PRN IV AFTER MEDS AND BLOOD DRAWS; Start 11/10/18 at 12:30 Potassium Chloride/Dextrose/ Sod Cl 1,000 ml @ 75 mls/hr [id number] IV ; Start 11/10/18 at 14:00; Stop 11/10/18 at 19:14; Status DC Sodium Chloride 1,000 ml @ 25 mls/hr Q24H IV ; Start 11/10/18 at 12:28; Status UNV Docusate Sodium (Colace) 100 mg BID PO ; Start 11/10/18 at 21:00; Status UNV Magnesium Hydroxide (Milk Of Magnesia) 2,400 mg PRN Q12HR PRN PO CONSTIPATION; Start 11/10/18 at 12:30; Status UNV Ondansetron HCl (Zofran) 4 mg PRN Q6HRS PRN IV NAUESA, 1ST CHOICE; Start 11/10/18 at 12:30 Fentanyl Citrate (Fentanyl 2ml Vial) 50 mcg PRN Q2HR PRN IV SEVERE PAIN; Start 11/10/18 at 12:30 Fentanyl Citrate (Fentanyl 2ml Vial) 100 mcg STK-MED ONCE .ROUTE ; Start 11/10/18 at 13:10; Stop 11/10/18 at 13:11; Status DC Acetaminophen/ Hydrocodone Bitart (Lortab 7.5/325) 1 tab PRN Q4HRS PRN PO MODERATE PAIN Last administered on 11/11/18at 13:03; Start 11/10/18 at 17:15 Cefazolin Sodium/ Dextrose (Ancef 2gm Premix) 2 gm STK-MED ONCE IV ; Start 11/10/18 at 10:00; Stop 11/11/18 at 12:09; Status DC Active Scripts Active Hydrocodone-Apap 7.5-325 (Hydrocodone Bit/Acetaminophen) 1 Tab Tablet 1 Tab PO PRN Q4HRS PRN Methocarbamol 750 Mg Tablet 750 Mg PO TID Polyethylene Glycol 3350 17 Gm Powd.pack 17 Gm PO PRN BID PRN 30 Days Milk Of Magnesia (Magnesium Hydroxide) 400 Mg/5 Ml Oral.susp 2,400 Mg PO PRN Q12HR PRN 30 Days Colace (Docusate Sodium) 100 Mg Capsule 100 Mg PO BID 30 Days Calcium Carbonate 200 Mg Tab.chew 500 Mg PO PRN Q3HRS PRN 30 Days Tylenol (Acetaminophen) 325 Mg Tablet 650 Mg PO PRN Q6HRS PRN 30 Days Reported Hydrochlorothiazide 12.5 Mg Capsule 12.5 Mg PO DAILY Lisinopril 10 Mg Tablet 1 Tab PO DAILY16 Lisinopril 20 Mg Tablet 1 Tab PO DAILY Metoprolol Tartrate 25 Mg Tablet 1 Tab PO BID Gabapentin (Gabapentin) 300 Mg Capsule 300 Mg PO TID Atorvastatin Calcium 20 Mg Tablet 1 Tab PO DAILY Amlodipine Besylate 5 Mg Tablet 10 Mg PO DAILY Vitals/I & O Vital Sign - Last 24 Hours 11/10/18 11/10/18 11/10/18 11/10/18 15:20 15:50 16:50 16:59 Pulse 89 99 94 94 Resp 18 18 18 B/P (MAP) 115/80 (92) 126/90 (102) 131/98 (109) 131/98 Pulse Ox 91 94 95 O2 Delivery Room Air Room Air Room Air 11/10/18 11/10/18 11/10/18 11/10/18 17:00 18:00 18:23 19:38 Pulse 99 Resp 18 B/P (MAP) 115/80 (92) Pulse Ox 94 O2 Delivery Room Air Room Air Room Air Room Air 11/10/18 11/10/18 11/10/18 11/11/18 21:00 21:00 22:35 01:35 Temp 97.8 97.8 Pulse 89 56 Resp 20 16 20 B/P (MAP) 115/80 98/59 (72) Pulse Ox 96 O2 Delivery Room Air Room Air Room Air 11/11/18 11/11/18 11/11/18 11/11/18 02:30 02:53 06:13 06:14 Temp 98.7 97.9 98.7 97.9 Pulse 59 79 Resp 16 24 22 B/P (MAP) 107/58 (74) 125/62 (83) Pulse Ox 100 97 O2 Delivery Room Air BiPAP/CPAP Room Air Room Air 11/11/18 11/11/18 11/11/18 11/11/18 07:15 07:18 08:23 08:24 Pulse 72 72 Resp 16 16 B/P (MAP) 107/54 107/54 (71) O2 Delivery Room Air Room Air 11/11/18 11/11/18 11/11/18 11/11/18 09:00 09:00 11:06 13:03 Temp 97.9 97.9 Pulse 54 54 54 Resp 20 20 B/P (MAP) 102/64 102/64 102/64 (77) O2 Delivery Room Air Room Air Intake and Output 11/10/18 11/10/18 11/11/18 14:59 22:59 06:59 Intake Total 1650 ml 650 ml 1100 ml Balance 1650 ml 650 ml 1100 ml FINN BRUMFIELD HOUSEKEEPING COORDINATOR Nov 11, 2018 15:21
--- NOTE | 2018-11-12 14:07 | PATHOLOGY ---
[facility] Accession Number: [id number] . 01 Material submitted: . vertebral column - LUMBAR DISC AND DECOMPRESSION . 01 Clinical history: . Lumbar stenosis and neurogenic claudication, herniated disc and radiculopathy . 02 Diagnosis: Segments of fibrocartilaginous, adipose, and skeletal muscle tissue and bone, lumbar disc and decompression: - Degenerative changes of fibrocartilagionous tissue. (JPM:jaleesa; 11/12/2018) QMS/11/12/2018 . 02 Comment: There is no evidence of an acute inflammatory process or malignancy. (JPM:jaleesa; 11/12/2018) . 02 Electronically signed: . Bernardino Conde MD, Pathologist NPI- [id number] . 01 Gross description: . Received in formalin labeled "Candelario Gomez, lumbar disc and decompression," are multiple segments of hsieh-white rubbery and gritty tissue measuring 8.3 x 6.4 x 5.9 cm in aggregate dimensions, containing small fragments of possible bone. The tissue is submitted representatively in cassette A1 and A2, following decalcification. (TSD; 11/10/2018) TOB/TOB . 02 Pathologist provided ICD-10: M51.36 . 02 CPT . 935791, [id number] Specimen Comment: A courtesy copy of this report has been sent to Specimen Comment: [phone]. Specimen Comment: Report sent to Performed at: 01 [facility] [address], [place] [id number] MD Ryan Sanchez MD Phone: [phone] Performed at: 02 [facility] [id number] MD Bernardino Conde MD Phone: [phone]
--- NOTE | 2018-11-13 19:20 | OP ---
DATE OF SURGERY: 11/10/2018 PREOPERATIVE DIAGNOSIS: Severe lumbar spinal stenosis, L2-L3, L3-L4 with neurogenic claudication. POSTOPERATIVE DIAGNOSIS: Severe lumbar spinal stenosis, L2-L3, L3-L4 with neurogenic claudication. OPERATIONS PERFORMED: 1. Lumbar laminectomy, L2-L3 and L3-L4. 2. Lumbar microdiscectomy, L3-L4. The operation was done with EMG monitoring, SSEP monitoring, fluoroscopy and microscopic dissection. SURGEON: Miah Hernandez M.D. EMPLOYMENT CASE MANAGER: LIA Foreman OPERATIVE INDICATIONS: The patient is a pleasant 68-year-old man who developed significant problems with both cervical and thoracic stenosis as well as lumbar spinal stenosis. He has had surgery in the cervical region and the thoracic region, has improved significantly; however, he does have a complete block at L3-L4 and a virtual complete block at L2-L3 on the myelographic studies. I recommended laminectomy to help to decompress these regions. I spoke with him about the surgery and the risks. He understood and he wished to go ahead. DESCRIPTION OF PROCEDURE: Following general endotracheal anesthesia, the patient was positioned prone on the Ivan table. Lumbar region prepped and draped in a standard fashion. The patient was placed prone on the Joe frame. His lumbar region was prepped and draped in a standard fashion. ANDREWS hose and AV impulse boots were applied for DVT prophylaxis. The microscope was draped. Fluoroscopy was draped and brought into the field. Monitoring was established. Ancef 2 grams given less than 1 hour prior to the initiation of the surgery. Using fluoroscopic guidance, incision was made from superior L2 to inferior L4, dissected down through skin and subcutaneous tissue and reflected the paraspinal muscles and placed self-retaining retractors, brought in the high-speed air drill with a conical branden and drilled away the spinous processes and a portion of the lamina of L2, L3 and L4. I then used the high-speed air drill with a matchstick-type branden and continued my bone work and removed the lamina of L2, much of L3 and most of L4, especially significantly above the L2-L3 and L3-L4 disc spaces. At L2-L3, then, I peeled away thickened ligamentum flavum bilaterally from both left and right sides. I worked quite far laterally. I could visualize the exiting L3 root and perform partial foraminotomies. I palpated the disc, which was bulging slightly, but very firm and no discectomy was warranted. This region was then fully decompressed. I went down to L3-L4 in a similar fashion, drilled widely and exposed the ligamentum flavum, which I peeled away and then, the L4 roots were well visualized. At this level, there was a large significant posterior disc bulge, which was partly calcified. I gently retracted the root medially and I entered the disc space and trimmed much of this disc material away, especially from the left side, and then as I worked and removed disc fragments, the large bulge decreased in size and the pressure in the dura markedly decreased. At this point, then I explored carefully. I did use bone wax for hemostasis as well as bipolar cautery and a wide decompression at both regions. I did confirm my position, my exposure frequently fluoroscopically. I irrigated copiously with antibiotic solution. I removed the retractors, obtained hemostasis in the muscle, irrigated again and I closed the wound with absorbable sutures and skin was closed with 4-0 subcuticular stitch. I felt the surgery went very well. MIAH HERNANDEZ MD DR: THUY/kaye JOB#: [id number] / [id number] PEPE
== END 2018-11-11 14:00 | disposition home or self-care (01) ==
LOC: SURG 07:07 → 4 SOUTHEST 13:15
PROVIDERS: ADMIT Neurological Surgery; ATTEND Neurological Surgery
DX: M48.062 Spinal stenosis, lumbar region with neurogenic claudication (principal); M19.90 Unspecified osteoarthritis, unspecified site; I12.9 Hypertensive chronic kidney disease with stage 1 through stage 4 chronic kidney disease, or unspecified chronic kidney disease; N18.9 Chronic kidney disease, unspecified; M48.04 Spinal stenosis, thoracic region; Z95.0 Presence of cardiac pacemaker; Z98.890 Other specified postprocedural states
CPT/HCPCS: 63047; 63048; 76000; 88304; 88311; 97116; 97162; 97530; A7015; G0378; G0379; J0171; J0696; J1100; J1885; J2001; J2250; J2405; J2704; J2710; J3010; J3490; J7030; J7120

== ENCOUNTER → 2019-06-01 | Outpatient (CLI) | payer MEDICARE, OTHER ==
[~2019-06-01] MED LIST changes: -BACITRACIN 50,000 UNIT in IV NORMAL SALINE 1000ML BAG 1,000 ML IRR ONE; +BACL10TA PO; -BUPIVAC MPF-EPI 0.5%-1:200000 30 ML VIAL. ONE; +CHOL40003 PO; +CYAN100031 PO; +DICL100G18 TP; +HYDR-2765 PO; -HYDROmorphone 2 MG/ML VIAL IV PRN; -IV RINGERS,LACTATED 1000ML 1,000 ML IV SCH; -KETOROLAC 60 MG/2 ML INJ FOR OR. ONE; -LIDOCAINE 1% PF 2 ML VIAL. ID PRN; -MORPHINE SULFATE 2 MG/ML VIAL. IV PRN; -ONDANSETRON PF 4 MG/2 ML VIAL. IV PRN; -PROCHLORPERAZINE 10 MG/2 ML VIAL. IV PRN; -PROPOFOL 100 ML IV ONE; -fentaNYL PF VIAL 100 MCG/2 ML VIAL IV PRN
[2019-06-01 09:37] LABS: BASO % 1 % (0-3); EOS # 0.2 x10^3/uL (0.0-0.7); EOS % 4 % (0-3); HEMATOCRIT 43.2 % (39.0-53.0); HEMOGLOBIN 14.8 g/dL (13.0-17.5); LYMPH # 1.3 x10^3/uL (1.0-4.8); LYMPH % 21 % (24-48); MEAN CORPUSCULAR HEMOGLOBIN 32 pg (25-35); MEAN CORPUSCULAR HGB CONC 34 g/dL (31-37); MEAN CORPUSCULAR VOLUME 92 fL (79-100); MONO # 0.6 x10^3/uL (0.0-1.1); MONO % 10 % (0-9); NEUT % 64 % (31-73); PLATELET COUNT 202 x10^3/uL (140-400); WHITE BLOOD COUNT 6.2 x10^3/uL (4.0-11.0)
[2019-06-01 09:40] LABS: ALBUMIN 3.9 g/dL (3.4-5.0); CALCIUM 9.5 mg/dL (8.5-10.1); CREATININE 1.1 mg/dL (0.7-1.3); GFR 66.8
[2019-06-01 09:56] LABS: PROTHROMBIN TIME PATIENT 13.3 SEC (11.7-14.0)
--- NOTE | 2019-06-02 07:50 | RAD ---
CHEST PA LATERAL History: Sleep apnea, presurgical evaluation Comparison: None. Findings: Frontal and lateral views of the chest were obtained. Postoperative changes of cervical spine noted. Left sided pacemaker with single lead noted terminating in the right ventricle. The cardiomediastinal silhouette is normal. Pulmonary vasculature is normal. The lungs are clear. No pleural effusion or pneumothorax is seen. There is no acute bone abnormality. Degenerative disc space narrowing of the lower thoracic spine noted. IMPRESSION: No acute cardiopulmonary process. Electronically signed by: William Frazier MD (06/02/2019 7:47 AM) [facility]
== END | disposition home or self-care (01) ==
LOC: SURGPAT 13:09
PROVIDERS: ATTEND Orthopaedic Surgery
DX: Z01.818 Encounter for other preprocedural examination (principal); M17.0 Bilateral primary osteoarthritis of knee; G47.30 Sleep apnea, unspecified; M48.04 Spinal stenosis, thoracic region; Z95.0 Presence of cardiac pacemaker
CPT/HCPCS: 36415; 71046; 80048; 82040; 82306; 83036; 85025; 85610; 85651; 85730; 87641

== ENCOUNTER 2019-06-23 06:26 | Inpatient (IN) | payer MEDICARE, OTHER ==
[~2019-06-23] VITALS: Ht 170.2 cm; Wt 83.9 kg
[2019-06-23] VITALS (8 sets, daily range): BP systolic 103–123; BP diastolic 62–80
[~2019-06-23 06:26] MED LIST changes: +ACETAMINOPHEN 500 MG TABLET PO PRN; +GABAPENTIN 300 MG CAPSULE. PO PRN; +MELOXICAM 7.5 MG TABLET PO PRN; +MORPHINE SULFATE 5 MG, KETOROLAC 30MG VIAL 30 MG, ROPIVacaine 0.5% PF 60 ML, EPINEPHrin... INT ART ONE; +TRANEXAMIC ACID 1,000 MG in IV NS 50ML -- 1ST BAG INJ ONE
[2019-06-23] MEDS ORDERED: PROCHLORPERAZINE 10 MG/2 ML VIAL. IV PRN (07:00)
[2019-06-23] MEDS ORDERED: HYDROmorphone 2 MG/ML VIAL IV PRN (07:00)
[2019-06-23] MEDS ORDERED: fentaNYL PF VIAL 100 MCG/2 ML VIAL IV PRN ×3 (07:00→08:15)
[2019-06-23] MEDS ORDERED: ONDANSETRON PF 4 MG/2 ML VIAL. IV PRN (07:00)
[2019-06-23] MEDS ORDERED: IV RINGERS,LACTATED 1000ML 1,000 ML IV SCH (07:00)
[2019-06-23] MEDS ORDERED: LIDOCAINE 1% PF 2 ML VIAL. ID PRN (07:00)
[2019-06-23] MEDS ORDERED: MORPHINE SULFATE 2 MG/ML VIAL. IV PRN ×2 (07:00→08:15)
[2019-06-23] MEDS ORDERED: ONDANSETRON PF 4 MG/2 ML VIAL. ONE (07:48)
[2019-06-23] MEDS ORDERED: PROPOFOL 20 ML IV ONE (07:48)
[2019-06-23] MEDS ORDERED: LIDOCAINE 2% PF 5 ML VIAL. ONE (07:48)
[2019-06-23] MEDS ORDERED: DEXAMETHASONE SOD PHOS 4 MG/ML VIAL ONE (07:48)
[2019-06-23] MEDS ORDERED: fentaNYL PF VIAL 100 MCG/2 ML VIAL ONE ×2 (07:48→10:41)
[2019-06-23] MEDS ORDERED: TRANEXAMIC ACID 1,000 MG in IV NS 50ML -- 2ND BAG INJ ONE (08:00)
[2019-06-23 08:02] LABS: PROTHROMBIN TIME PATIENT 13.2 SEC (11.7-14.0)
[2019-06-23] MEDS ORDERED: IV NORMAL SALINE 1000ML BAG 1,000 ML IV SCH (08:10)
[2019-06-23] MEDS ORDERED: PROCHLORPERAZINE 5 MG TABLET. PO PRN (08:15)
[2019-06-23] MEDS ORDERED: DEXTROSE 50% 25 GM / 50ML DISP.SYRIN. IV PRN (08:15)
[2019-06-23] MEDS ORDERED: CALCIUM CARBONATE 500 MG TAB.CHEW PO PRN (08:15)
[2019-06-23] MEDS ORDERED: ZOLPIDEM 5 MG TABLET. PO PRN (08:15)
[2019-06-23] MEDS ORDERED: diphenhydrAMINE 50 MG/ML VIAL IV PRN (08:15)
[2019-06-23] MEDS ORDERED: 0.9 % SODIUM CHLORIDE 10 ML DISP.SYRIN. IV PRN (08:15)
[2019-06-23] MEDS ORDERED: ePHEDrine PF IN SALINE 50 MG/10 ML SYRINGE. IV ONE (08:20)
[2019-06-23] MEDS ORDERED: PHENYLEPHRINE in 0.9% NACL PF 1 MG/10 ML SYRINGE. IV ONE (08:20)
[2019-06-23] MEDS ORDERED: SEVOFLURANE > 120 MINUTES. IH ONE (08:57)
[2019-06-23] MEDS ORDERED: ceFAZolin 2GM PREMIX 2 GM/50 ML BAG IV ONE (09:00)
[2019-06-23] MEDS: MULTIVITAMIN with MINERAL TABLET. PO SCH (09:00)
--- NOTE | 2019-06-23 09:00 | EKG ---
[facility] [address] [place] [address] Test Date: 2019-06-23 Test Time: 07:47:41 Pat Name: LUIS ESPARZA Department: Room: Gender: M Medical Physiologist: CADE : 1950 Requested By: ANA ACOSTA Order Number: [id number] Reading MD: Measurements Intervals Parrish Rate: 93 P: TX: QRS: -63 QRSD: 178 T: 80 QT: 394 QTc: 493 Interpretive Statements IRREGULAR RHYTHM, NO P-WAVE FOUND ABNORMAL LEFT AXIS DEVIATION NON SPECIFIC INTRAVENTRICULAR BLOCK QRS(T) CONTOUR ABNORMALITY CONSISTENT WITH ANTEROSEPTAL INFARCT PROBABLY OLD CONSISTENT WITH INFERIOR INFARCT POSSIBLY RECENT ABNORMAL ECG RI6.01 Compared to ECG 06/18/2018 18:08:49 Left-axis deviation now present Myocardial infarct finding now present
--- NOTE | 2019-06-23 09:06 | HP ---
ADMIT DATE: 06/23/2019 PREOPERATIVE HISTORY AND PHYSICAL CHIEF COMPLAINT: Bilateral knee pain, left worse than right. HISTORY OF PRESENT ILLNESS: The patient is a 68-year-old male with longstanding bilateral knee pain more and more affecting his activities of daily living, left worse than right. He has had a total of 3 cortisone injections, activity modification. He said the first cortisone injection worked fairly well, the second one only worked a couple of weeks and the third about 2 days. Viscosupplementation gave him no relief. He was actually going to get surgery done prior to this, but underwent spine surgery last year, which was more urgent at that time as he was down in a wheelchair before that. He is now up walking around. He received clearance from his mechanical process engineer, Dr. Berry and his partner at the [facility]. PAST MEDICAL HISTORY: Significant for hypertension. FAMILY HISTORY: Denies any family history. SOCIAL HISTORY: Denies smoking, alcohol or drug use. MEDICATIONS: List is reviewed. ALLERGIES: He has no known drug allergies. REVIEW OF SYSTEMS: Denies any chest pain, shortness of breath, fever, chills, other constitutional symptoms or recent illness. PHYSICAL EXAMINATION: VITAL SIGNS: Temperature 98.6, 97% saturation on room air, pulse 51, respirations 20, blood pressure 125/69. HEENT: Atraumatic, normocephalic. HEART: Regular rate and rhythm. LUNGS: Clear to auscultation bilaterally. ABDOMEN: Benign. EXTREMITIES: Examination of both knees: He has slight varus bilaterally. No gross ligament instability. Moderate patellofemoral crepitus bilaterally. Joint line tenderness worse on the left than on the right. Normal alignment, stability, bilateral hips and ankles with intact motor function, distal pulses, sensation, reflexes, and skin in both lower extremities throughout. IMPRESSION: Primary osteoarthritis, both knees. Pain, both knees, left more than right. TREATMENT PLAN: I previously gone over with him risks, benefits, postoperative course of possibility of total knee arthroplasty as he has exhausted his other nonoperative treatment alternatives. We went through the possibility of infection, nerve or blood vessel damage, medical or other anesthetic complications among others. He wishes to proceed with a total knee arthroplasty and will undergo outpatient observation initially postoperatively. MOISES ESTRELLA MD DR: PEGGY/kaye JOB#: [id number] / [id number]
[2019-06-23] MEDS ORDERED: HYDROmorphone 2 MG/ML VIAL ONE (10:13)
[2019-06-23] MEDS ORDERED: PROCHLORPERAZINE 10 MG/2 ML VIAL. ONE (10:41)
[2019-06-23] MEDS: ONDANSETRON PF 4 MG/2 ML VIAL. IV SCH ×2 (12:00→18:00)
[2019-06-23] MEDS: ONDANSETRON ODT 4 MG TAB.RAPDIS. PO SCH ×2 (12:00→18:00)
--- NOTE | 2019-06-23 12:03 | RAD ---
EXAM: Left knee, 2 views. HISTORY: Arthroplasty. COMPARISON: None. FINDINGS: 2 views of the left knee are obtained. There is a left knee arthroplasty in expected position. There is gas, joint fluid and a drain due to recent surgery. IMPRESSION: Left knee arthroplasty in expected position, with surrounding soft tissue changes due to recent surgery. Electronically signed by: Mini Farmer MD (06/23/2019 11:59 AM) [id number]
--- NOTE | 2019-06-23 13:00 | NUR ---
Patient arrived to the floor from PACU around 1230 in a bed. Oxygen on at 2L. He did not have any SCDs, Jese, or ANDREWS hose on so they were placed by this nurse. Pain rated at a two and he did not want any more pain medication at that time. IV infusing properly in his left arm. Vital signs stable, slightly tachy when being spoken to. at bedside. GARDENIA covered with SHELLEY wrap present on his LLE. Hemovac and IAC intact. Pulses equal bilaterally and he is able to move all his extremities independently when being spoken to. Will continue to monitor.
--- NOTE | 2019-06-23 13:17 | PDOC4 ---
Operative Note Operative Note Date of surgery: 06/23/2019 Preoperative diagnosis: Degenerative joint disease left knee Postoperative diagnosis: Same Operative procedure: Left total knee arthroplasty Surgeon: Dianna Assist: Braxton Estimated blood loss: 25 mL Complications: None Specimens: Cartilage surfaces to pathology Drains: Hemovac and intra-articular pain catheter Operative indications: Please see my clinic notes and preoperative history and physical for detailed operative indications Operative procedure: Patient was placed in the supine position on the operating table. After adequate amounts of general anesthesia were administered a thigh tourniquet was placed in the left lower extremity prepped and draped in standard sterile fashion. After timeout was performed patient procedure identified and verified the leftt lower extremity was exsanguinated with Esmarch bandage, tourniquet inflated to 350 mmHg a midline incision was made medial parapatellar approach was carried out patella was everted fat pad excised intramedullary guide was used to position the cutting guide for an additional 2 mm distal femur cut as he had mild flexion contracture. Femur was sized at a size 6 AP lateral chamfer cuts were made extra medullary tibial cutting guide was aligned with the malleoli as the foot had significant deformity and pinned in place. Tibial cut was made and the posterior cruciate ligament was excised due to significant posterior bone therefore after balancing the knee in flexion extension the femur was prepared for a posterior stabilized construct by accomplishing a box cut. Tibia trial was placed excess osteophytes removed drilled and broached and trial fit with the size 6 femur size 6 tibia and a 9 mm spacer which gave excellent range of motion and stability the patella was prepared with a 36 mm biconcave patellar button which was medialized and had excellent tracking. Trial components were removed bleeding points controlled by electrocautery and the following Peterson and nephew components were cemented in place with polymethylmethacrylate cement a size 6 journey 2 nonporous tibial baseplate a size 6 posterior stabilized cobalt chrome femoral component and a size 36 mm all polyethylene resurfacing patellar component. A 10 mm posterior stabilized spacer was placed after irrigation was carried out normal saline solution Hemovac drain and pain catheter were placed pain catheter mixture injected throughout the joint capsule. Retinaculum was closed with interrupted #5 Ethibond reinforced with #1 PDS strata fix suture in a running fashion subcutaneous closure with buried Vicryl suture subcuticular 3-0 strata fix Monocryl followed by a david drain and Acticoat. Tourniquet was deflated and toes were noted be warm and pink following deflation patient was returned to recovery room in stable condition having tolerated the procedure well Benji Limon nurse practitioner was present for the procedure and assisted in the patient positioning prepping retraction and skin closure MOISES ESTRELLA MD Jun 23, 2019 13:16
[2019-06-23] MEDS: oxyCODONE IR 5 MG TABLET PO PRN ×2 (13:31→21:09)
[2019-06-23] MEDS: CYCLOBENZAPRINE 10 MG TABLET. PO SCH ×2 (13:31→21:05)
[2019-06-23] MEDS: SENNOSIDES/DOCUSATE 8.6/50MG TABLET. PO SCH (13:31)
[2019-06-23] MEDS ORDERED: WARFARIN 7.5 MG TABLET. PO ONE (16:00)
[2019-06-23] MEDS: LISINOPRIL 10 MG TABLET PO SCH (16:00)
[2019-06-23] MEDS: FERROUS SULFATE 325 MG TABLET. PO SCH (16:49)
[2019-06-23] MEDS: KETOROLAC 30MG VIAL 30 MG, BUPIVACAINE MPF 0.25% 20 ML, EPINEPHrine 0.5 MG in TOTAL VOL... INT ART SCH (18:30)
[2019-06-23] MEDS: GABAPENTIN 300 MG CAPSULE. PO SCH (21:05)
[2019-06-23] MEDS: ATORVASTATIN CALCIUM 20 MG TABLET PO SCH (21:05)
[2019-06-23] MEDS: METOPROLOL TART IMMED RELEASE 25 MG TABLET. PO SCH (21:06)
--- NOTE | 2019-06-23 22:00 | NUR ---
ready for bed. voided 100 cc per urinal. ambulated to bathroom voids large amount. states he feels better since bladder was empty. states pain is about a "4" ; medicated with oxycodone. denies nausea. cpap placed.
[2019-06-24 01:59] VITALS: BP 90/57
[2019-06-24 05:41] LABS: HEMATOCRIT 32.4 % (39.0-53.0); HEMOGLOBIN 11.2 g/dL (13.0-17.5)
[2019-06-24] MEDS: ONDANSETRON PF 4 MG/2 ML VIAL. IV SCH ×2 (05:52)
[2019-06-24] MEDS: ONDANSETRON ODT 4 MG TAB.RAPDIS. PO SCH ×2 (05:59)
[2019-06-24] MEDS ORDERED: MAGNESIUM HYDROXIDE 2,400 MG/30 ML ORAL.SUSP. PO PRN (06:00)
[2019-06-24] MEDS ORDERED: GABAPENTIN 100 MG CAPSULE. PO SCH (06:00)
[2019-06-24] MEDS: traMADol 50 MG TABLET PO SCH ×3 (06:01→17:33)
[2019-06-24] MEDS: KETOROLAC 30MG VIAL 30 MG, BUPIVACAINE MPF 0.25% 20 ML, EPINEPHrine 0.5 MG in TOTAL VOL... INT ART SCH (06:03)
[2019-06-24 06:20] LABS: PROTHROMBIN TIME PATIENT 16.2 SEC (11.7-14.0)
[2019-06-24 06:25] VITALS: BP 98/54
--- NOTE | 2019-06-24 07:02 | NUR ---
pretty is awake. states pain /spasms are better and rating his pain a "4". denies nausea or trouble voiding. awaiting breakfast
--- NOTE | 2019-06-24 07:21 | PDOC ---
ORTHO PROGRESS NOTES Subjective Patient states no pain at this time. Post-op Day: 1 Procedure L TKA Vitals Vital Signs Date Time Temp Pulse Resp B/P (MAP) Pulse Ox O2 Delivery O2 Flow Rate FiO2 06/24/19 07:01 16 BiPAP/CPAP 06/24/19 06:25 98.5 62 98/54 (69) 98 98.5 06/23/19 14:00 2.0 Labs Laboratory Tests Test 06/23/19 07:09 06/24/19 04:20 Prothrombin Time 13.2 SEC (11.7-14.0) 16.2 SEC (11.7-14.0) Prothromb Time International Ratio 1.0 (0.8-1.1) 1.3 (0.8-1.1) Activated Partial Thromboplast Time 31 SEC (24-38) Hemoglobin 11.2 g/dL (13.0-17.5) Hematocrit 32.4 % (39.0-53.0) Mean Corpuscular Hemoglobin Concent 35 g/dL (31-37) Laboratory Tests Test 06/24/19 04:20 Hemoglobin 11.2 g/dL (13.0-17.5) Hematocrit 32.4 % (39.0-53.0) Mean Corpuscular Hemoglobin Concent 35 g/dL (31-37) Prothrombin Time 16.2 SEC (11.7-14.0) Prothromb Time International Ratio 1.3 (0.8-1.1) Notes awake and alert Assessment and Plan POD # 1 S/P L TKA motor and sensation intact dressing dry and intact continue PT ANDREW CHAPA APRN Jun 24, 2019 07:21
[2019-06-24 08:03] VITALS: BP 93/55
[2019-06-24] MEDS: FERROUS SULFATE 325 MG TABLET. PO SCH ×2 (08:06→17:33)
[2019-06-24] MEDS: SENNOSIDES/DOCUSATE 8.6/50MG TABLET. PO SCH (08:06)
[2019-06-24] MEDS: MULTIVITAMIN with MINERAL TABLET. PO SCH (08:06)
[2019-06-24] MEDS: ACETAMINOPHEN 500 MG TABLET PO SCH ×3 (08:07→21:06)
[2019-06-24] MEDS: CYCLOBENZAPRINE 10 MG TABLET. PO SCH (08:07)
[2019-06-24] MEDS: MELOXICAM 7.5 MG TABLET PO SCH (08:07)
[2019-06-24] MEDS: amLODIPine BESYLATE 10 MG TABLET PO SCH (08:08)
[2019-06-24] MEDS: METOPROLOL TART IMMED RELEASE 25 MG TABLET. PO SCH ×2 (08:08→21:00)
[2019-06-24] MEDS: LISINOPRIL 20 MG TABLET PO SCH (08:08)
[2019-06-24] MEDS: GABAPENTIN 300 MG CAPSULE. PO SCH ×2 (08:09→21:06)
[2019-06-24] MEDS: oxyCODONE IR 5 MG TABLET PO PRN ×2 (09:18→15:46)
[2019-06-24] MEDS ORDERED: ONDANSETRON ODT 4 MG TAB.RAPDIS. PO PRN (12:00)
[2019-06-24] MEDS ORDERED: ONDANSETRON PF 4 MG/2 ML VIAL. IV PRN (12:00)
[2019-06-24] MEDS: BACLOFEN 10MG TABLET PO SCH ×2 (13:19→21:07)
[2019-06-24] MEDS: LISINOPRIL 10 MG TABLET PO SCH (15:49)
[2019-06-24] MEDS ORDERED: WARFARIN 5 MG TABLET. PO ONE (16:00)
[2019-06-24] MEDS ORDERED: BISACODYL 10 MG SUPP.RECT. PR PRN (16:00)
[2019-06-24 17:35] VITALS: BP 92/51
[2019-06-24 19:15] VITALS: BP 104/57
[2019-06-24 21:00] VITALS: BP_SYST 107; BP_SYST 112; BP_DIAS 60
[2019-06-24] MEDS: ATORVASTATIN CALCIUM 20 MG TABLET PO SCH (21:06)
[2019-06-25] MEDS: traMADol 50 MG TABLET PO SCH ×4 (00:02→16:54)
[2019-06-25] MEDS: ACETAMINOPHEN 500 MG TABLET PO SCH ×4 (03:13→21:16)
[2019-06-25] MEDS: oxyCODONE IR 5 MG TABLET PO PRN ×4 (04:04→21:16)
[2019-06-25 04:28] LABS: HEMATOCRIT 31.4 % (39.0-53.0)
[2019-06-25 04:39] LABS: PROTHROMBIN TIME PATIENT 17.8 SEC (11.7-14.0)
[2019-06-25 06:14] VITALS: BP 95/55
[2019-06-25] MEDS ORDERED: BISACODYL 5 MG TABLET.DR. PO PRN (08:00)
[2019-06-25] MEDS: MULTIVITAMIN with MINERAL TABLET. PO SCH (08:22)
[2019-06-25] MEDS: MELOXICAM 7.5 MG TABLET PO SCH (08:22)
[2019-06-25] MEDS: FERROUS SULFATE 325 MG TABLET. PO SCH ×2 (08:22→16:53)
[2019-06-25] MEDS: GABAPENTIN 300 MG CAPSULE. PO SCH ×2 (08:22→21:15)
[2019-06-25] MEDS: SENNOSIDES/DOCUSATE 8.6/50MG TABLET. PO SCH (08:23)
[2019-06-25] MEDS: BACLOFEN 10MG TABLET PO SCH ×3 (08:23→21:18)
[2019-06-25 08:27] VITALS: BP 116/68
[2019-06-25] MEDS: METOPROLOL TART IMMED RELEASE 25 MG TABLET. PO SCH ×2 (09:00→21:00)
[2019-06-25] MEDS: LISINOPRIL 20 MG TABLET PO SCH (09:00)
[2019-06-25] MEDS: amLODIPine BESYLATE 10 MG TABLET PO SCH (09:00)
--- NOTE | 2019-06-25 11:40 | NUR ---
Pharmacy Warfarin Dosing Note S: Pharmacy consulted to assist with anticoagulation therapy started 06/23/19 O: LUIS ESPARZA is a 68 year old M with TKA LABS: Last INR: 1.5 Last HGB: 11.0 Last dose of 5 mg given on 06/24/19 at 1546 Ongoing Drug Interactions: MOBIC A:INR of 1.5 is below desired range. Target range for this patient is: 1.6 - 2.5 P: Warfarin dose: 3 mg Today at 1600 Bridge Therapy: WARFARIN Next INR due 06/26/19 AM Pharmacy anticoagulation service will continue to follow. OMER LENZ RPH, 06/25/19 [id number]
--- NOTE | 2019-06-25 14:07 | PATHOLOGY ---
[facility] Accession Number: [id number] . 01 Material submitted: . knee - LEFT KNEE BONE AND TISSUE. Modifiers: left . 01 Clinical history: . Osteoarthritis left knee . 02 Diagnosis: Segments of bone and soft tissue, left total knee arthroplasty: - Advanced degenerative arthritis. - Focal mild non-specific chronic synovitis. (JPM/db; 06/25/2019) MBR 06/25/2019 0940 Local . 02 Electronically signed: . Bernardino Conde MD, Pathologist NPI- [id number] . 01 Gross description: . The specimen is received in formalin, labeled "Candelario Gomez, left knee bone and tissue" and consists of multiple segments of pink-hsieh bone including the tibial plateau with a small amount of attached yellow lobulated tissue measuring 16.0 x 14.0 x 2.5 cm in aggregate. The meniscus is present. Osteophytes are present. The articular surfaces display extensive roughening and eburnation. Learning Center Instructor sections are submitted in A1-A2 with A2 following decalcification. (SDY; 06/23/2019) SYU/SYU 06/23/2019 1704 Local . 02 Pathologist provided ICD-10: M17.12 . 02 CPT . 510170, [id number] Specimen Comment: A courtesy copy of this report has been sent to [phone] Specimen Comment: Report sent to Performed at: 01 [facility] [address], [place] [id number] MD Ryan Sanchez MD Phone: [phone] Performed at: 02 [facility] [address] [place], [place] [id number] MD Bernardino Conde MD Phone: [phone]
--- NOTE | 2019-06-25 15:57 | NUR ---
pretty is doing well. tolerated both rehab sessions with roxicodone and tramadol for pain control. he is taking his own baclofen for muscle spasms. he remains hypotensive ; blood pressure medications held today and Benji informed during rounds.
[2019-06-25] MEDS: LISINOPRIL 10 MG TABLET PO SCH (16:00)
[2019-06-25] MEDS ORDERED: WARFARIN 3 MG TABLET. PO ONE (16:00)
[2019-06-25 17:56] VITALS: BP 118/68
[2019-06-25] MEDS: ATORVASTATIN CALCIUM 20 MG TABLET PO SCH (21:16)
[2019-06-26] MEDS: traMADol 50 MG TABLET PO SCH ×3 (00:05→12:07)
[2019-06-26] MEDS: ACETAMINOPHEN 500 MG TABLET PO SCH ×3 (03:00→15:13)
[2019-06-26 04:17] LABS: HEMATOCRIT 31.9 % (39.0-53.0)
[2019-06-26 04:25] LABS: PROTHROMBIN TIME PATIENT 18.8 SEC (11.7-14.0)
[2019-06-26 06:04] VITALS: BP 109/67
[2019-06-26] MEDS: oxyCODONE IR 5 MG TABLET PO PRN ×2 (06:47→15:26)
[2019-06-26] MEDS: GABAPENTIN 300 MG CAPSULE. PO SCH (08:35)
[2019-06-26] MEDS: SENNOSIDES/DOCUSATE 8.6/50MG TABLET. PO SCH (08:35)
[2019-06-26] MEDS: MELOXICAM 7.5 MG TABLET PO SCH (08:35)
[2019-06-26] MEDS: MULTIVITAMIN with MINERAL TABLET. PO SCH (08:35)
[2019-06-26] MEDS: FERROUS SULFATE 325 MG TABLET. PO SCH (08:36)
[2019-06-26] MEDS: BACLOFEN 10MG TABLET PO SCH ×2 (08:38→15:14)
[2019-06-26] MEDS: METOPROLOL TART IMMED RELEASE 25 MG TABLET. PO SCH (09:00)
[2019-06-26] MEDS: LISINOPRIL 20 MG TABLET PO SCH (09:00)
[2019-06-26] MEDS: amLODIPine BESYLATE 10 MG TABLET PO SCH (09:00)
--- NOTE | 2019-06-26 10:46 | NUR ---
Pharmacy Warfarin Dosing Note S: Pharmacy consulted to assist with anticoagulation therapy started 06/23/19 O: LUIS ESPARZA is a 68 year old M with TKA LABS: Last INR: 1.6 Last HGB: 11.0 Last HCT: 31.9 Last PLT: - Last dose of 3 mg given on 06/25/19 at 1652 Ongoing Drug Interactions: MOBIC A:INR of 1.6 is within desired range. Target range for this patient is: 1.6 - 2.5 P: Warfarin dose: 4 mg Prior to Discharge Bridge Therapy: WARFARIN Next INR due Wednesday 06/28 Pharmacy anticoagulation service will continue to follow. Suzy William RPH, 06/26/19 1040
[2019-06-26] MEDS ORDERED: TRAM50TA PO (11:20)
[2019-06-26] MEDS ORDERED: OXYC5CAP PO (11:20)
--- NOTE | 2019-06-26 11:22 | DISCH ---
DISCHARGE INSTRUCTIONS Condition on Discharge Condition on Discharge: Stable Activity After Discharge Activity Instructions for Disc: Other, see below (advance activity as gloria ated) Bathing Instructions: Shower-keep dressing dry, No Tub Bath until see Exercise Instruction after Dis: Progress as tolerated Driving Instructions after Dis: No driving for 2 weeks Weight Bearing Status after Di: No restrictions, Full weight bearing, As tolerated Diet after Discharge Diet after Discharge: Regular Additional Diet Restrictions: resume home diet Diet Texture: Regular Liquid Texture: Thin Liquid Swallowing Supervision: None needed Wound Incision Care Wound/Incision Care: Ice to area for comfort, Do not change dressing (report if dressing is saturated otherwise keep david dressing intact) Contacting the DRRamona after DC Call your doctor for: Concerns you may have Follow-Up Follow up with: Dr. Bustamante 2 weeks postoperatively Treatment/Equipment after DC Adaptive Equipment Issued: MOISES Cohn MD Jun 26, 2019 11:22
[2019-06-26 12:00] VITALS: BP 119/64
[2019-06-26] MEDS ORDERED: WARFARIN 4 MG TABLET. PO ONE (14:00)
[2019-06-26] MEDS ORDERED: WARF4TAB64 PO (14:26)
[2019-06-26 15:00] VITALS: BP 130/66
--- NOTE | 2019-06-26 15:30 | NUR ---
Discharge instructions given with prescriptions. Answered questions and concerns. Verbalized understanding. Pt discharged home accompanied by spouse.
--- NOTE | 2019-06-27 12:45 | DS ---
DATE OF DISCHARGE: 06/26/2019 ORTHOPEDIC DISCHARGE SUMMARY CHIEF COMPLAINT: Left knee pain. PROCEDURE: Left total knee arthroplasty. DISPOSITION: Home with outpatient physical therapy. DISPOSITION MEDICATIONS: Include oxycodone 5 mg p.o. q. 4 hours p.r.n. severe pain, tramadol 50 mg p.o. q. 4 hours p.r.n. moderate pain, Coumadin as directed by anticoagulation clinic and resume preoperative medications. Follow up with Dr. Bustamante in 2 weeks. ACTIVITY: Weightbearing as tolerated, standard total knee precautions, maintain GARDENIA dressing, call if saturated. Call with any fever, chills, uncontrolled pain or other problems. BRIEF DESCRIPTION OF HOSPITAL COURSE: The patient underwent uncomplicated left total knee arthroplasty and remained medically stable throughout his course, progressed well with physical therapy. He had some distal drainage on his GARDENIA dressing that had not enlarged from postoperative day #2 to postoperative day #3. He was getting around safely in ambulation and transfers and was discharged home in stable condition. MOISES BUSTAMANTE MD DR: PEGGY/kaye JOB#: [id number] / [id number]
[2019-06-27] MEDS ORDERED: WARFARIN 4 MG TABLET. PO SCH (16:00)
== END 2019-06-26 15:30 | disposition home or self-care (01) | DRG 470 ==
LOC: SURG 06:26 → 4 SOUTHEST 11:04 → OBSVTOIN 11:35
PROVIDERS: ADMIT Orthopaedic Surgery; ATTEND Orthopaedic Surgery
PROC: 5A09357 Assistance with Respiratory Ventilation, Less than 24 Consecutive Hours, Continuous Positive Airway Pressure (ICD-10-PCS; 2019-06-23)
PROC: 0SRD0J9 Replacement of Left Knee Joint with Synthetic Substitute, Cemented, Open Approach (ICD-10-PCS; principal; 2019-06-23 08:00)
PROC: 5A09357 Assistance with Respiratory Ventilation, Less than 24 Consecutive Hours, Continuous Positive Airway Pressure (ICD-10-PCS; 2019-06-25)
PROC: 5A09357 Assistance with Respiratory Ventilation, Less than 24 Consecutive Hours, Continuous Positive Airway Pressure (ICD-10-PCS; 2019-06-26)
DX: M17.0 Bilateral primary osteoarthritis of knee (principal); I10 Essential (primary) hypertension; Z96.652 Presence of left artificial knee joint
CPT/HCPCS: 36415; 73560; 85014; 85018; 85610; 85730; 86850; 86900; 86901; 88305; 88311; 93005; A7015; C1713; G0379; J0171; J0696; J0780; J1100; J1170; J1885; J2001; J2270; J2370; J2405; J2704; J2795; J3010; J3490; J7030; 97116; 97150; 97530; 97535; C1769; G0378; Q0162